=== PATIENT | female | born 1950 | race Caucasian/White ===

== ENCOUNTER 2020-07-16 09:09 | Outpatient (REF) | payer MEDICARE, SELFPAY ==
[2020-07-16 12:24] LABS: Estimated Average Glucose 131 mg/dL; Hemoglobin A1C 152.5171 umol/L; Hemoglobin A1c % 6.2 %
[2020-07-16 12:26] LABS: Alanine Aminotransferase 10 U/L (0-31); Albumin Level 3.9 g/dL (3.5-5.0); Alkaline Phosphatase 77 U/L (39-117); Anion Gap 13 (12-20); Aspartate Amino Transferase 14 U/L (5-31); Bilirubin Total 0.6 mg/dL (0.0-1.0); Blood Urea Nitrogen 22 mg/dL (9-16); Calcium 8.8 mg/dL (8.4-10.2); Carbon Dioxide 32 mmol/L (22-29); Chloride 100 mmol/L (96-108); Cholesterol 169 mg/dL; Estimated Glomerular Filt Rate > 60; Glucose Fasting 115 mg/dL (60-99); HDL Cholesterol 45 mg/dL; LDL Cholesterol Calculated 104 mg/dl; Potassium 4.9 mmol/l (3.3-5.1); Sodium 140 mmol/L (135-145); Total Protein 6.6 g/dL (6.5-8.0); Triglycerides 103 mg/dL
[2020-07-16 13:34] LABS: Microalbumin Urine < 5.0 mg/L
== END 2020-07-16 09:10 | disposition home or self-care (01) ==
LOC: HO.HMGCLDS 09:09
PROVIDERS: PCP Internal Medicine; Visit Provider Internal Medicine
DX: E11.9 Type 2 diabetes mellitus without complications (principal); I25.10 Atherosclerotic heart disease of native coronary artery without angina pectoris; E55.9 Vitamin D deficiency, unspecified; I10 Essential (primary) hypertension; E78.5 Hyperlipidemia, unspecified; Z78.0 Asymptomatic menopausal state
CPT/HCPCS: 36415; 80053; 80061; 82043; 82306; 83036

== ENCOUNTER 2020-12-24 08:28 | Outpatient (REF) | payer MEDICARE, SELFPAY ==
[2020-12-24 11:31] LABS: Estimated Average Glucose 140 mg/dL; Hemoglobin A1c % 6.5 %
[2020-12-24 11:44] LABS: Alanine Aminotransferase 8 U/L (0-31); Albumin Level 3.9 g/dL (3.5-5.0); Alkaline Phosphatase 78 U/L (39-117); Anion Gap 13 (12-20); Aspartate Amino Transferase 15 U/L (5-31); Bilirubin Total 0.6 mg/dL (0.0-1.0); Blood Urea Nitrogen 23 mg/dL (9-16); Calcium 9.3 mg/dL (8.4-10.2); Carbon Dioxide 30 mmol/L (22-29); Chloride 102 mmol/L (96-108); Cholesterol 156 mg/dL; Estimated Glomerular Filt Rate > 60; Glucose Fasting 124 mg/dL (60-99); HDL Cholesterol 51 mg/dL; LDL Cholesterol Calculated 87 mg/dl; Potassium 4.8 mmol/L (3.3-5.1); Sodium 140 mmol/L (135-145); Total Protein 6.4 g/dL (6.5-8.0); Triglycerides 90 mg/dL
[2020-12-24 11:56] LABS: Vitamin D 25-OH Total 48.4 ng/mL (>30)
== END 2020-12-24 08:29 | disposition home or self-care (01) ==
LOC: HO.HMGCLDS 08:28
PROVIDERS: PCP Internal Medicine; Visit Provider Internal Medicine
DX: E11.9 Type 2 diabetes mellitus without complications (principal); I25.10 Atherosclerotic heart disease of native coronary artery without angina pectoris; E55.9 Vitamin D deficiency, unspecified; I10 Essential (primary) hypertension; E78.5 Hyperlipidemia, unspecified; Z78.0 Asymptomatic menopausal state
CPT/HCPCS: 36415; 80053; 80061; 82306; 83036

== ENCOUNTER 2022-05-25 03:32 | Inpatient (IN) | payer MEDICARE, SELFPAY ==
[2022-05-25] VITALS (7 sets, daily range): BP systolic 135–165; BP diastolic 42–78; PULSE 71–88; RESP 16–20; TEMP 36.4–36.8; O2SAT 92–98; BMI 48.8
--- NOTE | ~2022-05-25 | CT_ITS ---
EXAMINATION: CT ABDOMEN AND PELVIS WITH CONTRAST CLINICAL INFORMATION: Upper abdominal pain. COMPARISON: None TECHNIQUE: Multidetector volumetric images were obtained from the superior aspect of the liver through the pubic symphysis following administration 85 mL of Omnipaque 350 intravenous contrast. Sagittal and coronal reformatted images were obtained on the technologist's workstation. Oral contrast: No This CT examination was performed using dose optimization techniques as appropriate, variously including the following: *Automated exposure control *Adjustment of mA and/or kV according to patient size (this includes techniques or standardized protocols for targeted exams where dose is matched to indication/reason for exam; i.e. extremities or head) *Use of iterative reconstruction technique DLP: 1103 mGy-cm FINDINGS: LUNG BASES: The visualized lung bases are clear. Coronary artery calcifications noted. LIVER, GALLBLADDER, AND BILIARY TREE: The liver is normal in size, shape, and attenuation. No focal hepatic lesion or biliary ductal dilatation is present. Stones noted in the gallbladder lumen. No wall thickening or adjacent inflammation. PANCREAS: The pancreatic parenchyma is homogenous. Faint inflammatory stranding noted surrounding the pancreatic head. SPLEEN: Unremarkable. ADRENAL GLANDS: Unremarkable. KIDNEYS AND URETERS: The kidneys are normal in size, shape, and attenuation. No hydronephrosis, hydroureter, or calculi seen. No perinephric stranding. BLADDER: Unremarkable. GASTROINTESTINAL TRACT: The small and large bowel are unremarkable. The appendix is unremarkable. ABDOMINAL WALL: No significant hernia is appreciated. LYMPH NODES: Normal. VASCULAR: Unremarkable. PELVIC VISCERA: Uterus not seen. No adnexal mass. Unremarkable. OSSEOUS STRUCTURES: No acute or suspicious osseous abnormality. Mild degenerative ch 1. Faint inflammatory stranding noted surrounding the pancreatic head. Correlate for pancreatitis. 2. Cholelithiasis. N: No significant abnormality. Fleischner guidelines were followed.
--- NOTE | ~2022-05-25 | US_ITS ---
EXAMINATION: US ABDOMEN COMPLETE CLINICAL INFORMATION: Gallstone pancreatitis. COMPARISON: CT abdomen and pelvis 05/25/2022. X-ray KUB 06/28/2014. X-ray abdomen 06/23/2014. Ultrasound abdomen complete 06/05/2013. TECHNIQUE: Real-time imaging of the abdominal viscera. FINDINGS: PANCREAS: Normal. ABDOMINAL AORTA: Not well visualized due to bowel gas INFERIOR VENA CAVA: Normal LIVER: The liver is normal in size. The liver contour is normal. Liver echotexture is slightly increased. No focal hepatic lesion. There is no intrahepatic biliary duct dilatation seen. GALLBLADDER: The gallbladder is abnormal appearing. Gallbladder is normal in size. There are gallstones. There is a heterogeneous partially calcified 2.3 x 3.5 cm mass in the gallbladder with some vascularity. The gallbladder wall is thickened measuring 0.7 cm. This is a new finding from previous exam. COMMON BILE DUCT: The distal common bile duct is not well visualized. The proximal duct is normal in caliber measuring 0.4 cm in diameter. RIGHT KIDNEY: Normal. No hydronephrosis. No renal calculi or focal parenchymal lesions. The kidney measures 11.2 cm in maximum dimension. LEFT KIDNEY: 1.4 x 1 x 1.1 cm cyst in the lateral midpole. No hydronephrosis or renal calculi. The kidney measures 10.2 cm in maximum dimension. SPLEEN: Not well visualized. FREE FLUID: None. US/US abdomen complete IMPRESSION: Abnormal appearing gallbladder. Gallstones. 2.3 x 3.5 cm heterogeneous partially calcified gallbladder mass and thickened gallbladder wall. Differential would include stones and sludge ball versus neoplasm. Normal caliber intrahepatic bile ducts and proximal common bile duct. The distal common bile duct is not well visualized.
--- NOTE | 2022-05-25 03:35 | ED.ABDPAIN ---
HPI - Abdominal Pain General Chief Complaint: Abdominal Pain Stated Complaint: abdominal pain Time Seen by Provider: 05/25/22 03:35 Source: patient Mode of arrival: EMS Limitations: no limitations History of Present Illness HPI narrative: Patient with perforated diverticulitis in the past complaining of upper abdomen right upper quadrant pain for last 2 days as with nausea and bloating is unable to eat much because of pain. No fever no chills no diarrhea pain radiates to the back. No chest pain no shortness of breath patient does complain of bloating nose and upper abdominal pain off and on for last 2- 3 years was told by PCP that she has a hiatal hernia Related Data Home Medications Medication Instructions Recorded Confirmed acetaminophen 500 mg tablet 500 mg PO Q6H PRN 03/28/21 05/09/22 (Tylenol Extra Strength) Previous Rx's Medication Instructions Recorded tizanidine 2 mg tablet 2 mg PO .QD PRN muscle spasticity 03/28/21 #30 tabs rosuvastatin 5 mg tablet 5 mg PO . 4 times a week 90 days 08/18/21 #48 tabs ezetimibe 10 mg tablet 10 mg PO DAILY #90 tabs 09/09/21 metoprolol succinate 100 mg 100 mg PO BEDTIME #90 tabs 10/05/21 tablet,extended release 24 hr citalopram 20 mg tablet 20 mg PO DAILY #90 caps 01/05/22 lisinopril 10 mg tablet 10 mg PO QAM #90 caps 01/05/22 Allergies Allergy/AdvReac Type Severity Reaction Status Date / Time adhesive tape Allergy Intermediate BLISTERS/LOCALIZED Verified 05/09/22 09:26 ITCHING codeine [CODEINE] Allergy Intermediate RASH, Verified 05/09/22 09:26 stomach upset atorvastatin [From Lipitor] Allergy Unknown leg cramps Verified 05/09/22 09:26 pravastatin Allergy Unknown leg cramps Verified 05/09/22 09:26 simvastatin Allergy Unknown leg cramps Verified 05/09/22 09:26 Ztjrwfn-[id number]-ZwF Reductase AdvReac Intermediate MYALGIAS Verified 05/09/22 09:26 Inhibitor [[id number] REDUCTASE INHIBITOR] Review of Systems Review of Systems Yes all other systems are reviewed and are negative PMFSH Past Medical History Medical History Abdominal gas pain Anxiety disorder CAD (coronary artery disease) Degenerative joint disease of knee, left Dyslipidemia Endometrial carcinoma Essential hypertension Macular degeneration Menopause Non-ST elevation myocardial infarction (NSTEMI) Ocular herpes simplex Type 2 diabetes mellitus without complication, without long-term current use of insulin Vitamin D deficiency Surgical History H/O heart artery stent History of 2 sections History of hysterectomy History of tonsillectomy History of total right knee replacement Family History Family History Father CVD (cardiovascular disease) Mother Hyperlipemia Manic depression Mental illness in member of household Mental health disorder Sister Stroke Manic depression History of mental problems Son Drug addiction Substance use disorder Daughter No problems noted. Social History Social History Alcohol intake: never Patient Tobacco Use Status: Never used Tobacco Smoked in Last 30 Days: No e-Cigarette/Vaping Use: Never Used Use of substances other than those prescribed or required for medical reasons: No Advance Directives: Yes Advance Directives on File: Yes Advance Directives Date on File: 05/09/22 Physical Exam ED Vital Signs: Vital Signs - 24 hr 05/25/22 03:39 05/25/22 04:49 05/25/22 06:17 Temperature 97.9 F 98.0 F 98.1 F Pulse Rate 84 83 80 Respiratory Rate 18 16 17 Blood Pressure 165/55 H 142/42 H 159/60 H Pulse Oximetry 96 95 94 Oxygen Delivery Method Room Air Room Air Room Air BMI result Body Mass Index 48.8 Appearance: Alert. Oriented X3. No acute distress. Eyes: PERRLA, No Nystagmus ENT: Pharynx normal. Oral Mucosa moist Neck: Normal inspection. Neck supple. CVS: Normal heart rate and rhythm. Pulses normal. Respiratory: No respiratory distress. Equal air entry bilateral, no wheezing/rales/rhonchi Abdomen: Soft , tenderness right upper quadrant, and epigastric area. Bowel sounds are present, no mass palpable, no CVA tenderness Skin: Skin warm and dry. Normal skin color. Normal skin turgor. Extremities: No lower extremity edema. No calf tenderness Neuro: Oriented X 3. No motor deficit. Medications Administered Discontinued Medications Generic Name Dose Route Start Last Admin Trade Name Subhash PRN Reason Stop Dose Admin Famotidine 20 mg 05/25/22 03:46 05/25/22 04:05 Famotidine/Pf 20 Mg/2 Ml Vial IVPUSH 05/25/22 03:47 20 mg ONCE ONE Administration Sodium Chloride 1,000 mls @ 999 mls/hr 05/25/22 03:45 05/25/22 04:05 Ns IV 05/25/22 04:45 999 mls/hr .Q1H1M ONE Administration Piperacillin Sod/Tazobactam 50 mls @ 100 mls/hr 05/25/22 05:49 05/25/22 06:09 Sod 3.375 gm/ Sodium Chloride IV 05/25/22 06:18 100 mls/hr ONCE ONE Administration Iohexol 85 ml 05/25/22 04:35 05/25/22 04:35 Iohexol 350 Mg/Ml 100 Ml Infus..Btl IV 05/25/22 04:36 85 ml ONCE ONE Administration Morphine Sulfate 4 mg 05/25/22 03:46 05/25/22 04:05 Morphine Sulfate 4 Mg/Ml Cartridge IVPUSH 05/25/22 03:47 4 mg ONCE ONE Administration Protocol Morphine Sulfate 4 mg 05/25/22 06:24 05/25/22 06:28 Morphine Sulfate 4 Mg/Ml Cartridge IVPUSH 05/25/22 06:25 4 mg ONCE ONE Administration Protocol Ondansetron HCl 4 mg 05/25/22 03:46 05/25/22 04:05 Ondansetron Hcl 4 Mg/2 Ml Vial IVPUSH 05/25/22 03:47 4 mg ONCE ONE Administration MDM - Abdominal Pain MDM Narrative Medical decision making narrative: Patient pain in right upper quadrant epigastric area with elevated LFTs workup showed gallstones with pancreatitis will admit patient for MRCP and evaluation Differential Diagnosis Differential diagnosis: Likely abdominal pain, pancreatitis and peptic ulcer disease Lab Data Attestation: I reviewed the patient's lab results. Result diagrams: 05/25/22 03:53 05/25/22 03:53 Labs: Lab Results 05/25/22 05/25/22 05/25/22 Range/Units 03:52 03:52 03:53 WBC 15.9 H (4.8-10.8) X10*3/uL RBC 4.44 (4.20-5.50) X10*6/uL Hgb 13.2 (12.0-16.0) g/dl Hct 40.5 (37.0-47.0) % MCV 91.2 (80.0-98.0) fL MCH 29.7 (27.0-33.0) pg MCHC 32.6 (31.0-35.0) g/dl RDW 12.7 (11.0-16.0) % Plt Count 271 (160-400) X10*3/uL MPV 9.3 L (9.4-12.3) fL Immature Gran % (Auto) 0.4 (0.0-0.4) % Neut % (Auto) 86.6 H (45-73) % Lymph % (Auto) 6.5 L (20-40) % [place] % (Auto) 6.1 (2-11) % Eos % (Auto) 0.1 (0-4) % Baso % (Auto) 0.3 (0-2) % Lymph # (Auto) 1.0 L (1.2-4.9) X10*3/uL [place] # (Auto) 1.0 (0.1-1.2) X10*3/uL Eos # (Auto) 0.0 (0.0-0.4) X10*3/uL Baso # (Auto) 0.0 (0.0-0.2) X10*3/uL Abs Immat Gran (auto) 0.07 H (0.00-0.03) X10*3/uL Absolute Neuts (auto) 13.8 H (2.0-8.3) x10*3/uL Absolute Nucleated RBC 0.000 (0.0-0.012) X10*3/uL Nucleated RBC % (auto) 0.0 (0.0-0.2) /100WBC PT (10.0-13.1) SEC INR (0.9-1.1) Sodium (135-145) mmol/L Potassium (3.3-5.1) mmol/L Chloride (96-108) mmol/L Carbon Dioxide (22-29) mmol/L Anion Gap (12-20) BUN (9-16) mg/dL Creatinine (0.5-1.4) mg/dL Estim Creat Clear Calc Estimated GFR Random Glucose (60-115) mg/dL Lactic Acid 1.4 (0.5-2.0) mmol/L Calcium (8.4-10.2) mg/dL Total Bilirubin (0.0-1.0) mg/dL AST (5-31) U/L ALT (0-31) U/L Alkaline Phosphatase (39-117) U/L Troponin I High Sens (<3.5-17.0) ng/L Total Protein (6.5-8.0) g/dL Albumin (3.5-5.0) g/dL Lipase (8-78) U/L COVID-19 ([facility]) Negative (Negative) COVID-19 Clin Com See Note 05/25/22 05/25/22 05/25/22 Range/Units 03:53 04:21 04:21 WBC (4.8-10.8) X10*3/uL RBC (4.20-5.50) X10*6/uL Hgb (12.0-16.0) g/dl Hct (37.0-47.0) % MCV (80.0-98.0) fL MCH (27.0-33.0) pg MCHC (31.0-35.0) g/dl RDW (11.0-16.0) % Plt Count (160-400) X10*3/uL MPV (9.4-12.3) fL Immature Gran % (Auto) (0.0-0.4) % Neut % (Auto) (45-73) % Lymph % (Auto) (20-40) % [place] % (Auto) (2-11) % Eos % (Auto) (0-4) % Baso % (Auto) (0-2) % Lymph # (Auto) (1.2-4.9) X10*3/uL [place] # (Auto) (0.1-1.2) X10*3/uL Eos # (Auto) (0.0-0.4) X10*3/uL Baso # (Auto) (0.0-0.2) X10*3/uL Abs Immat Gran (auto) (0.00-0.03) X10*3/uL Absolute Neuts (auto) (2.0-8.3) x10*3/uL Absolute Nucleated RBC (0.0-0.012) X10*3/uL Nucleated RBC % (auto) (0.0-0.2) /100WBC PT 12.2 (10.0-13.1) SEC INR 1.1 (0.9-1.1) Sodium 137 (135-145) mmol/L Potassium 4.4 (3.3-5.1) mmol/L Chloride 100 (96-108) mmol/L Carbon Dioxide 26 (22-29) mmol/L Anion Gap 15 (12-20) BUN 21 H (9-16) mg/dL Creatinine 0.84 (0.5-1.4) mg/dL Estim Creat Clear Calc 69.4 Estimated GFR > 60 Random Glucose 193 H (60-115) mg/dL Lactic Acid (0.5-2.0) mmol/L Calcium 9.2 (8.4-10.2) mg/dL Total Bilirubin 3.5 H (0.0-1.0) mg/dL AST 255 H (5-31) U/L ALT 354 H (0-31) U/L Alkaline Phosphatase 146 H (39-117) U/L Troponin I High Sens < 3.5 (<3.5-17.0) ng/L Total Protein 6.7 (6.5-8.0) g/dL Albumin 3.8 (3.5-5.0) g/dL Lipase 2497 H (8-78) U/L COVID-19 ([facility]) (Negative) COVID-19 Clin Com Discharge Plan Discharge Clinical Impression: Gallstone pancreatitis Patient Disposition: Admitted As Inpatient
--- NOTE | 2022-05-25 03:48 | ECG_ITS ---
Test Reason : ABD PAIN Blood Pressure : / mmHG Vent. Rate : 083 BPM Atrial Rate : 083 BPM P-R Int : 160 ms QRS Dur : 080 ms QT Int : 376 ms P-R-T Axes : 058 020 026 degrees QTc Int : 441 ms Normal sinus rhythm Nonspecific ST and T wave abnormality Abnormal ECG When compared with ECG of 20-JUN-2014 08:34, No significant change was found Referred By: Viet Garcia Electronically Signed By:DENISA LUA MD
[2022-05-25 03:58] LABS: MANUAL DIFF FLAG NO
[2022-05-25 04:00] LABS: Basophils Percent Auto 0.3 % (0-2); Eosinophils Percent Auto 0.1 % (0-4); Hematocrit 40.5 % (37.0-47.0); Hemoglobin 13.2 g/dl (12.0-16.0); Imm Gran Abs Auto 0.07 X10*3/uL (0.00-0.03); Imm Gran Pct Auto 0.4 % (0.0-0.4); Lymphocytes Percent Auto 6.5 % (20-40); Mean Corpuscular HGB Conc 32.6 g/dl (31.0-35.0); Mean Corpuscular Hemoglobin 29.7 pg (27.0-33.0); Mean Corpuscular Volume 91.2 fL (80.0-98.0); Mean Platelet Volume 9.3 fL (9.4-12.3); Monocytes Percent Auto 6.1 % (2-11); Neutrophils Absolute Auto 13.8 x10*3/uL (2.0-8.3); Neutrophils Percent Auto 86.6 % (45-73); Platelet Count 271 X10*3/uL (160-400); Red Blood Count 4.44 X10*6/uL (4.20-5.50); Red Cell Distribution Width 12.7 % (11.0-16.0); White Blood Count 15.9 X10*3/uL (4.8-10.8)
[2022-05-25] MEDS: Morphine Sulfate 4 MG/ML CARTRIDGE IVPUSH ×2 (04:05→06:28)
[2022-05-25] MEDS: 0.9 % Sodium Chloride 1,000 ML 999 ML IV (04:05)
[2022-05-25] MEDS: Famotidine/PF 20 MG/2 ML VIAL IVPUSH (04:05)
[2022-05-25] MEDS: ondansetron HCL 4 MG/2 ML VIAL IVPUSH (04:05)
[2022-05-25 04:11] LABS: Lactic Acid 1.4 mmol/L (0.5-2.0)
[2022-05-25 04:15] LABS: COVID-19 Test Negative (Negative)
[2022-05-25 04:17] LABS: Alanine Aminotransferase 354 U/L (0-31); Albumin Level 3.8 g/dL (3.5-5.0); Alkaline Phosphatase 146 U/L (39-117); Anion Gap 15 (12-20); Aspartate Amino Transferase 255 U/L (5-31); Bilirubin Total 3.5 mg/dL (0.0-1.0); Blood Urea Nitrogen 21 mg/dL (9-16); Calcium 9.2 mg/dL (8.4-10.2); Carbon Dioxide 26 mmol/L (22-29); Chloride 100 mmol/L (96-108); Creatinine Clr Calc Pharmacy 69.4; Estimated Glomerular Filt Rate > 60; Glucose Random 193 mg/dL (60-115); Potassium 4.4 mmol/L (3.3-5.1); Sodium 137 mmol/L (135-145); Total Protein 6.7 g/dL (6.5-8.0)
[2022-05-25 04:26] LABS: Lipase 2497 U/L (8-78)
--- NOTE | 2022-05-25 04:26 | PC.NURSE ---
iv placed in L AC (20G). pt medicated according to MAR. pt reported 8/10 pain in R upper abdomen radiating in between shoulder blades. IV dressing replaced due to positioning
[2022-05-25 04:34] LABS: INTERNATIONAL NORM RATIO 1.1 (0.9-1.1); Prothrombin Time 12.2 SEC (10.0-13.1)
[2022-05-25] MEDS: iohexoL 350 MG/ML 100 ML INFUS..BTL 85 ML IV (04:35)
[2022-05-25 04:50] LABS: Troponin-I High Sensitivity < 3.5 ng/L (<3.5-17.0)
--- OUTSIDE RECORDS SUMMARY | 2022-05-25 04:53 | XMS_ITS | Continuity of Care Document ---
:1950 Author Organization [facility] [place] [address], [address] [place] [address]- Care Team Providers Name Role Phone Sheldon WASHINGTON, Faustina Townsend Primary Care Physician Encounter 05/09/21 - 05/16/21 [facility] [address], [address] [place], [place] [address] Attending Physician: Faustina Chung MD Admitting Physician: Faustina Chung MD Referring Physician: Sheldon WASHINGTON , Faustina Townsend Allergies, Adverse Reactions, Alerts Substance Reaction Severity Status codeine fACIALL RASH Active statins SEVERE MUSCLE CRAMPING Active Adhesive Bandage RASH AT SITE Active Latex Active Immunizations Not Given Vaccine Date Status Refusal Reason pneumococcal 23-valent vaccine1 04/09/15 Not Given Patient Refuses 1Result Note: I believe I received it 2 years ago . Medications acetaminophen 325 mg oral tablet 650 mg, By Mouth, Every 6 hours, Refills 0, Maintenance, 11/10/16 9:22:13 Start Date: 11/10/16 Status: OrderedAspir 81 = 81 mg, By Mouth, Daily, 0 Refills, Maintenance Start Date: 09/24/12 Status: Orderedcitalopram 20 mg oral tablet = 20 mg, By Mouth, Daily, # 30 tablet, 1 Refills, Maintenance, 04/09/15 9:20:34, Tablet, 20 mg By Mouth Daily Start Date: 04/09/15 Status: Ordereddocusate sodium 100 mg oral capsule 1 capsule = 100 mg, By Mouth, 2 times a day, PRN for constipation, # 20 capsule, 0 Refills, Maintenance, 11/02/14 16:41:54, Capsule Start Date: 11/02/14 Status: Orderedgabapentin 100 mg oral capsule 100 mg, By Mouth, 3 times a day, # 90 capsule, Refills 0, Tot. Refills 0, Maintenance, 11/10/16 9:22:21, Print Requisition Start Date: 11/10/16 Stop Date: 12/10/16 Status: OrderedHYDROmorphone 2 mg oral tablet = 2 mg, By Mouth, Every 4 hours, PRN Pain , Mild, 0 Refills, Maintenance, 11/10/16 9:22:23, Tablet Start Date: 11/10/16 Status: OrderedHYDROmorphone 4 mg oral tablet = 4 mg, By Mouth, Every 4 hours, PRN Pain , Moderate, 0 Refills, Maintenance, 11/10/16 9:22:30, Tablet Start Date: 11/10/16 Status: Orderedlisinopril 10 mg oral tablet 1 tablet = 10 mg, By Mouth, Daily, # 30 tablet, 1 Refills, Maintenance, 04/09/15 9:23:49, Tablet, 1 tablet By Mouth Daily Start Date: 04/09/15 Status: OrderedMaalox Plus Liquid 30 mL, By Mouth, Every 4 hours, PRN Nausea & Vomiting, 0 Refills, Maintenance, 11/10/16 9:22:14,Suspension Start Date: 11/10/16 Status: Orderedmetoprolol 100 mg oral tablet 100 mg, By Mouth, Daily in AM, Refills 0, Maintenance, 11/12/16 9:36:17 Start Date: 11/12/16 Status: OrderedMilk of Magnesia Liquid 30 mL, By Mouth, Daily, PRN Constipation, 0 Refills, Maintenance, 11/10/16 9:22:38, Suspension Start Date: 11/10/16 Status: OrderedMiraLax Powder 1 pack/packet = 17 Gm, By Mouth, Daily, 0 Refills, Maintenance, 11/10/16 9:22:41, Powder Start Date: 11/10/16 Status: Orderedsenna 187 mg oral tablet 1 tablet = 8.6 mg, By Mouth, Daily at bedtime, 0 Refills, Maintenance, 11/10/16 9:22:46, Tablet Start Date: 11/10/16 Status: Orderedwarfarin 1 mg oral tablet See Instructions, 1 to 10 tabs as directed by doctor Mirza for 4 weeks post op, # 150 tablet, 0 Refills, Maintenance, 11/10/16 9:36:21 Start Date: 11/10/16 Status: Orderedwarfarin 4 mg oral tablet = 4 mg, By Mouth, Once, 0 Refills, Maintenance, 11/10/16 9:22:52, Tablet Start Date: 11/10/16 Status: OrderedZetia 10 mg oral tablet 1 tablet = 10 mg, By Mouth, Daily, # 90 tablet, 3 Refills, Maintenance, 10/23/14 10:04:26, 1 tablet By Mouth Daily,x90 days Start Date: 10/23/14 Stop Date: 10/18/15 Status: Ordered Problem List Condition Effective Dates Status Health Status Informant CAD (coronary artery Active disease)(Confirmed) Bilateral knee pain(Confirmed) Active Social History Social History Type Response Smoking Status Never smoker; Tobacco user i n household: No entered on: 06/09/14 Sex
--- NOTE | 2022-05-25 05:35 | PC.NURSE ---
this rn entered pt room to asses pt current pain level. pt reported 5/10 pain. pt ambulated to bathroom. pt connected back to IV fluids, tele, and bp cuff. call tomlin provided to pt at this time. pt A&O x3
--- NOTE | 2022-05-25 06:03 | PC.NURSE ---
per Dr. Sprague no blood cultures needed prior to administration of IV antibiotics
[2022-05-25] MEDS: Piperacillin Sodium/Tazobactam 3.375 GM in 0.9 % Sodium Chloride 50 ML IV (06:09)
[2022-05-25 07:16] LABS: Glucose, Whole Blood 137 mg/dL (60-115)
--- NOTE | 2022-05-25 07:46 | PHA.MEDREC ---
Pharmacy Consult ? Medication Reconciliation Pharmacy has completed the medication reconciliation.
--- NOTE | 2022-05-25 07:55 | P.HPHOSP_ITS ---
History of Present Illness Date of Service: 05/25/22 Chief Complaint: abd pain 72F PMH CAD s/p 3 stents, DM2-diet controlled, HTN, HLD, morbid obesity, presented with abdominal pain. Patient states that her pain started 2 days prior to presentation. Was epigastric radiating to right upper quadrant and right flank. Ten out 10, constant, worse with eating, relieved by bowel rest and opiates. Associated with nausea vomiting inability to tolerate p.o.. Patient has had right upper quadrant abdominal pain worsened by fatty meals on and off in the past, however, has never been this bad. Denies chest pain, sandy rtness of breath, fever, chills. In ED CT abdomen showed acute pancreatitis and cholelithiasis. Lab significant for total bilirubin of 3.5, ALT 354 with AST 255. Lipase 2497. Review of Systems Review of Systems: Constitutional: Denies fever, denies Chills Eyes: denies blurry vision ENT: denies sore throat CVS: denies chest pain Respiratory: Denies dyspnea GI: abdominal pain : denies dysuria MSK: denies neck pain Skin: denies rash Neuro: denies specific motor weakness Psych: denies suicidal ideation Endocrine: denies heat/cold intolerance Hematologic: denies easy bleeding Allergy: denies hives [facility] Medical History Abdominal gas pain Anxiety disorder CAD (coronary artery disease) Degenerative joint disease of knee, left Dyslipidemia Endometrial carcinoma Essential hypertension Macular degeneration Menopause Non-ST elevation myocardial infarction (NSTEMI) Ocular herpes simplex Type 2 diabetes mellitus without complication, without long-term current use of insulin Vitamin D deficiency Family History Father CVD (cardiovascular disease) Mother Hyperlipemia Manic depression Mental illness in member of household Mental health disorder Sister Stroke Manic depression History of mental problems Son Drug addiction Substance use disorder Daughter No problems noted. Surgical History H/O heart artery stent History of 2 sections History of hysterectomy History of tonsillectomy History of total right knee replacement Social History Alcohol intake: never Patient Tobacco Use Status: Never used Tobacco Smoked in Last 30 Days: No e-Cigarette/Vaping Use: Never Used Use of substances other than those prescribed or required for medical reasons: No Advance Directives: Yes Advance Directives on File: Yes Advance Directives Date on File: 05/09/22 Meds Allergies Allergy/AdvReac Type Severity Reaction Status Date / Time adhesive tape Allergy Intermediate BLISTERS/LOCALIZED Verified 05/09/22 09:26 ITCHING codeine [CODEINE] Allergy Intermediate RASH, Verified 05/09/22 09:26 stomach upset Wxoyorb-EWM-RvS Reductase AdvReac Intermediate MYALGIAS Verified 05/09/22 09:26 Inhibitor [[id number] REDUCTASE INHIBITOR] Active Medications: Current Medications Aspirin (Aspirin Enteric Coated 81 Mg Tablet.Dr) 81 mg PO DAILY [facility] Lactated Ringer's (Lr) 1,000 mls @ 150 mls/hr IVCONT .Q6H40M [facility] Metoprolol Succinate (Metoprolol Succinate Er 100 Mg Tab.Er.24h) 100 mg PO DAILY [facility]; Protocol Non-Formulary Medication (Citalopram) 20 mg PO DAILY [facility] Pharmacy Consult (Consult Rx Perform Med Rec) 1 each MISCELLANE ONCE PRN PRN Reason: Consult order Home Medications Medication Instructions Recorded Confirmed Last Taken Type aspirin 81 mg tablet,delayed 81 mg PO DAILY 05/25/22 05/25/22 05/24/22 History release docusate sodium 100 mg tablet 100 mg PO DAILY 05/25/22 05/25/22 05/24/22 History lisinopril 10 mg tablet 10 mg PO DAILY 05/25/22 05/25/22 05/24/22 History lorazepam 0.5 mg tablet 0.5 - 1 mg PO DAILY PRN Anxiety 05/25/22 05/25/22 Unknown History magnesium oxide 400 mg (241.3 mg 400 mg PO DAILY 05/25/22 05/25/22 05/24/22 History magnesium) tablet metoprolol succinate 100 mg 100 mg PO DAILY 05/25/22 05/25/22 05/24/22 History tablet,extended release 24 hr rosuvastatin 5 mg tablet 5 mg PO Q2D 05/25/22 05/25/22 05/23/22 History Physical Exam Vital Signs and Narrative: Vital Signs: Last Vital Signs Temp 97.9 F 05/25/22 07:09 Pulse 82 05/25/22 07:09 Resp 16 05/25/22 07:09 BP 135/53 L 05/25/22 07:09 Pulse Ox 92 05/25/22 07:09 O2 Del Method 05/25/22 07:09 BMI result Body Mass Index 48.8 General: AO X 3, no acute distress Resp: CTA bilateral, no accessory muscles used CVS: S1,S2,RRR GI: soft, tender, non distended Neuro: motor grossly intact, alert Psych: appropriate affect, appropriate insight Results Labs CBC and Chem 7: 05/25/22 03:53 05/25/22 03:53 Labs: Laboratory Results - last 24 hr 05/25/22 05/25/22 05/25/22 03:52 03:52 03:53 MCV 91.2 MCH 29.7 MCHC 32.6 RDW 12.7 Plt Count 271 MPV 9.3 L Immature Gran % (Auto) 0.4 Neut % (Auto) 86.6 H Lymph % (Auto) 6.5 L [place] % (Auto) 6.1 Eos % (Auto) 0.1 Baso % (Auto) 0.3 Lymph # (Auto) 1.0 L [place] # (Auto) 1.0 Eos # (Auto) 0.0 Baso # (Auto) 0.0 Abs Immat Gran (auto) 0.07 H Absolute Neuts (auto) 13.8 H Absolute Nucleated RBC 0.000 Nucleated RBC % (auto) 0.0 PT INR Anion Gap Estim Creat Clear Calc Estimated GFR POC Glucose Random Glucose Lactic Acid 1.4 Calcium Total Bilirubin AST ALT Alkaline Phosphatase Troponin I High Sens Total Protein Albumin Lipase COVID-19 ([facility]) Negative COVID-19 Clin Com See Note 05/25/22 05/25/22 05/25/22 03:53 04:21 04:21 MCV MCH MCHC RDW Plt Count MPV Immature Gran % (Auto) Neut % (Auto) Lymph % (Auto) [place] % (Auto) Eos % (Auto) Baso % (Auto) Lymph # (Auto) [place] # (Auto) Eos # (Auto) Baso # (Auto) Abs Immat Gran (auto) Absolute Neuts (auto) Absolute Nucleated RBC Nucleated RBC % (auto) PT 12.2 INR 1.1 Anion Gap 15 Estim Creat Clear Calc 69.4 Estimated GFR > 60 POC Glucose Random Glucose 193 H Lactic Acid Calcium 9.2 Total Bilirubin 3.5 H AST 255 H ALT 354 H Alkaline Phosphatase 146 H Troponin I High Sens < 3.5 Total Protein 6.7 Albumin 3.8 Lipase 2497 H COVID-19 ([facility]) COVID-19 Clin Com 05/25/22 07:07 MCV MCH MCHC RDW Plt Count MPV Immature Gran % (Auto) Neut % (Auto) Lymph % (Auto) [place] % (Auto) Eos % (Auto) Baso % (Auto) Lymph # (Auto) [place] # (Auto) Eos # (Auto) Baso # (Auto) Abs Immat Gran (auto) Absolute Neuts (auto) Absolute Nucleated RBC Nucleated RBC % (auto) PT INR Anion Gap Estim Creat Clear Calc Estimated GFR POC Glucose 137 H Random Glucose Lactic Acid Calcium Total Bilirubin AST ALT Alkaline Phosphatase Troponin I High Sens Total Protein Albumin Lipase COVID-19 (TANA) COVID-19 Clin Com Assessment and Plan (1) Gallstone pancreatitis: Status: Acute Plan 72F PMH CAD s/p 3 stents, DM2-diet controlled, HTN, HLD, morbid obesity, presented with abdominal pain acute pancreatitis, likely gallstone iv hydration, iv dilaudid, clear liquids, check MRCP GI and surgery eval monitor LFTs CAD asa hold statin HTN toprol DM 2 diet controlled morbid obesity weight loss recommended full code dvt prophylaxis - lovenox Patient with gallstone pancreatitis requiring aggressive IV hydration and IV pain medication. Likely to need cholecystectomy prior to discharge, therefore, expected require at least 2 midnights inpatient Quality Stroke Does the patient have a stroke diagnosis?: No VTE Prior VTE?: No VTE Risk Level:: Medical - moderate - high VTE Device Contraindication: Treatment Not Indicated VTE Drug Contraindication: N/A - Med Ordered
[2022-05-25] MEDS: Enoxaparin Sodium 40 MG/0.4 ML SYRINGE SUBCUT (08:35)
[2022-05-25] MEDS: Lactated Ringers 1,000 ML 150 ML IVCONT ×3 (08:35→21:23)
[2022-05-25] MEDS: Escitalopram Oxalate 10 MG TABLET PO (08:36)
[2022-05-25] MEDS: Metoprolol Succinate ER 100 MG TAB.ER.24H PO (08:36)
[2022-05-25] MEDS: Aspirin Enteric Coated 81 MG TABLET.DR PO (08:36)
--- NOTE | 2022-05-25 08:59 | P.CONGS_ITS ---
History of Present Illness Consult details Consult date: 05/25/22 Reason for consult: abdominal pain Narrative: 72-year-old female patient presenting with a 2 day history of abdominal pain in the epigastrium with radiation into the midback. She reports a prior history of similar pain in the upper abdomen approximately 6 months ago which resolved after 24 hours. The current episode continue to increase in severity and was associated with shortness of breath. She reports a prior history of diverticulitis and initially thought this was the diverticulitis. She reports a previous history of a colo vesical fistula, which was repaired by Dr. Medrano. She reports anorexia and nausea, pain 10/10 on initial presentation. She also reports diarrhea for the past 2 days. The pain started after eating a chicken sandwich with mayonnaise. Workup in the emergency department included a WBC of 15 K, CT abdomen and pelvis revealing gallstones within the gallbladder and thickening of the pancreatic head. Lipase was also noted to be elevated at 2497. Review of Systems Review of Systems: Yes all other systems are reviewed and are negative Constitutional: Constitutional: Denies chills, Denies fever(s), Denies headache(s), Reports poor appetite and Denies weakness ENT: Denies headache(s) Cardiovascular: Cardiovascular: Denies chest pain, Denies irregular heart rhythm, Denies palpitations and Denies dyspnea Respiratory: Respiratory: Denies cough, Denies excessive phlegm production and Denies dyspnea Gastrointestinal: Gastrointestinal: Reports abdominal pain, Reports bloating, Reports change in bowel habits, Denies constipation, Denies heartburn, Reports diarrhea, Reports nausea and Denies vomiting Genitourinary: Genitourinary: Denies urinary frequency Musculoskeletal: Musculoskeletal: Denies back pain, Denies muscle weakness and Denies numbness Integumentary/Breasts: Skin/Breast: Denies changing lesions and Denies unusual bruising Neurologic: Denies headache(s), Denies numbness, Denies paresthesias and Denies weakness Psychiatric: Psychiatric: Denies anxiety and Denies depression Endocrine: Endocrine: Denies palpitations Hematologic/Lymphatic: Hematologic/Lymphatic: Denies lymphadenopathy [facility] Past Medical History Medical History Abdominal gas pain Anxiety disorder CAD (coronary artery disease) Degenerative joint disease of knee, left Dyslipidemia Endometrial carcinoma Essential hypertension Macular degeneration Menopause Non-ST elevation myocardial infarction (NSTEMI) Ocular herpes simplex Type 2 diabetes mellitus without complication, without long-term current use of insulin Vitamin D deficiency Family History Family History Father CVD (cardiovascular disease) Mother Hyperlipemia Manic depression Mental illness in member of household Mental health disorder Sister Stroke Manic depression History of mental problems Son Drug addiction Substance use disorder Daughter No problems noted. Surgical History Surgical History H/O heart artery stent History of 2 sections History of hysterectomy History of tonsillectomy History of total right knee replacement Social History Social History Alcohol intake: never Patient Tobacco Use Status: Never used Tobacco Smoked in Last 30 Days: No e-Cigarette/Vaping Use: Never Used Use of substances other than those prescribed or required for medical reasons: No Advance Directives: Yes Advance Directives on File: Yes Advance Directives Date on File: 05/09/22 Meds Allergies Allergy/AdvReac Type Severity Reaction Status Date / Time adhesive tape Allergy Intermediate BLISTERS/LOCALIZED Verified 05/09/22 09:26 ITCHING codeine [CODEINE] Allergy Intermediate RASH, Verified 05/09/22 09:26 stomach upset Odzhsht-XHA-TdR Reductase AdvReac Intermediate MYALGIAS Verified 05/09/22 09:26 Inhibitor [[id number] REDUCTASE INHIBITOR] Active Medications: Current Medications Aspirin (Aspirin Enteric Coated 81 Mg Tablet.) 81 mg PO DAILY [facility] Last Admin: 05/25/22 08:36 Dose: 81 mg Enoxaparin Sodium (Enoxaparin Sodium 40 Mg/0.4 Ml Syringe) 40 mg SUBCUT Q24H [facility] Last Admin: 05/25/22 08:35 Dose: 40 mg Escitalopram Oxalate (Escitalopram Oxalate 10 Mg Tablet) 10 mg PO DAILY [facility] Last Admin: 05/25/22 08:36 Dose: 10 mg Hydromorphone HCl (Hydromorphone Hcl 1 Mg/Ml Syringe) 0.5 mg IVPUSH Q4H PRN; Protocol PRN Reason: Pain, Severe (Pain Scale 7-10) Lactated Ringer's (Lr) 1,000 mls @ 150 mls/hr IVCONT .Q6H40M [facility] Last Admin: 05/25/22 08:35 Dose: 150 mls/hr Metoprolol Succinate (Metoprolol Succinate Er 100 Mg Tab.Er.24h) 100 mg PO TEREZA ADAMS [facility]; Protocol Last Admin: 05/25/22 08:36 Dose: 100 mg Pharmacy Consult (Consult Rx Perform Med Rec) 1 each MISCELLANE ONCE PRN PRN Reason: Consult order Home Medications Medication Instructions Recorded Confirmed Last Taken Type aspirin 81 mg tablet,delayed 81 mg PO DAILY 05/25/22 05/25/22 05/24/22 History release docusate sodium 100 mg tablet 100 mg PO DAILY 05/25/22 05/25/22 05/24/22 History lisinopril 10 mg tablet 10 mg PO DAILY 05/25/22 05/25/22 05/24/22 History lorazepam 0.5 mg tablet 0.5 - 1 mg PO DAILY PRN Anxiety 05/25/22 05/25/22 Unknown History magnesium oxide 400 mg (241.3 mg 400 mg PO DAILY 05/25/22 05/25/22 05/24/22 History magnesium) tablet metoprolol succinate 100 mg 100 mg PO DAILY 05/25/22 05/25/22 05/24/22 History tablet,extended release 24 hr rosuvastatin 5 mg tablet 5 mg PO Q2D 05/25/22 05/25/22 05/23/22 History Physical Exam Vital Signs: Vital Signs: Last Vital Signs Temp 97.9 F 05/25/22 07:09 Pulse 87 05/25/22 08:32 Resp 20 05/25/22 08:32 BP 162/58 H 05/25/22 08:32 Pulse Ox 96 05/25/22 08:32 O2 Del Method 05/25/22 08:32 BMI result Body Mass Index 48.8 Const: General: cooperative and no acute distress Nutritional Appearance: well nourished Orientation/consciousness: patient oriented x3 Limitations: no limitations HEENT: Head: Yes normocephalic and Yes atraumatic Ears: hearing grossly normal bilaterally Resp: Effort & Inspection: normal respiratory effort, no audible wheezes, no cough and no respiratory distress Cardio: Jugular venous distension: no JVD GI: Other: Soft, tender in the epigastrium and right upper quadrant, no rebound or guarding. No mass appreciated. Bowel sounds normoactive Inspection: Yes normal to inspection Skin: Other: Warm, dry, no rash, normal color Neuro: General: patient oriented x3 Extrem: General: Yes no clubbing, cyanosis or edema Results Labs Result diagrams: 05/25/22 03:53 05/25/22 03:53 Labs: Abnormal lab results 05/25/22 05/25/22 05/25/22 Range/Units 03:53 03:53 07:07 WBC 15.9 H (4.8-10.8) X10*3/uL MPV 9.3 L (9.4-12.3) fL Neut % (Auto) 86.6 H (45-73) % Lymph % (Auto) 6.5 L (20-40) % Lymph # (Auto) 1.0 L (1.2-4.9) X10*3/uL Abs Immat Gran (auto) 0.07 H (0.00-0.03) X10*3/uL Absolute Neuts (auto) 13.8 H (2.0-8.3) x10*3/uL BUN 21 H (9-16) mg/dL POC Glucose 137 H (60-115) mg/dL Random Glucose 193 H (60-115) mg/dL Total Bilirubin 3.5 H (0.0-1.0) mg/dL AST 255 H (5-31) U/L ALT 354 H (0-31) U/L Alkaline Phosphatase 146 H (39-117) U/L Lipase 2497 H (8-78) U/L Short CBC 05/25/22 Range/Units 03:53 WBC 15.9 H (4.8-10.8) X10*3/uL Hgb 13.2 (12.0-16.0) g/dl Hct 40.5 (37.0-47.0) % Plt Count 271 (160-400) X10*3/uL BMP 05/25/22 03:53 Sodium 137 Potassium 4.4 Chloride 100 Carbon Dioxide 26 BUN 21 H Creatinine 0.84 Calcium 9.2 Liver Function 05/25/22 Range/Units 03:53 Total Bilirubin 3.5 H (0.0-1.0) mg/dL AST 255 H (5-31) U/L ALT 354 H (0-31) U/L Alkaline Phosphatase 146 H (39-117) U/L Albumin 3.8 (3.5-5.0) g/dL All other labs normal. Imaging Abdomen CT scan report/results: report reviewed and image reviewed CT scan - pelvis: report reviewed and image reviewed Assessment and Plan (1) Gallstone pancreatitis: Status: Acute Plan 72-year-old female patient presenting with a 2 day history of abdominal pain in the epigastrium radiating to the back. This is a recurrent episode of similar symptoms, most recently experienced 6 months ago. Workup revealed evidence of cholelithiasis and pancreatitis. MRCP has been requested to evaluate for common duct stones. Ideally patient will undergo cholecystectomy during this admission once the common bile duct has been determined to be clear and the pancreatitis has improved. The patient expressed understanding and agrees with the plan. Procedures Date of Service Date of Service: 05/25/22
--- NOTE | 2022-05-25 11:06 | PM.EVENT ---
Event Note Date of Service: 05/25/22 Event Note: GI consult dictated She was unable to tolerate mri ultrasound ordered follow lfts
--- NOTE | 2022-05-25 11:45 | CONS_ITS ---
DATE OF SERVICE: 05/25/2022 REFERRING PHYSICIAN: Javier Britt MD REASON FOR CONSULTATION: Gallstone pancreatitis. HISTORY OF PRESENT ILLNESS: The patient is a pleasant 72-year-old woman who was admitted to the hospital after presenting to the emergency room with 2 days of epigastric pain radiating into the back. There were no associated fevers or chills. She denies any nausea or vomiting. She was evaluated in the emergency department with laboratory studies showing elevation of her liver function tests and lipase consistent with pancreatitis. CT scanning was obtained, which is reviewed. This is interpreted as showing gallstones with no signs of cholecystitis. Her bile duct was normal. There was some inflammatory stranding around the pancreatic head. The patient denies any prior history of gallbladder disease. She has had diverticulitis in the past and was concerned that possible symptoms she has had in the past might have been related to diverticulitis or pancreatitis. PAST MEDICAL HISTORY: 1. Diverticular disease. 2. Gallstone pancreatitis as above. 3. Coronary artery disease with history of HI and stent placement. 4. HSV infection. 5. Hypertension. 6. Macular degeneration. 7. Endometrial carcinoma. 8. Hyperlipidemia. 9. Degenerative joint disease. 10. Diabetes mellitus. 11. Vitamin D deficiency. CURRENT MEDICATIONS: Her current medication list is reviewed in the chart. ALLERGIES: MULTIPLE MEDICATION ALLERGIES ARE REVIEWED. FAMILY HISTORY: This is reviewed with the patient and is noncontributory. SOCIAL HISTORY: There is no current tobacco, alcohol, or substance abuse. REVIEW OF SYSTEMS: SKIN: No pruritus. HEENT: Negative. CARDIOPULMONARY: No shortness of breath or chest pain. GASTROINTESTINAL: As above. GENITOURINARY: Negative. NEUROPSYCHIATRIC: Negative. PHYSICAL EXAMINATION: GENERAL: Shows a pleasant female, lying comfortably in bed. VITAL SIGNS: Reviewed in electronic medical record and are stable. SKIN: Anicteric. HEENT: Shows no scleral icterus. NECK: Without lymphadenopathy or thyromegaly. LUNGS: Clear. HEART: Shows regular rate and rhythm. S1, S2. No murmur. ABDOMEN: Soft without focal masses. There is tenderness in the epigastrium to palpation. Bowel sounds are present. No organomegaly is noted. EXTREMITIES: Without edema. LABORATORY DATA: Remarkable for elevation of liver function tests and lipase. CT scanning is reviewed. The patient was scheduled for MRI to further evaluate her bile duct, but was unable to tolerate this due to a panic attack. IMPRESSION: Gallstone pancreatitis. I discussed with the patient that ERCP may be necessary if there is evidence of common duct stones. Her CAT scan does not show this. I would obtain an ultrasound for further evaluation as or MRCP could not be completed. I would recommend monitoring her LFTs. Aspirin has been discontinued in case she needs an ERCP. Thanks for asking me to see her. I will follow her in the hospital with you. MD ARIEL Foley/DOUGLAS / [phone]
--- NOTE | 2022-05-25 13:07 | PC.NURSE ---
report given to med/surgical garment assembler
--- NOTE | 2022-05-25 17:13 | PC.NURSE ---
report received from morning RN, pt A+O, no c/o pain, assistant media buyer per AUG. Call tomlin within reach, safety precautions taken, encouraged to call for help.
[2022-05-25] MEDS: HYDROmorphone HCl 1 MG/ML SYRINGE 0.5 MG IVPUSH (21:17)
[2022-05-26] VITALS: BP 131/58; PULSE 83; RESP 18; TEMP 36.6; O2SAT 96
[2022-05-26 04:00] VITALS: BP 120/62; PULSE 80; RESP 17; TEMP 36.5; O2SAT 96
[2022-05-26] MEDS: Lactated Ringers 1,000 ML 150 ML IVCONT ×3 (04:28→20:34)
[2022-05-26 06:42] LABS: Hematocrit 33.9 % (37.0-47.0); Hemoglobin 10.7 g/dl (12.0-16.0); Mean Corpuscular HGB Conc 31.6 g/dl (31.0-35.0); Mean Corpuscular Hemoglobin 29.9 pg (27.0-33.0); Mean Corpuscular Volume 94.7 fL (80.0-98.0); Mean Platelet Volume 10.3 fL (9.4-12.3); Platelet Count 228 X10*3/uL (160-400); Red Blood Count 3.58 X10*6/uL (4.20-5.50); Red Cell Distribution Width 13.2 % (11.0-16.0); White Blood Count 13.2 X10*3/uL (4.8-10.8)
[2022-05-26] MEDS: Enoxaparin Sodium 40 MG/0.4 ML SYRINGE SUBCUT (07:50)
[2022-05-26] MEDS: Metoprolol Succinate ER 100 MG TAB.ER.24H PO (07:50)
[2022-05-26] MEDS: Escitalopram Oxalate 10 MG TABLET PO (07:50)
[2022-05-26 07:55] LABS: Alanine Aminotransferase 210 U/L (0-31); Albumin Level 3.2 g/dL (3.5-5.0); Anion Gap 13 (12-20); Aspartate Amino Transferase 97 U/L (5-31); Bilirubin Direct 0.7 mg/dL (0.0-0.5); Bilirubin Total 1.2 mg/dL (0.0-1.0); Blood Urea Nitrogen 17 mg/dL (9-16); Carbon Dioxide 28 mmol/L (22-29); Chloride 101 mmol/L (96-108); Creatinine Clr Calc Pharmacy 89.7; Estimated Glomerular Filt Rate > 60; Glucose Fasting 93 mg/dL (60-99); Magnesium 1.9 mg/dL (1.6-2.6); Potassium 3.7 mmol/L (3.3-5.1); Sodium 138 mmol/L (135-145)
[2022-05-26 08:00] VITALS: BP 134/61; PULSE 85; RESP 16; TEMP 37; O2SAT 93
[2022-05-26 08:06] LABS: Alkaline Phosphatase 116 U/L (39-117); Calcium 8.5 mg/dL (8.4-10.2); Total Protein 5.3 g/dL (6.5-8.0)
--- NOTE | 2022-05-26 08:51 | PM.PNGS ---
Subjective Subjective Date of Service: 05/26/22 Interval history: feels better some nausea, minimal abdl pain Physical Exam Vital Signs: Vital Signs: Last Vital Signs Temp 98.6 F 05/26/22 08:00 Pulse 85 05/26/22 08:00 Resp 16 05/26/22 08:00 BP 134/61 05/26/22 08:00 Pulse Ox 93 05/26/22 08:00 O2 Del Method 05/26/22 08:00 BMI result Body Mass Index 48.8 Const: General: comfortable and no acute distress Cardio: Rate: regular rate GI: Palpation (GI): Soft to palpation, not firm, Tenderness to palpation present (GI) (mild, epigastric area) and no guarding Objective Data Active Medications Enoxaparin Sodium (Enoxaparin Sodium 40 Mg/0.4 Ml Syringe) 40 mg SUBCUT Q24H [facility] Last Admin: 05/26/22 07:50 Dose: 40 mg Documented By: CALEB Escitalopram Oxalate (Escitalopram Oxalate 10 Mg Tablet) 10 mg PO DAILY [facility] Last Admin: 05/26/22 07:50 Dose: 10 mg Documented By: CALEB Hydromorphone HCl (Hydromorphone Hcl 1 Mg/Ml Syringe) 0.5 mg IVPUSH Q4H PRN; Protocol PRN Reason: Pain, Severe (Pain Scale 7-10) Last Admin: 05/25/22 21:17 Dose: 0.5 mg Documented By: CURTIS Lactated Ringer's (Lr) 1,000 mls @ 150 mls/hr IVCONT .Q6H40M [facility] Last Admin: 05/26/22 04:28 Dose: 150 mls/hr Documented By: CURTIS Metoprolol Succinate (Metoprolol Succinate Er 100 Mg Tab.Er.24h) 100 mg PO DAILY [facility]; Protocol Last Admin: 05/26/22 07:50 Dose: 100 mg Documented By: CALEB Pharmacy Consult (Consult Rx Perform Med Rec) 1 each MISCELLANE ONCE PRN PRN Reason: Consult order Labs CBC & Chem 7: 05/26/22 05:04 05/26/22 05:04 Labs: Laboratory Results - last 24 hr 05/26/22 05/26/22 05:04 05:04 MCV 94.7 MCH 29.9 MCHC 31.6 RDW 13.2 Plt Count 228 MPV 10.3 Absolute Nucleated RBC 0.000 Nucleated RBC % (auto) 0.0 Anion Gap 13 Estim Creat Clear Calc 89.7 Estimated GFR > 60 Fasting Glucose 93 Calcium 8.5 D Magnesium 1.9 Total Bilirubin 1.2 H Direct Bilirubin 0.7 H AST 97 H ALT 210 H Alkaline Phosphatase 116 D Total Protein 5.3 L Albumin 3.2 L Procedures Date of Service Date of Service: 05/26/22 Progress Note: A&P Assessment and plan (1) Gallstone pancreatitis: Status: Acute Assessment and Plan: bilirubin down likely to have passed stone through CBD she was unable to tolerated MRI WBC better trend LFTs she wants to proceed with cholecystectomy she has previous laparotomy for colovesical fistula - anticipate a lot of adhesions Time Spent With Patient Time: Total time spent is greater than 50% in coordination of care (as documented) at patient's floor/unit and/or counseling patient: Quality Stroke Does the patient have a stroke diagnosis?: No VTE Prior VTE?: No VTE Risk Level:: Medical - moderate - high VTE Device Contraindication: Treatment Not Indicated VTE Drug Contraindication: N/A - Med Ordered
[2022-05-26 09:34] LABS: Lipase 197 U/L (8-78)
--- NOTE | 2022-05-26 09:54 | HO.PM.IMPN ---
Subjective Subjective Date of Service: 05/26/22 Interval History: cc: abd pain interval history:overall improved, not intersted in more than clears Cardiovascular Cardiovascular: Reports no additional cardiovascular complaints Respiratory Respiratory: Reports no additional respiratory complaints Physical Exam Vital Signs: Vital Signs: Last Vital Signs Temp 98.6 F 05/26/22 08:00 Pulse 85 05/26/22 08:00 Resp 16 05/26/22 08:00 BP 134/61 05/26/22 08:00 Pulse Ox 93 05/26/22 08:00 O2 Del Method 05/26/22 08:00 BMI result Body Mass Index 48.8 General: AO X 3, no acute distress Resp: CTA bilateral, no accessory muscles used CVS: S1,S2,RRR GI: soft, midlly tender, non distended Neuro: motor grossly intact, alert Psych: appropriate affect, appropriate insight Objective Data Active Medications Enoxaparin Sodium (Enoxaparin Sodium 40 Mg/0.4 Ml Syringe) 40 mg SUBCUT Q24H [facility] Last Admin: 05/26/22 07:50 Dose: 40 mg Documented By: CALEB Escitalopram Oxalate (Escitalopram Oxalate 10 Mg Tablet) 10 mg PO DAILY [facility] Last Admin: 05/26/22 07:50 Dose: 10 mg Documented By: CALEB Hydromorphone HCl (Hydromorphone Hcl 1 Mg/Ml Syringe) 0.5 mg IVPUSH Q4H PRN; Protocol PRN Reason: Pain, Severe (Pain Scale 7-10) Last Admin: 05/25/22 21:17 Dose: 0.5 mg Documented By: CURTIS Lactated Ringer's (Lr) 1,000 mls @ 150 mls/hr IVCONT .Q6H40M [facility] Last Admin: 05/26/22 04:28 Dose: 150 mls/hr Documented By: CURTIS Metoprolol Succinate (Metoprolol Succinate Er 100 Mg Tab.Er.24h) 100 mg PO DAILY [facility]; Protocol Last Admin: 05/26/22 07:50 Dose: 100 mg Documented By: CALEB Pharmacy Consult (Consult Rx Perform Med Rec) 1 each MISCELLANE ONCE PRN PRN Reason: Consult order Labs CBC & Chem 7: 05/26/22 05:04 05/26/22 05:04 Labs: Laboratory Results - last 24 hr 05/26/22 05/26/22 05:04 05:04 MCV 94.7 MCH 29.9 MCHC 31.6 RDW 13.2 Plt Count 228 MPV 10.3 Absolute Nucleated RBC 0.000 Nucleated RBC % (auto) 0.0 Anion Gap 13 Estim Creat Clear Calc 89.7 Estimated GFR > 60 Fasting Glucose 93 Calcium 8.5 D Magnesium 1.9 Total Bilirubin 1.2 H Direct Bilirubin 0.7 H AST 97 H ALT 210 H Alkaline Phosphatase 116 D Total Protein 5.3 L Albumin 3.2 L Lipase 197 H Assessment and Plan (1) Gallstone pancreatitis: Status: Acute Plan 72F PMH CAD s/p 3 stents, DM2-diet controlled, HTN, HLD, morbid obesity, presented with abdominal pain acute pancreatitis, likely gallstone symptoms improved, lfts improved, likely passed stone unable to tolerate mri, follow up US abd continue iv hydration, iv dilaudid, clear liquids (advance as tolerated, currently wants to stay on clears) GI and surgery following monitor LFTs CAD asa hold statin HTN toprol DM 2 diet controlled morbid obesity weight loss recommended full code dvt prophylaxis - lovenox reason for continued hospitalization:plan for cholecystectomy prior to discharge Quality Stroke Does the patient have a stroke diagnosis?: No VTE Prior VTE?: No VTE Risk Level:: Medical - moderate - high VTE Device Contraindication: Treatment Not Indicated VTE Drug Contraindication: N/A - Med Ordered
--- NOTE | 2022-05-26 10:26 | PM.GIPN ---
Subjective Subjective Date of Service: 05/26/22 Interval History: feels better today c/o some reflux Critical Care Time (minutes): 0 Physical Exam Vital Signs: Vital Signs: Last Vital Signs Temp 98.6 F 05/26/22 08:00 Pulse 85 05/26/22 08:00 Resp 16 05/26/22 08:00 BP 134/61 05/26/22 08:00 Pulse Ox 93 05/26/22 08:00 O2 Del Method 05/26/22 08:00 BMI result Body Mass Index 48.8 GI: Other: abdomen is soft and nontender Objective Data Labs CBC & Chem 7: 05/26/22 05:04 05/26/22 05:04 Labs: Laboratory Results - last 24 hr 05/26/22 05/26/22 05:04 05:04 WBC 13.2 H RBC 3.58 L Hgb 10.7 L Hct 33.9 L MCV 94.7 MCH 29.9 MCHC 31.6 RDW 13.2 Plt Count 228 MPV 10.3 Absolute Nucleated RBC 0.000 Nucleated RBC % (auto) 0.0 Sodium 138 Potassium 3.7 Chloride 101 Carbon Dioxide 28 Anion Gap 13 BUN 17 H Creatinine 0.65 Estim Creat Clear Calc 89.7 Estimated GFR > 60 Fasting Glucose 93 Calcium 8.5 D Magnesium 1.9 Total Bilirubin 1.2 H Direct Bilirubin 0.7 H AST 97 H ALT 210 H Alkaline Phosphatase 116 D Total Protein 5.3 L Albumin 3.2 L Lipase 197 H Procedures Date of Service Date of Service: 05/26/22 Progress Note: A&P Assessment and plan (1) Gallstone pancreatitis: Status: Acute Assessment and Plan: lfts, lipase better cbd nl on us advance diet omeprazole for reflux Time Spent With Patient Time: Total time spent is greater than 50% in coordination of care (as documented) at patient's floor/unit and/or counseling patient: Quality Stroke Does the patient have a stroke diagnosis?: No VTE Prior VTE?: No VTE Risk Level:: Medical - moderate - high VTE Device Contraindication: Treatment Not Indicated VTE Drug Contraindication: N/A - Med Ordered
[2022-05-26] MEDS: Omeprazole 20 MG CAPSULE.DR PO (11:15)
[2022-05-26 11:17] VITALS: BP 123/58; PULSE 80; RESP 16; TEMP 36.9; O2SAT 94
--- NOTE | 2022-05-26 13:33 | MHC.CM.PN ---
PATIENT LIVES IN AN APARTMENT ATTACHED TO HER DAUGHTER'S HOME. DAUGHTER IS A HCP (ON FILE AND VERIFIED) SHE WALKS INDEPENDENTLY IS LEGALLY BLIND SO NO LONGER DRIVES. SHE IS COVID VACCINATED PATIENT TELLS T/W THAT DOCTORS ARE GOING TO MONITOR HER LEVELS AND SHE MAY OR MAY NOT GO THE O.R[facility] ON SUNDAY SHE IS HOPING NOT TO HAVE TO AND WANTS TO RETURN HOME NO SERVICES. DAUGHTER WILL TRANSPORT AT THE TIME IMM 05/26 IN CHART
[2022-05-26 16:00] VITALS: BP 149/67; PULSE 84; RESP 16; TEMP 36.3; O2SAT 95
--- NOTE | 2022-05-26 18:36 | PC.NURSE ---
pt is feeling nauseous and bloated to upper abdomen , stated that she feels very full after she had small portion of her dinner.pt encouraged to ambulate to help with the bloating. pt stated that she passed some flatus but still feeling nauseous . message was sent to DR. Shea
[2022-05-26 20:00] VITALS: BP 161/68; PULSE 83; RESP 16; TEMP 36.6; O2SAT 94
[2022-05-26] MEDS: ondansetron HCL 4 MG/2 ML VIAL IVPUSH (20:33)
[2022-05-27] VITALS (7 sets, daily range): BP systolic 143–174; BP diastolic 65–73; PULSE 70–81; RESP 16–18; TEMP 36.1–37.2; O2SAT 92–95
--- NOTE | 2022-05-27 00:34 | PC.NURSE ---
PT BP 161/68, MD Kingsley notified, no new orders
[2022-05-27] MEDS: Lactated Ringers 1,000 ML 150 ML IVCONT ×2 (03:24→08:23)
[2022-05-27] MEDS: Omeprazole 20 MG CAPSULE.DR PO (05:47)
[2022-05-27 06:30] LABS: Hematocrit 32.7 % (37.0-47.0); Hemoglobin 10.5 g/dl (12.0-16.0); Mean Corpuscular HGB Conc 32.1 g/dl (31.0-35.0); Mean Corpuscular Hemoglobin 29.7 pg (27.0-33.0); Mean Corpuscular Volume 92.6 fL (80.0-98.0); Mean Platelet Volume 10.2 fL (9.4-12.3); Platelet Count 221 X10*3/uL (160-400); Red Blood Count 3.53 X10*6/uL (4.20-5.50); White Blood Count 11.6 X10*3/uL (4.8-10.8)
[2022-05-27 06:33] LABS: Alanine Aminotransferase 129 U/L (0-31); Alkaline Phosphatase 92 U/L (39-117); Anion Gap 13 (12-20); Aspartate Amino Transferase 37 U/L (5-31); Bilirubin Direct 0.5 mg/dL (0.0-0.5); Blood Urea Nitrogen 13 mg/dL (9-16); Calcium 8.3 mg/dL (8.4-10.2); Carbon Dioxide 27 mmol/L (22-29); Chloride 102 mmol/L (96-108); Creatinine Clr Calc Pharmacy 97.2; Estimated Glomerular Filt Rate > 60; Glucose Fasting 114 mg/dL (60-99); Potassium 3.8 mmol/L (3.3-5.1); Sodium 138 mmol/L (135-145); Total Protein 5.1 g/dL (6.5-8.0)
[2022-05-27] MEDS: Escitalopram Oxalate 10 MG TABLET PO (08:19)
[2022-05-27] MEDS: Enoxaparin Sodium 40 MG/0.4 ML SYRINGE SUBCUT (08:19)
[2022-05-27] MEDS: Metoprolol Succinate ER 100 MG TAB.ER.24H PO (08:19)
[2022-05-27] MEDS: lisinopriL 10 MG TABLET PO (09:02)
--- NOTE | 2022-05-27 09:41 | PM.PNGS ---
Subjective Subjective Date of Service: 05/27/22 Interval history: says she felt bloated yesterday had some nausea as well better this morning taking some regular diet denies pain Physical Exam Vital Signs: Vital Signs: Last Vital Signs Temp 97.5 F 05/27/22 08:00 Pulse 78 05/27/22 08:00 Resp 17 05/27/22 08:00 BP 143/65 H 05/27/22 08:00 Pulse Ox 95 05/27/22 08:00 O2 Del Method 05/27/22 08:00 FiO2 95 05/27/22 00:00 BMI result Body Mass Index 48.8 Const: General: comfortable and no acute distress Eyes: Sclerae: sclerae normal Resp: Effort & Inspection: normal respiratory effort Cardio: Rate: regular rate GI: Palpation (GI): Soft to palpation, not firm, nontender and no guarding Objective Data Active Medications Enoxaparin Sodium (Enoxaparin Sodium 40 Mg/0.4 Ml Syringe) 40 mg SUBCUT Q24H [facility] Last Admin: 05/27/22 08:19 Dose: 40 mg Documented By: ABDULLAHI Escitalopram Oxalate (Escitalopram Oxalate 10 Mg Tablet) 10 mg PO DAILY [facility] Last Admin: 05/27/22 08:19 Dose: 10 mg Documented By: ABDULLAHI Hydromorphone HCl (Hydromorphone Hcl 1 Mg/Ml Syringe) 0.5 mg IVPUSH Q4H PRN; Protocol PRN Reason: Pain, Severe (Pain Scale 7-10) Last Admin: 05/25/22 21:17 Dose: 0.5 mg Documented By: CURTIS Lisinopril (Lisinopril 10 Mg Tablet) 10 mg PO DAILY [facility]; Protocol Last Admin: 05/27/22 09:02 Dose: 10 mg Documented By: ABDULLAHI Metoprolol Succinate (Metoprolol Succinate Er 100 Mg Tab.Er.24h) 100 mg PO DAILY [facility]; Protocol Last Admin: 05/27/22 08:19 Dose: 100 mg Documented By: ABDULLAHI Omeprazole (Omeprazole 20 Mg Capsule.Dr) 20 mg PO DAILY@0630 [facility] Last Admin: 05/27/22 05:47 Dose: 20 mg Documented By: DAMIAN Ondansetron HCl (Ondansetron Hcl 4 Mg/2 Ml Vial) 4 mg IVPUSH Q8H PRN PRN Reason: Nausea and Vomiting Last Admin: 05/26/22 20:33 Dose: 4 mg Documented By: DAMIAN Pharmacy Consult (Consult Rx Perform Med Rec) 1 each MISCELLANE ONCE PRN PRN Reason: Consult order Labs CBC & Chem 7: 05/27/22 05:11 05/27/22 05:11 Labs: Laboratory Results - last 24 hr 05/27/22 05/27/22 05:11 05:11 MCV 92.6 MCH 29.7 MCHC 32.1 RDW 13.0 Plt Count 221 MPV 10.2 Absolute Nucleated RBC 0.000 Nucleated RBC % (auto) 0.0 Anion Gap 13 Estim Creat Clear Calc 97.2 Estimated GFR > 60 Fasting Glucose 114 H Calcium 8.3 L Total Bilirubin 1.0 Direct Bilirubin 0.5 AST 37 H ALT 129 H Alkaline Phosphatase 92 Total Protein 5.1 L Albumin 3.0 L Procedures Date of Service Date of Service: 05/27/22 Progress Note: A&P Assessment and plan (1) Gallstone pancreatitis: Status: Acute Assessment and Plan: also had elevated bilirubin likely to have passed gallstone LFTs now normal she looks well continue to trend LFTs I have discussed with her doing an MRCP with sedation - she says she is that she does not want to try this because of phobia she wants to have her cholecystectomy done as an inpatient - likely Sunday or Sunday Time Spent With Patient Time: Total time spent is greater than 50% in coordination of care (as documented) at patient's floor/unit and/or counseling patient: Quality Stroke Does the patient have a stroke diagnosis?: No VTE Prior VTE?: No VTE Risk Level:: Medical - moderate - high VTE Device Contraindication: Treatment Not Indicated VTE Drug Contraindication: N/A - Med Ordered
--- NOTE | 2022-05-27 10:54 | HO.PM.IMPN ---
Subjective Subjective Date of Service: 05/27/22 Interval History: cc: abd pain interval history:overall improved, starting solids doing okay Cardiovascular Cardiovascular: Reports no additional cardiovascular complaints Respiratory Respiratory: Reports no additional respiratory complaints Physical Exam Vital Signs: Vital Signs: Last Vital Signs Temp 97.5 F 05/27/22 08:00 Pulse 78 05/27/22 08:00 Resp 17 05/27/22 08:00 BP 143/65 H 05/27/22 08:00 Pulse Ox 95 05/27/22 08:00 O2 Del Method 05/27/22 08:00 FiO2 95 05/27/22 00:00 BMI result Body Mass Index 48.8 Const: General: comfortable and no acute distress Eyes: Sclerae: sclerae normal Resp: Effort & Inspection: normal respiratory effort Cardio: Rate: regular rate GI: Palpation (GI): Soft to palpation, not firm, nontender and no guarding Objective Data Active Medications Enoxaparin Sodium (Enoxaparin Sodium 40 Mg/0.4 Ml Syringe) 40 mg SUBCUT Q24H [facility] Last Admin: 05/27/22 08:19 Dose: 40 mg Documented By: ABDULLAHI Escitalopram Oxalate (Escitalopram Oxalate 10 Mg Tablet) 10 mg PO DAILY [facility] Last Admin: 05/27/22 08:19 Dose: 10 mg Documented By: ABDULLAHI Hydromorphone HCl (Hydromorphone Hcl 1 Mg/Ml Syringe) 0.5 mg IVPUSH Q4H PRN; Protocol PRN Reason: Pain, Severe (Pain Scale 7-10) Last Admin: 05/25/22 21:17 Dose: 0.5 mg Documented By: CURTIS Lisinopril (Lisinopril 10 Mg Tablet) 10 mg PO DAILY [facility]; Protocol Last Admin: 05/27/22 09:02 Dose: 10 mg Documented By: ABDULLAHI Metoprolol Succinate (Metoprolol Succinate Er 100 Mg Tab.Er.24h) 100 mg PO DAILY [facility]; Protocol Last Admin: 05/27/22 08:19 Dose: 100 mg Documented By: ABDULLAHI Omeprazole (Omeprazole 20 Mg Capsule.Dr) 20 mg PO DAILY@0630 [facility] Last Admin: 05/27/22 05:47 Dose: 20 mg Documented By: DAMIAN Ondansetron HCl (Ondansetron Hcl 4 Mg/2 Ml Vial) 4 mg IVPUSH Q8H PRN PRN Reason: Nausea and Vomiting Last Admin: 05/26/22 20:33 Dose: 4 mg Documented By: DAMIAN Pharmacy Consult (Consult Rx Perform Med Rec) 1 each MISCELLANE ONCE PRN PRN Reason: Consult order Labs CBC & Chem 7: 05/27/22 05:11 05/27/22 05:11 Labs: Laboratory Results - last 24 hr 05/27/22 05/27/22 05:11 05:11 MCV 92.6 MCH 29.7 MCHC 32.1 RDW 13.0 Plt Count 221 MPV 10.2 Absolute Nucleated RBC 0.000 Nucleated RBC % (auto) 0.0 Anion Gap 13 Estim Creat Clear Calc 97.2 Estimated GFR > 60 Fasting Glucose 114 H Calcium 8.3 L Total Bilirubin 1.0 Direct Bilirubin 0.5 AST 37 H ALT 129 H Alkaline Phosphatase 92 Total Protein 5.1 L Albumin 3.0 L Assessment and Plan (1) Gallstone pancreatitis: Status: Acute Plan 72F PMH CAD s/p 3 stents, DM2-diet controlled, HTN, HLD, morbid obesity, presented with abdominal pain acute pancreatitis, likely gallstone symptoms improved, lfts improved, likely passed stone advanced to solids GI and surgery following plan for cholecystectomy early next week CAD asa hold statin HTN toprol DM 2 diet controlled morbid obesity weight loss recommended full code dvt prophylaxis - lovenox reason for continued hospitalization:plan for cholecystectomy prior to discharge Quality Stroke Does the patient have a stroke diagnosis?: No VTE Prior VTE?: No VTE Risk Level:: Medical - moderate - high VTE Device Contraindication: Treatment Not Indicated VTE Drug Contraindication: N/A - Med Ordered
[2022-05-27] MEDS: ondansetron HCL 4 MG/2 ML VIAL IVPUSH (20:42)
[2022-05-28 03:34] VITALS: BP 120/58; PULSE 78; RESP 16; TEMP 36.6; O2SAT 94
[2022-05-28] MEDS: Omeprazole 20 MG CAPSULE.DR PO (05:13)
[2022-05-28 07:59] VITALS: BP 139/63; PULSE 77; RESP 17; TEMP 37; O2SAT 95
[2022-05-28] MEDS: lisinopriL 10 MG TABLET PO (08:29)
[2022-05-28] MEDS: Escitalopram Oxalate 10 MG TABLET PO (08:29)
[2022-05-28] MEDS: Metoprolol Succinate ER 100 MG TAB.ER.24H PO (08:29)
[2022-05-28] MEDS: Enoxaparin Sodium 40 MG/0.4 ML SYRINGE SUBCUT (08:30)
--- NOTE | 2022-05-28 10:14 | HO.PM.IMPN ---
Subjective Subjective Date of Service: 05/28/22 Interval History: cc: abd pain interval history:overall improved Cardiovascular Cardiovascular: Reports no additional cardiovascular complaints Respiratory Respiratory: Reports no additional respiratory complaints Physical Exam Vital Signs: Vital Signs: Last Vital Signs Temp 98.6 F 05/28/22 07:59 Pulse 77 05/28/22 07:59 Resp 17 05/28/22 07:59 BP 139/63 05/28/22 07:59 Pulse Ox 95 05/28/22 07:59 O2 Del Method 05/28/22 07:59 FiO2 95 05/27/22 00:00 BMI result Body Mass Index 48.8 Const: General: comfortable and no acute distress Eyes: Sclerae: sclerae normal Resp: Effort & Inspection: normal respiratory effort Cardio: Rate: regular rate GI: Palpation (GI): Soft to palpation, not firm, nontender and no guarding Objective Data Active Medications Enoxaparin Sodium (Enoxaparin Sodium 40 Mg/0.4 Ml Syringe) 40 mg SUBCUT Q24H [facility] Last Admin: 05/28/22 08:30 Dose: 40 mg Documented By: ABDULLAHI Escitalopram Oxalate (Escitalopram Oxalate 10 Mg Tablet) 10 mg PO DAILY [facility] Last Admin: 05/28/22 08:29 Dose: 10 mg Documented By: ABDULLAHI Hydromorphone HCl (Hydromorphone Hcl 1 Mg/Ml Syringe) 0.5 mg IVPUSH Q4H PRN; Protocol PRN Reason: Pain, Severe (Pain Scale 7-10) Last Admin: 05/25/22 21:17 Dose: 0.5 mg Documented By: MITALIORALWilfredo Lisinopril (Lisinopril 10 Mg Tablet) 10 mg PO DAILY [facility]; Protocol Last Admin: 05/28/22 08:29 Dose: 10 mg Documented By: ABDULLAHI Metoprolol Succinate (Metoprolol Succinate Er 100 Mg Tab.Er.24h) 100 mg PO DAILY [facility]; Protocol Last Admin: 05/28/22 08:29 Dose: 100 mg Documented By: ABDULLAHI Omeprazole (Omeprazole 20 Mg Capsule.Dr) 20 mg PO DAILY@0630 [facility] Last Admin: 05/28/22 05:13 Dose: 20 mg Documented By: DAMIAN Ondansetron HCl (Ondansetron Hcl 4 Mg/2 Ml Vial) 4 mg IVPUSH Q8H PRN PRN Reason: Nausea and Vomiting Last Admin: 05/27/22 20:42 Dose: 4 mg Documented By: DAMIAN Pharmacy Consult (Consult Rx Perform Med Rec) 1 each MISCELLANE ONCE PRN PRN Reason: Consult order Labs CBC & Chem 7: 05/27/22 05:11 05/27/22 05:11 Assessment and Plan (1) Gallstone pancreatitis: Status: Acute Plan 72F PMH CAD s/p 3 stents, DM2-diet controlled, HTN, HLD, morbid obesity, presented with abdominal pain acute pancreatitis, likely gallstone symptoms improved, lfts improved, likely passed stone advanced to solids - tolerating GI and surgery following plan for cholecystectomy early thisweek CAD asa hold statin HTN toprol DM 2 diet controlled morbid obesity weight loss recommended full code dvt prophylaxis - lovenox reason for continued hospitalization:plan for cholecystectomy prior to discharge Quality Stroke Does the patient have a stroke diagnosis?: No VTE Prior VTE?: No VTE Risk Level:: Medical - moderate - high VTE Device Contraindication: Treatment Not Indicated VTE Drug Contraindication: N/A - Med Ordered
--- NOTE | 2022-05-28 10:18 | PM.PNGS ---
Subjective Subjective Date of Service: 05/29/22 Interval history: feels well this morning had good PO intake last night denies abdl pain Physical Exam Vital Signs: Vital Signs: Last Vital Signs Temp 98.6 F 05/28/22 07:59 Pulse 77 05/28/22 07:59 Resp 17 05/28/22 07:59 BP 139/63 05/28/22 07:59 Pulse Ox 95 05/28/22 07:59 O2 Del Method 05/28/22 07:59 FiO2 95 05/27/22 00:00 BMI result Body Mass Index 48.8 Const: General: comfortable and no acute distress Resp: Effort & Inspection: normal respiratory effort Cardio: Rate: regular rate GI: Palpation (GI): Soft to palpation, not firm and nontender Objective Data Active Medications Enoxaparin Sodium (Enoxaparin Sodium 40 Mg/0.4 Ml Syringe) 40 mg SUBCUT Q24H [facility] Last Admin: 05/28/22 08:30 Dose: 40 mg Documented By: ABDULLAHI Escitalopram Oxalate (Escitalopram Oxalate 10 Mg Tablet) 10 mg PO DAILY [facility] Last Admin: 05/28/22 08:29 Dose: 10 mg Documented By: ABDULLAHI Hydromorphone HCl (Hydromorphone Hcl 1 Mg/Ml Syringe) 0.5 mg IVPUSH Q4H PRN; Protocol PRN Reason: Pain, Severe (Pain Scale 7-10) Last Admin: 05/25/22 21:17 Dose: 0.5 mg Documented By: MITALIORALWilfredo Lisinopril (Lisinopril 10 Mg Tablet) 10 mg PO DAILY [facility]; Protocol Last Admin: 05/28/22 08:29 Dose: 10 mg Documented By: ABDULLAHI Metoprolol Succinate (Metoprolol Succinate Er 100 Mg Tab.Er.24h) 100 mg PO DAILY [facility]; Protocol Last Admin: 05/28/22 08:29 Dose: 100 mg Documented By: ABDULLAHI Omeprazole (Omeprazole 20 Mg Capsule.Dr) 20 mg PO DAILY@0630 [facility] Last Admin: 05/28/22 05:13 Dose: 20 mg Documented By: DAMIAN Ondansetron HCl (Ondansetron Hcl 4 Mg/2 Ml Vial) 4 mg IVPUSH Q8H PRN PRN Reason: Nausea and Vomiting Last Admin: 05/27/22 20:42 Dose: 4 mg Documented By: DAMIAN Pharmacy Consult (Consult Rx Perform Med Rec) 1 each MISCELLANE ONCE PRN PRN Reason: Consult order Labs CBC & Chem 7: 05/29/22 05:14 05/29/22 05:14 Procedures Date of Service Date of Service: 05/28/22 Progress Note: A&P Assessment and plan (1) Gallstone pancreatitis: Status: Acute Assessment and Plan: symptoms appear resolved likely to have passed gallstone repeat these today if LFTs remain low, plan cholecystectomy likely tomorrow she understands plan well Time Spent With Patient Time: Total time spent is greater than 50% in coordination of care (as documented) at patient's floor/unit and/or counseling patient: Quality Stroke Does the patient have a stroke diagnosis?: No VTE Prior VTE?: No VTE Risk Level:: Medical - moderate - high VTE Device Contraindication: Treatment Not Indicated VTE Drug Contraindication: N/A - Med Ordered
[2022-05-28 11:11] LABS: Alanine Aminotransferase 95 U/L (0-31); Albumin Level 3.6 g/dL (3.5-5.0); Alkaline Phosphatase 102 U/L (39-117); Aspartate Amino Transferase 22 U/L (5-31); Bilirubin Direct 0.5 mg/dL (0.0-0.5); Bilirubin Total 0.9 mg/dL (0.0-1.0)
[2022-05-28 11:17] VITALS: BP 135/60; PULSE 68; RESP 16; TEMP 36.4; O2SAT 94
[2022-05-28] MEDS: ondansetron HCL 4 MG/2 ML VIAL IVPUSH ×2 (13:10→21:10)
[2022-05-28 15:30] VITALS: BP 167/72; PULSE 73; RESP 16; TEMP 36.4; O2SAT 96
[2022-05-28 19:37] VITALS: BP 148/64; PULSE 81; RESP 18; TEMP 37.2; O2SAT 93
[2022-05-28] MEDS: LORazepam 0.5 MG TABLET PO (21:06)
[2022-05-29] VITALS (17 sets, daily range): BP systolic 97–190; BP diastolic 58–93; PULSE 71–82; RESP 16–24; TEMP 36–37; O2SAT 92–100
[2022-05-29 06:22] LABS: Hematocrit 32.8 % (37.0-47.0); Hemoglobin 10.5 g/dl (12.0-16.0); Mean Corpuscular Hemoglobin 29.9 pg (27.0-33.0); Mean Corpuscular Volume 93.4 fL (80.0-98.0); Mean Platelet Volume 10.2 fL (9.4-12.3); Platelet Count 241 X10*3/uL (160-400); Red Blood Count 3.51 X10*6/uL (4.20-5.50); Red Cell Distribution Width 12.9 % (11.0-16.0); White Blood Count 12.1 X10*3/uL (4.8-10.8)
[2022-05-29 06:40] LABS: Anion Gap 12 (12-20); Blood Urea Nitrogen 12 mg/dL (9-16); Calcium 8.4 mg/dL (8.4-10.2); Carbon Dioxide 31 mmol/L (22-29); Chloride 100 mmol/L (96-108); Creatinine Clr Calc Pharmacy 88.3; Estimated Glomerular Filt Rate > 60; Glucose Fasting 124 mg/dL (60-99); Potassium 3.8 mmol/L (3.3-5.1); Sodium 139 mmol/L (135-145)
[2022-05-29 07:59] LABS: Alanine Aminotransferase 61 U/L (0-31); Alkaline Phosphatase 76 U/L (39-117); Aspartate Amino Transferase 15 U/L (5-31); Bilirubin Direct 0.3 mg/dL (0.0-0.5); Bilirubin Total 0.7 mg/dL (0.0-1.0); Total Protein 5.2 g/dL (6.5-8.0)
[2022-05-29] MEDS: lisinopriL 10 MG TABLET PO (08:21)
[2022-05-29] MEDS: Escitalopram Oxalate 10 MG TABLET PO (08:22)
[2022-05-29] MEDS: Metoprolol Succinate ER 100 MG TAB.ER.24H PO (08:22)
--- NOTE | 2022-05-29 09:56 | P.PNIM_ITS ---
Subjective Subjective Date of Service: 05/29/22 Interval History: cc: abd pain interval history:overall improved Cardiovascular Cardiovascular: Reports no additional cardiovascular complaints Respiratory Respiratory: Reports no additional respiratory complaints Physical Exam Vital Signs: Vital Signs: Last Vital Signs Temp 98.2 F 05/29/22 07:17 Pulse 79 05/29/22 07:17 Resp 18 05/29/22 07:17 BP 133/67 05/29/22 07:17 Pulse Ox 95 05/29/22 07:17 O2 Del Method 05/29/22 07:17 FiO2 95 05/27/22 00:00 BMI result Body Mass Index 48.8 Const: General: comfortable and no acute distress Resp: Effort & Inspection: normal respiratory effort Cardio: Rate: regular rate GI: Palpation (GI): Soft to palpation, not firm and nontender Objective Data Active Medications Enoxaparin Sodium (Enoxaparin Sodium 40 Mg/0.4 Ml Syringe) 40 mg SUBCUT Q24H [facility] Last Admin: 05/29/22 08:19 Dose: Not Given Documented By: CALEB Non-Admin Reason: pre op Escitalopram Oxalate (Escitalopram Oxalate 10 Mg Tablet) 10 mg PO DAILY [facility] Last Admin: 05/29/22 08:22 Dose: 10 mg Documented By: CALEB Hydromorphone HCl (Hydromorphone Hcl 1 Mg/Ml Syringe) 0.5 mg IVPUSH Q4H PRN; Protocol PRN Reason: Pain, Severe (Pain Scale 7-10) Last Admin: 05/25/22 21:17 Dose: 0.5 mg Documented By: OZORALWilfredo Lisinopril (Lisinopril 10 Mg Tablet) 10 mg PO DAILY [facility]; Protocol Last Admin: 05/29/22 08:21 Dose: 10 mg Documented By: CALEB Lorazepam (Lorazepam 0.5 Mg Tablet) 0.5 mg PO BEDTIME PRN PRN Reason: Anxiety Last Admin: 05/28/22 21:06 Dose: 0.5 mg Documented By: TEQUILA Metoprolol Succinate (Metoprolol Succinate Er 100 Mg Tab.Er.24h) 100 mg PO DAILY [facility]; Protocol Last Admin: 05/29/22 08:22 Dose: 100 mg Documented By: CALEB Omeprazole (Omeprazole 20 Mg Capsule.) 20 mg PO DAILY@0630 [facility] Last Admin: 05/29/22 05:35 Dose: Not Given Documented By: GREG Non-Admin Reason: NPO Ondansetron HCl (Ondansetron Hcl 4 Mg/2 Ml Vial) 4 mg IVPUSH Q8H PRN PRN Reason: Nausea and Vomiting Last Admin: 05/28/22 21:10 Dose: 4 mg Documented By: TEQUILA Pharmacy Consult (Consult Rx Perform Med Rec) 1 each MISCELLANE ONCE PRN PRN Reason: Consult order Labs CBC & Chem 7: 05/29/22 05:14 05/29/22 05:14 Labs: Laboratory Results - last 24 hr 05/28/22 05/29/22 05/29/22 10:27 05:14 05:14 MCV 93.4 MCH 29.9 MCHC 32.0 RDW 12.9 Plt Count 241 MPV 10.2 Absolute Nucleated RBC 0.000 Nucleated RBC % (auto) 0.0 Anion Gap 12 Estim Creat Clear Calc 88.3 Estimated GFR > 60 Fasting Glucose 124 H Calcium 8.4 Total Bilirubin 0.9 0.7 Direct Bilirubin 0.5 0.3 AST 22 D 15 ALT 95 H 61 H Alkaline Phosphatase 102 76 Total Protein 6.0 L 5.2 L Albumin 3.6 3.0 L Assessment and Plan (1) Gallstone pancreatitis: Status: Acute Plan 72F PMH CAD s/p 3 stents, DM2-diet controlled, HTN, HLD, morbid obesity, presented with abdominal pain acute pancreatitis, likely gallstone symptoms improved, lfts improved, likely passed stone advanced to solids - tolerating GI and surgery following plan for cholecystectomy today 05/29/22 CAD asa hold statin HTN toprol DM 2 diet controlled morbid obesity weight loss recommended full code dvt prophylaxis - lovenox reason for continued hospitalization:plan for cholecystectomy prior to discharge Quality Stroke Does the patient have a stroke diagnosis?: No VTE Prior VTE?: No VTE Risk Level:: Medical - moderate - high VTE Device Contraindication: Treatment Not Indicated VTE Drug Contraindication: N/A - Med Ordered
[2022-05-29 09:59] LABS: Glucose, Whole Blood 123 mg/dL (60-115)
--- NOTE | 2022-05-29 10:34 | PM.EVENT ---
Event Note Date of Service: 05/29/22 Event Note: the patient wants to proceed with laparoscopic cholecystectomy as an inpatient. I explained to her the technique of laparoscopic-been possible open cholecystectomy. Explained the risks including but not limited to bleeding, infections, injury to the bowel, liver, bile duct, bile leak, retained stones, inherent risks of anesthesia, as well as the benefits and alternatives she has had multiple abdominal surgeries in the past so I told her that there was high likelihood of converting to put on open cholecystectomy she understands this and has given consent her LFTs have been normal after admission
--- NOTE | 2022-05-29 10:48 | HO.ANESPROP2 ---
[facility] Active Problems Active Problems: All Active Problems (Updated 05/25/22 @ 05:58 by Viet Garcia MD) Gallstone pancreatitis (Acute) Type 2 diabetes mellitus without complication, without long-term current use of insulin (Acute) Macular degeneration (Acute) Degenerative joint disease of knee, left (Acute) CAD (coronary artery disease) (Acute) Vitamin D deficiency (Acute) Menopause (Acute) Anxiety disorder (Acute) Essential hypertension (Acute) Dyslipidemia (Acute) Past Medical History Medical History Abdominal gas pain Anxiety disorder CAD (coronary artery disease) Degenerative joint disease of knee, left Dyslipidemia Endometrial carcinoma Essential hypertension Macular degeneration Menopause Non-ST elevation myocardial infarction (NSTEMI) Ocular herpes simplex Type 2 diabetes mellitus without complication, without long-term current use of insulin Vitamin D deficiency Family History Family History Father CVD (cardiovascular disease) Mother Hyperlipemia Manic depression Mental illness in member of household Mental health disorder Sister Stroke Manic depression History of mental problems Son Drug addiction Substance use disorder Daughter No problems noted. Family history of problems with anesthesia: No Surgical History Surgical History H/O heart artery stent History of 2 sections History of hysterectomy History of tonsillectomy History of total right knee replacement History of Problems with Anesthesia: No Social History Social History Household Members: Family Housing: Apartment Do you presently have visiting nurse or other home services: No Alcohol intake: never Patient Tobacco Use Status: Never used Tobacco e-Cigarette/Vaping Use: Never Used Advance Directives Date on File: 05/09/22 service: No Current occupational status: retired and disabled Meds Allergies Allergy/AdvReac Type Severity Reaction Status Date / Time adhesive tape Allergy Intermediate BLISTERS/LOCALIZED Verified 05/29/22 09:44 ITCHING codeine [CODEINE] Allergy Intermediate RASH, Verified 05/29/22 09:44 stomach upset [place]-MVT-ObD Reductase AdvReac Intermediate MYALGIAS Verified 05/29/22 09:44 Inhibitor [[id number] REDUCTASE INHIBITOR] Active Medications: Current Medications Enoxaparin Sodium (Enoxaparin Sodium 40 Mg/0.4 Ml Syringe) 40 mg SUBCUT Q24H [facility] Last Admin: 05/29/22 08:19 Dose: Not Given Escitalopram Oxalate (Escitalopram Oxalate 10 Mg Tablet) 10 mg PO DAILY [facility] Last Admin: 05/29/22 08:22 Dose: 10 mg Hydromorphone HCl (Hydromorphone Hcl 1 Mg/Ml Syringe) 0.5 mg IVPUSH Q4H PRN; Protocol PRN Reason: Pain, Severe (Pain Scale 7-10) Last Admin: 05/25/22 21:17 Dose: 0.5 mg Lisinopril (Lisinopril 10 Mg Tablet) 10 mg PO DAILY [facility]; Protocol Last Admin: 05/29/22 08:21 Dose: 10 mg Lorazepam (Lorazepam 0.5 Mg Tablet) 0.5 mg PO BEDTIME PRN PRN Reason: Anxiety Last Admin: 05/28/22 21:06 Dose: 0.5 mg Metoprolol Succinate (Metoprolol Succinate Er 100 Mg Tab.Er.24h) 100 mg PO DAILY [facility]; Protocol Last Admin: 05/29/22 08:22 Dose: 100 mg Omeprazole (Omeprazole 20 Mg Capsule.Dr) 20 mg PO DAILY@0630 [facility] Last Admin: 05/29/22 05:35 Dose: Not Given Ondansetron HCl (Ondansetron Hcl 4 Mg/2 Ml Vial) 4 mg IVPUSH Q8H PRN PRN Reason: Nausea and Vomiting Last Admin: 05/28/22 21:10 Dose: 4 mg Pharmacy Consult (Consult Rx Perform Med Rec) 1 each MISCELLANE ONCE PRN PRN Reason: Consult order Home Medications Medication Instructions Recorded Confirmed Last Taken Type aspirin 81 mg tablet,delayed 81 mg PO DAILY 05/25/22 05/25/22 05/24/22 History release docusate sodium 100 mg tablet 100 mg PO DAILY 05/25/22 05/25/22 05/24/22 History lisinopril 10 mg tablet 10 mg PO DAILY 05/25/22 05/25/22 05/24/22 History lorazepam 0.5 mg tablet 0.5 - 1 mg PO DAILY PRN Anxiety 05/25/22 05/25/22 Unknown History magnesium oxide 400 mg (241.3 mg 400 mg PO DAILY 05/25/22 05/25/22 05/24/22 History magnesium) tablet metoprolol succinate 100 mg 100 mg PO DAILY 05/25/22 05/25/22 05/24/22 History tablet,extended release 24 hr rosuvastatin 5 mg tablet 5 mg PO Q2D 05/25/22 05/25/22 05/23/22 History Exam Exam Date and Time: May 29, 2022 1048 Height,Weight and Vital Signs: Height 5 ft Weight 113.398 kg Last Vital Signs Temp 98.3 F 05/29/22 09:45 Pulse 75 05/29/22 09:45 Resp 16 05/29/22 09:45 BP 161/62 H 05/29/22 09:45 Pulse Ox 95 05/29/22 09:45 O2 Del Method 05/29/22 09:45 FiO2 95 05/27/22 00:00 Pertinent Lab Results Pertinent Lab Results: Laboratory Tests 05/25/22 05/25/22 05/25/22 03:52 03:52 03:53 WBC 15.9 H RBC 4.44 Hgb 13.2 Hct 40.5 MCV 91.2 MCH 29.7 MCHC 32.6 RDW 12.7 Plt Count 271 MPV 9.3 L Immature Gran % (Auto) 0.4 Neut % (Auto) 86.6 H Lymph % (Auto) 6.5 L [place] % (Auto) 6.1 Eos % (Auto) 0.1 Baso % (Auto) 0.3 Lymph # (Auto) 1.0 L [place] # (Auto) 1.0 Eos # (Auto) 0.0 Baso # (Auto) 0.0 Abs Immat Gran (auto) 0.07 H Absolute Neuts (auto) 13.8 H Absolute Nucleated RBC 0.000 Nucleated RBC % (auto) 0.0 PT INR Sodium Potassium Chloride Carbon Dioxide Anion Gap BUN Creatinine Estim Creat Clear Calc Estimated GFR POC Glucose Random Glucose Fasting Glucose Lactic Acid 1.4 Calcium Magnesium Total Bilirubin Direct Bilirubin AST ALT Alkaline Phosphatase Troponin I High Sens Total Protein Albumin Lipase COVID-19 ([facility]) Negative COVID-19 Clin Com See Note 05/25/22 05/25/22 05/25/22 03:53 04:21 04:21 WBC RBC Hgb Hct MCV MCH MCHC RDW Plt Count MPV Immature Gran % (Auto) Neut % (Auto) Lymph % (Auto) [place] % (Auto) Eos % (Auto) Baso % (Auto) Lymph # (Auto) [place] # (Auto) Eos # (Auto) Baso # (Auto) Abs Immat Gran (auto) Absolute Neuts (auto) Absolute Nucleated RBC Nucleated RBC % (auto) PT 12.2 INR 1.1 Sodium 137 Potassium 4.4 Chloride 100 Carbon Dioxide 26 Anion Gap 15 BUN 21 H Creatinine 0.84 Estim Creat Clear Calc 69.4 Estimated GFR > 60 POC Glucose Random Glucose 193 H Fasting Glucose Lactic Acid Calcium 9.2 Magnesium Total Bilirubin 3.5 H Direct Bilirubin AST 255 H ALT 354 H Alkaline Phosphatase 146 H Troponin I High Sens < 3.5 Total Protein 6.7 Albumin 3.8 Lipase 2497 H COVID-19 ([facility]NA) COVID-19 Clin Com 05/25/22 05/26/22 05/26/22 07:07 05:04 05:04 WBC 13.2 H RBC 3.58 L Hgb 10.7 L Hct 33.9 L MCV 94.7 MCH 29.9 MCHC 31.6 RDW 13.2 Plt Count 228 MPV 10.3 Immature Gran % (Auto) Neut % (Auto) Lymph % (Auto) [place] % (Auto) Eos % (Auto) Baso % (Auto) Lymph # (Auto) [place] # (Auto) Eos # (Auto) Baso # (Auto) Abs Immat Gran (auto) Absolute Neuts (auto) Absolute Nucleated RBC 0.000 Nucleated RBC % (auto) 0.0 PT INR Sodium 138 Potassium 3.7 Chloride 101 Carbon Dioxide 28 Anion Gap 13 BUN 17 H Creatinine 0.65 Estim Creat Clear Calc 89.7 Estimated GFR > 60 POC Glucose 137 H Random Glucose Fasting Glucose 93 Lactic Acid Calcium 8.5 D Magnesium 1.9 Total Bilirubin 1.2 H Direct Bilirubin 0.7 H AST 97 H ALT 210 H Alkaline Phosphatase 116 D Troponin I High Sens Total Protein 5.3 L Albumin 3.2 L Lipase 197 H COVID-19 (TANA) COVID-19 Clin Com 05/27/22 05/27/22 05/28/22 05:11 05:11 10:27 WBC 11.6 H RBC 3.53 L Hgb 10.5 L Hct 32.7 L MCV 92.6 MCH 29.7 MCHC 32.1 RDW 13.0 Plt Count 221 MPV 10.2 Immature Gran % (Auto) Neut % (Auto) Lymph % (Auto) [place] % (Auto) Eos % (Auto) Baso % (Auto) Lymph # (Auto) [place] # (Auto) Eos # (Auto) Baso # (Auto) Abs Immat Gran (auto) Absolute Neuts (auto) Absolute Nucleated RBC 0.000 Nucleated RBC % (auto) 0.0 PT INR Sodium 138 Potassium 3.8 Chloride 102 Carbon Dioxide 27 Anion Gap 13 BUN 13 Creatinine 0.60 Estim Creat Clear Calc 97.2 Estimated GFR > 60 POC Glucose Random Glucose Fasting Glucose 114 H Lactic Acid Calcium 8.3 L Magnesium Total Bilirubin 1.0 0.9 Direct Bilirubin 0.5 0.5 AST 37 H 22 D ALT 129 H 95 H Alkaline Phosphatase 92 102 Troponin I High Sens Total Protein 5.1 L 6.0 L Albumin 3.0 L 3.6 Lipase COVID-19 (TANA) COVID-19 [employer] 05/29/22 05/29/22 05/29/22 05:14 05:14 09:55 WBC 12.1 H RBC 3.51 L Hgb 10.5 L Hct 32.8 L MCV 93.4 MCH 29.9 MCHC 32.0 RDW 12.9 Plt Count 241 MPV 10.2 Immature Gran % (Auto) Neut % (Auto) Lymph % (Auto) [place] % (Auto) Eos % (Auto) Baso % (Auto) Lymph # (Auto) [place] # (Auto) Eos # (Auto) Baso # (Auto) Abs Immat Gran (auto) Absolute Neuts (auto) Absolute Nucleated RBC 0.000 Nucleated RBC % (auto) 0.0 PT INR Sodium 139 Potassium 3.8 Chloride 100 Carbon Dioxide 31 H Anion Gap 12 BUN 12 Creatinine 0.66 Estim Creat Clear Calc 88.3 Estimated GFR > 60 POC Glucose 123 H Random Glucose Fasting Glucose 124 H Lactic Acid Calcium 8.4 Magnesium Total Bilirubin 0.7 Direct Bilirubin 0.3 AST 15 ALT 61 H Alkaline Phosphatase 76 Troponin I High Sens Total Protein 5.2 L Albumin 3.0 L Lipase COVID-19 (TANA) COVID-19 Rezee Com Airway Mallampati Class: III TM Dist: >3cm Neck ROM: Full Assessment and Plan Assessment Anesthesia Assessment: Anesthesia Plan Discussed and Chart Reviewed Final Anesthetic Review Family History of Problems with Anesthesia: No History of Problems with Anesthesia: No NPO: Yes ASA Class: III Final Preanesthetic Review: No Changes in Pt Med Stat, Meds/Allgs Chart Reviewed, Consent Obtained/Reviewed and Anes Risks/Benef Reviewed Patient Risk: Intermediate Procedure Risk: Intermediate Anesthetic Plan Anesthetic Plan: GA Disposition: Standard PACU
--- NOTE | 2022-05-29 12:29 | P.OP_ITS ---
Operative Note Operative Note Date of Service: 05/29/22 Narrative: Preop diagnosis: Gallstone pancreatitis Postop diagnosis: 1. Chronic cholecystitis 2. recent gallstone pancreatitis Procedure: Laparoscopic cholecystectomy, lysis of adhesions Surgeon: Juan Medrano MD assistant men's lacrosse coach: BILL Garcia The patient is a 72 year female was admitted because of abdominal pain with elevated lipase, with note of inflammatory changes around the pancreas along with gallstones consistent with gallstone pancreatitis. She had elevated LFTs as well but the bilirubin dropped drastically after her 1st hospital the so it appeared that she had passed a stone. The CT scan did not suggest CBD obstruction. We had set her up for an MRI but she could not tolerate this because of her claustrophobia Since her bilirubin had been normal for the past 3 days, and her lipase had decreased, I explained to her that we can proceed with cholecystectomy. I discussed with the technique of laparoscopic cholecystectomy as well as possible open cholecystectomy to prevent future recurrences. I reviewed with her the risks, benefits, and alternatives. She had given consent. Her daughter Yuliana was involved with the discussion. She was brought to the is operating room and placed supine under general anesthesia via endotracheal tube. The abdomen was prepped and draped in usual sterile fashion. A surgical time-out was done. The patient received Cefotan 2 g IV probably for I made a short supraumbilical incision using blade 15. And this was carried down through the full-thickness of the skin subcutaneous fat down to the fascia. The fascia was incised. The peritoneum was entered and through this incision a Blanca port was introduced. Pneumoperitoneum was introduced to a pressure of 15 minutes hg. From here on the rest of procedure was done under vision with the laparoscoped. Were fortunate that there were no adhesions in the right upper quadrant. Visualization of the abdomen below the on port shows extensive adhesions and he noted that we had to avoid all of these with placement of the other ports. with laparoscopic visualization I inserted a 5/12 mm port in the epigastric area below the subcostal margin through a small stab incision. Two 5 mm ports were introduced through small stab incisions below the subcostal margin along the anterior axilla and the midclavicular line. Graspers were placed through these working ports. The patient was placed in head-up and [id number] position. The gallbladder was seen. This was actually referred with omentum and a lot of fibrous tissue consistent with chronic cholecystitis. I therefore had to use the LigaSure to release this omentum covering this area N2 lyse adherent fibrous tissue as well to expose the fundus. Eventually, we were able to expose the fundus enough to apply the grasper. Was used to retract the gallbladder cephalad. There was note of adhesions anterior wall of the gallbladder which we had to carefully lyse as well with blunt dissection using the [place] dissector. Eventually was able to expose the entire near wall the gallbladder. I could visualize the pouch but there was note of a lot of thick indurated omentum around the neck. I was able to apply grasper on the pouch of the bladder and the gallbladder was retracted in a cephalad and lateral fashion. We to do a lot of careful dissection of thickened and indurated fat surrounding the neck of the gallbladder. We encountered significant oozing because of this indurated fat. this part of the procedure to define the cystic duct took a little longer because of the amount of indurated tissue in this area. Eventually,I was able to visualize what appeared to be the cystic duct along its confluence with the neck of the gallbladder. I was also able to see what appeared to be the cystic artery with a lot of surrounding indurated tissue. This point, I felt that we had achieved a critical view of the hepatocystic triangle. I continued to bluntly dissect the cystic duct as well as the cystic artery with the [place] dissector to expose this and achieve better definition. At 1 point, the cystic artery seemed to have a little tear with note of some bleeding. We therefore had to apply clips on this area which achieved good hemostasis. I reexamined the entire area and appeared that we had a good confirmation of the cystic duct and its confluence with the neck of the gallbladder. I therefore applied clips on the cystic duct with 2 clips being applied distally. The cystic duct was transected between clips with Endo scissors. I did blunt dissection to separate the rest of the gallbladder wall from the liver bed. There was note of significant thickening and induration in this area of the gallbladder wall consistent with chronic cholecystitis so we had to do this slowly. This allowed me to further define the planes of dissection and by doing so I was able to clearly define the rest of the cystic artery as well. I applied clips on the cystic artery and this was divided between clips with Endo scissors as well. I continued to apply traction on this is the gallbladder away from the liver bed. I used the hook electrocautery to gently define a plane of dissection between the gallbladder wall and the liver bed in separate this gallbladder along this plane. We proceeded to do this method of dissection slowly until were able to reach the fundus. The area of dissection examined carefully to make sure that with good him stasis prior to completely the gallbladder. The gallbladder was in completely and was retrieved thro [facility] an endobag through the umbilical incision I reinserted all ports and insufflated. I irrigated as there was some bile from tears in the gallbladder wall due to retraction. I resection other again fluid. I examined the subhepatic space. This appeared to be hemostatic. I applied Surgicel into the area in view of the oozing encountered earlier There was note of significant adhesions just below the umbilicus along with adherent bowel loops but we did not go near this areas There was no evidence of any bowel injury or any bile leak. Once hemostasis was confirmed, I desufflated the port sites. I removed all ports under vision with the laparoscope. The umbilical port was removed last. The fascia of the umbilical incision was closed with [id number] Dexon 0 stitch. Skin closure was achieved on all incisions using Dexon 4-0 subcuticular running sutures. Steri-Strips and dressings were applied. All incisions were infiltrated with Marcaine 0.5% for postop analgesia. The procedure was then completed. The patient tolerated the procedure wellThere were no immediate complications. Initial and final counts of sponges and instruments were correct. Estimated blood loss was about 150 cc. The patient was extubated without difficulty and transferred to the recovery room with stable vital signs.
[2022-05-29] MEDS: ondansetron HCL 4 MG/2 ML VIAL IVPUSH ×2 (12:57→16:48)
[2022-05-29] MEDS: Scopolamine 1.5 MG PATCH.TD.3 EAR-BEHIND (13:07)
--- NOTE | 2022-05-29 16:28 | PM.EVENT ---
Event Note Date of Service: 05/29/22 Event Note: Seen earlier postop She had undergone laparoscopic cholecystectomy today Looks comfortable Seems to have adequate pain control Stable vital signs Abdomen soft Continue pain management Possible DC home tomorrow Daughter Yuliana demetrice
[2022-05-29] MEDS: HYDROmorphone HCl 1 MG/ML SYRINGE 0.5 MG IVPUSH ×2 (16:47→21:25)
--- NOTE | 2022-05-29 18:58 | PC.NURSE ---
Patient refused IV fluids. Dr. Medrano ordered LR for patient but patient refused it stating she is able to drink, reported the refusal to Dr. Medrano and per Dr. Medrano telephone order the order for IV fluids was cancelled.
[2022-05-30] MEDS: ondansetron HCL 4 MG/2 ML VIAL IVPUSH (02:45)
[2022-05-30] MEDS: HYDROmorphone HCl 1 MG/ML SYRINGE 0.5 MG IVPUSH (02:45)
[2022-05-30 02:55] VITALS: BP 133/63; PULSE 75; RESP 16; TEMP 36; O2SAT 94
[2022-05-30] MEDS: Omeprazole 20 MG CAPSULE.DR PO (05:18)
[2022-05-30 06:20] LABS: Hematocrit 34.8 % (37.0-47.0); Hemoglobin 10.9 g/dl (12.0-16.0); Mean Corpuscular HGB Conc 31.3 g/dl (31.0-35.0); Mean Corpuscular Hemoglobin 29.5 pg (27.0-33.0); Mean Corpuscular Volume 94.1 fL (80.0-98.0); Mean Platelet Volume 10.3 fL (9.4-12.3); Platelet Count 284 X10*3/uL (160-400); Red Cell Distribution Width 12.7 % (11.0-16.0); White Blood Count 16.2 X10*3/uL (4.8-10.8)
[2022-05-30 06:43] LABS: Alanine Aminotransferase 73 U/L (0-31); Albumin Level 3.2 g/dL (3.5-5.0); Alkaline Phosphatase 81 U/L (39-117); Anion Gap 12 (12-20); Aspartate Amino Transferase 155 U/L (5-31); Bilirubin Direct 0.4 mg/dL (0.0-0.5); Bilirubin Total 0.7 mg/dL (0.0-1.0); Blood Urea Nitrogen 12 mg/dL (9-16); Calcium 8.5 mg/dL (8.4-10.2); Carbon Dioxide 31 mmol/L (22-29); Chloride 98 mmol/L (96-108); Creatinine Clr Calc Pharmacy 84.5; Estimated Glomerular Filt Rate > 60; Glucose Fasting 127 mg/dL (60-99); Potassium 4.2 mmol/L (3.3-5.1); Sodium 137 mmol/L (135-145); Total Protein 5.6 g/dL (6.5-8.0)
[2022-05-30 07:21] VITALS: BP 135/63; PULSE 75; RESP 17; TEMP 36.6; O2SAT 94
[2022-05-30] MEDS: oxyCODONE HCl Immed Release 5 MG TABLET PO ×2 (07:33→11:23)
[2022-05-30] MEDS: Escitalopram Oxalate 10 MG TABLET PO (07:34)
[2022-05-30] MEDS: Enoxaparin Sodium 40 MG/0.4 ML SYRINGE SUBCUT (07:34)
[2022-05-30] MEDS: lisinopriL 10 MG TABLET PO (07:34)
[2022-05-30] MEDS: Metoprolol Succinate ER 100 MG TAB.ER.24H PO (08:10)
--- NOTE | 2022-05-30 08:25 | P.PNGS_ITS ---
Subjective Subjective Date of Service: 05/30/22 <Roberta Garcia PA-C - Last Filed: 05/30/22 08:31> 05/30/22 <Juan Medrano MD - Last Filed: 05/30/22 11:47> Interval history: Feels great. Has some RUQ pain, especially with deep breaths but comfortable with pain meds. Tolerating solid diet. OOB without difficulty. Wants to go home. <Roberta Garcia PA-C - Last Filed: 05/30/22 08:31> Physical Exam Vital Signs: Vital Signs: Last Vital Signs Temp 97.8 F 05/30/22 07:21 Pulse 75 05/30/22 07:21 Resp 17 05/30/22 07:21 BP 135/63 05/30/22 07:21 Pulse Ox 94 05/30/22 07:21 O2 Del Method 05/30/22 07:21 O2 Flow Rate 2 05/29/22 16:00 FiO2 95 05/27/22 00:00 BMI result Body Mass Index 48.8 <Roberta Garcia PA-C - Last Filed: 05/30/22 08:31> Const: General: comfortable, no acute distress and alert <PETE Mccoy Last Filed: 05/30/22 08:31> Orientation/consciousness: patient oriented x3 <PETE Mccoy Last Filed: 05/30/22 08:31> Resp: Effort & Inspection: normal respiratory effort <Roberta Garcia PA-C - Last Filed: 05/30/22 08:31> GI: Inspection: No distended and Yes incision (dressings c/d/i) <Roberta Garcia PA-C - Last Filed: 05/30/22 08:31> Palpation (GI): Soft to palpation, Tenderness to palpation present (GI) (mild, incisional/RUQ), no guarding, not rigid and No Rebound tenderness present <PETE Mccoy Last Filed: 05/30/22 08:31> Skin: General skin exam: no rashes or lesions noted <PETE Mccoy Last Filed: 05/30/22 08:31> Neuro: General: patient oriented x3 <Roberta Garcia PA-C - Last Filed: 05/30/22 08:31> Objective Data Active Medications Acetaminophen (Acetaminophen 325 Mg Tablet) 650 mg PO Q6H PRN PRN Reason: fever, mild pain Enoxaparin Sodium (Enoxaparin Sodium 40 Mg/0.4 Ml Syringe) 40 mg SUBCUT Q24H [facility] Last Admin: 05/30/22 07:34 Dose: 40 mg Documented By: CALEB Escitalopram Oxalate (Escitalopram Oxalate 10 Mg Tablet) 10 mg PO DAILY [facility] Last Admin: 05/30/22 07:34 Dose: 10 mg Documented By: CALEB Hydromorphone HCl (Hydromorphone Hcl 1 Mg/Ml Syringe) 0.5 mg IVPUSH Q4H PRN; Protocol PRN Reason: Pain, Severe (Pain Scale 7-10) Last Admin: 05/30/22 02:45 Dose: 0.5 mg Documented By: CURTIS Promethazine HCl 12.5 mg/ (Sodium Chloride) 50.5 mls @ 202 mls/hr IV Q6H PRN PRN Reason: nausea/vomiting Lisinopril (Lisinopril 10 Mg Tablet) 10 mg PO DAILY [facility]; Protocol Last Admin: 05/30/22 07:34 Dose: 10 mg Documented By: CALEB Lorazepam (Lorazepam 0.5 Mg Tablet) 0.5 mg PO BEDTIME PRN PRN Reason: Anxiety Last Admin: 05/28/22 21:06 Dose: 0.5 mg Documented By: TEQUILA Metoprolol Succinate (Metoprolol Succinate Er 100 Mg Tab.Er.24h) 100 mg PO DAILY [facility]; Protocol Last Admin: 05/30/22 08:10 Dose: 100 mg Documented By: CALEB Omeprazole (Omeprazole 20 Mg Capsule.Dr) 20 mg PO DAILY@0630 [facility] Last Admin: 05/30/22 05:18 Dose: 20 mg Documented By: CURTIS Ondansetron HCl (Ondansetron Hcl 4 Mg/2 Ml Vial) 4 mg IVPUSH Q8H PRN PRN Reason: Nausea and Vomiting Last Admin: 05/30/22 02:45 Dose: 4 mg Documented By: HO.[email or web address] Oxycodone HCl (Oxycodone Hcl Immed Release 5 Mg Tablet) 5 mg PO Q4H PRN PRN Reason: Pain, Moderate (Pain Scale 4-6 Last Admin: 05/30/22 07:33 Dose: 5 mg Documented By: CALEB Pharmacy Consult (Consult Rx Perform Med Rec) 1 each MISCELLANE ONCE PRN PRN Reason: Consult order <Roberta Garcia PA-C - Last Filed: 05/30/22 08:31> Labs CBC & Chem 7: : 05/30/22 05:17 05/30/22 05:17 <Roberta Garcia PA-C - Last Filed: 05/30/22 08:31> Labs: Laboratory Results - last 24 hr 05/29/22 05/30/22 05/30/22 09:55 05:17 05:17 MCV 94.1 MCH 29.5 MCHC 31.3 RDW 12.7 Plt Count 284 MPV 10.3 Absolute Nucleated RBC 0.000 Nucleated RBC % (auto) 0.0 Anion Gap 12 Estim Creat Clear Calc 84.5 Estimated GFR > 60 POC Glucose 123 H Fasting Glucose 127 H Calcium 8.5 Total Bilirubin 0.7 Direct Bilirubin 0.4 AST 155 H ALT 73 H Alkaline Phosphatase 81 Total Protein 5.6 L Albumin 3.2 L <Roberta Garcia PA-C - Last Filed: 05/30/22 08:31> Procedures Date of Service Date of Service: 05/30/22 <Roberta Garcia PA-C - Last Filed: 05/30/22 08:31> Progress Note: A&P Assessment and plan (1) Gallstone pancreatitis: Status: Acute <Roberta Garcia PA-C - Last Filed: 05/30/22 08:31> (2) S/P laparoscopic cholecystectomy: Status: Acute <Roberta Garcia PA-C - Last Filed: 05/30/22 08:31> Assessment and Plan: says she had a good night tolerating diet pain well controlled looks well, ambulating says she is ready to be discharged abd soft dc instructions explained seen and examined independently <Juan Medrano MD - Last Filed: 05/30/22 11:47> Assessment and Plan: 72 year old female admitted with gallstone pancreatitis now POD #1 s/p lap CCY. She is doing well post op. She is comfortable with analgesics and tolerating a solid diet. VSS. Abd exam is benign with appropriate post op tenderness and dressings c/d/i. She is stable for discharge to home today. F/u in office with Dr Medrano in 2 weeks. Patient comfortable with plan. <Roberta Garcia PA-C - Last Filed: 05/30/22 08:31> Time Spent With Patient Time: Total time spent is greater than 50% in coordination of care (as documented) at patient's floor/unit and/or counseling patient: <Roberta Garcia PA-C - Last Filed: 05/30/22 08:31> Quality Stroke Does the patient have a stroke diagnosis?: No <Roberta Garcia PA-C - Last Filed: 05/30/22 08:31> VTE Prior VTE?: No <Roberta Garcia PA-C - Last Filed: 05/30/22 08:31> VTE Risk Level:: Medical - moderate - high <Roberta Garcia PA-C - Last Filed: 05/30/22 08:31> VTE Device Contraindication: Treatment Not Indicated <Roberta Garcia PA-C - Last Filed: 05/30/22 08:31> VTE Drug Contraindication: N/A - Med Ordered <Roberta Garcia PA-C - Last Filed: 05/30/22 08:31>
--- NOTE | 2022-05-30 10:01 | MHC.CM.PN ---
IMM 05/29 IN CHART HOME TODAY - SELF [employer]TE DAUGHTER TO TRANSPORT
--- NOTE | 2022-05-30 12:22 | HO.POSTANES ---
Post Anesthesia Evaluation Post Anesthesia Evaluation Vital Signs: Vital Signs Temp Pulse Resp BP Pulse Ox O2 Del Method 05/30/22 07:21 97.8 F 75 17 135/63 94 Room Air 05/30/22 02:55 96.8 F 75 16 133/63 94 Room Air Anesthesia: General Endotracheal-GETA Mental Status: Awake Pain Control: Satisfactory Nausea/Vomiting: None Hydration: Adequate Anesthesia-Related Issues: No Anes. Related Issues
--- NOTE | 2022-05-30 12:30 | PM.DS ---
DS: Providers Provider Date of Service: 05/30/22 Date of admission: 05/25/22 07:54 Primary care physician: Faustina Chung MD Consults: 05/25/22 07:50 Consult to Gastroenterology Routine Consulting Provider: Ronnell Pandey Reason for consultation: gallstone pancreatitis Consult to General Surgery Routine Consulting Provider: Naman Cisneros Reason for consultation: gallstone pancreattis DS: Diagnosis Discharge Diagnosis (1) Gallstone pancreatitis: Status: Acute (2) S/P laparoscopic cholecystectomy: Status: Acute DS: Summary Hospital Course Hospital Course: Admission note HPI 72F PMH CAD s/p 3 stents, DM2-diet controlled, HTN, HLD, morbid obesity, presented with abdominal pain.? Patient states that her pain started 2 days prior to presentation.? Was epigastric radiating to right upper quadrant and right flank.? Ten out 10, constant, worse with eating, relieved by bowel rest and opiates.? Associated with nausea vomiting inability to tolerate p.o..? Patient has had right upper quadrant abdominal pain worsened by fatty meals on and off in the past, however, has never been this bad.? Denies chest pain, shortness of breath, fever, chills.? In ED CT abdomen showed acute pancreatitis and cholelithiasis.? Lab significant for total bilirubin of 3.5, ALT 354 with AST 255.? Lipase 2497. Hospital course The patient was admitted to the hospital for evaluation of acute pancreatitis believed to be secondary to gallstone disease. Treated with IV fluid with good response and evaluated by surgical team who did could cystectomy with good response as the patient was able to tolerate diet well with improvement in the liver function. Come back to the hospital for any worsening pain or fever To follow-up with Dr. Dillon in his office in 2 weeks Time Spent with Patient Time attestation: Total time spent providing and/or coordinating discharge services: Discharge coordination time: Greater than 30 minutes Quality: Safe Use of Opioids Does Pt have an Active Cancer Diagnosis on the Problem List?: No Quality: Stroke Does the patient have a stroke diagnosis?: No Physical Exam Vital Signs: Vital Signs: Last Vital Signs Temp 97.8 F 05/30/22 07:21 Pulse 75 05/30/22 07:21 Resp 17 05/30/22 07:21 BP 135/63 05/30/22 07:21 Pulse Ox 94 05/30/22 07:21 O2 Del Method 05/30/22 07:21 O2 Flow Rate 2 05/29/22 16:00 FiO2 95 05/27/22 00:00 BMI result Body Mass Index 48.8 Const: Other: Constitutional : Awake, interactive, not in distress Neck : Normal inspection, Supple Cardiovascular : RRR, no JVP, no lower extremity edema Respiratory : good bilateral air entry, no crackles, wheezes or rhonchi Gastrointestinal: soft, lax, Normal bowel sounds, Non tender Skin : Warm, Dry, surgical wounds clean Neurological : Alert & oriented x3, No focal deficit , CN 2-12 within normal DS: Data Data Completed and Pending Pending studies at discharge: Pending at discharge 05/29/22 12:22 Surgical [PTH] Routine Labs on day of discharge: Laboratory Results - last 24 hr 05/30/22 05/30/22 05:17 05:17 WBC 16.2 H RBC 3.70 L Hgb 10.9 L Hct 34.8 L MCV 94.1 MCH 29.5 MCHC 31.3 RDW 12.7 Plt Count 284 MPV 10.3 Absolute Nucleated RBC 0.000 Nucleated RBC % (auto) 0.0 Sodium 137 Potassium 4.2 Chloride 98 Carbon Dioxide 31 H Anion Gap 12 BUN 12 Creatinine 0.69 Estim Creat Clear Calc 84.5 Estimated GFR > 60 Fasting Glucose 127 H Calcium 8.5 Total Bilirubin 0.7 Direct Bilirubin 0.4 AST 155 H ALT 73 H Alkaline Phosphatase 81 Total Protein 5.6 L Albumin 3.[address] scan - abdomen: Radiologist's impression: ITS Impressions Abdomen Ultrasound 05/26/22 09:17 IMPRESSION: Abnormal appearing gallbladder. Gallstones. 2.3 x 3.5 cm heterogeneous partially calcified gallbladder mass and thickened gallbladder wall. Differential would include stones and sludge ball versus neoplasm. Normal caliber intrahepatic bile ducts and proximal common bile duct. The distal common bile duct is not well visualized. Discharge Plan Discharge Anticipated Discharge Date/Time: 05/30/22 12:28 Patient Disposition: Home, Self-Care Discharge Diagnosis: Pancreatitis 2/2 gall stones Cholecystectomy Referrals: Faustina Chung MD [Primary Care Provider] - 1 Week Juan Medrano MD [Physician] - 2 Weeks Discharge Medications: New oxycodone 5 mg tablet 5 mg PO Q4H PRN (Reason: pain (scale score 7-10)) Qty: 24 0RF Rx Instructions: Partial Fill upon patient request. Take 1-2 tablets every 4 hours as needed for pain. Continued ezetimibe 10 mg tablet 10 mg PO DAILY Qty: 90 3RF citalopram 20 mg tablet 20 mg PO DAILY Qty: 90 1RF aspirin 81 mg Tablet,Delayed Release (Dr/Ec) 81 mg PO DAILY magnesium oxide 400 mg (241.3 mg magnesium) Tablet 400 mg PO DAILY lorazepam 0.5 mg Tablet 0.5 - 1 mg PO DAILY PRN (Reason: Anxiety) docusate sodium 100 mg Tablet 100 mg PO DAILY metoprolol succinate 100 mg tablet extended release 24 hr 100 mg PO DAILY lisinopril 10 mg tablet 10 mg PO DAILY rosuvastatin 5 mg tablet 5 mg PO Q2D Discharge Orders: Discharge Order (Routine); Ordered 05/30/22 Ordered By: Janet Steward Activity on Discharge: No heavy lifting Stand Alone Forms: Patient Portal Discharge page Activity Restrictions/Additional Instructions: If the incision area is tender, you may apply an ice pack for short intervals (No more than 20 minutes on, followed by at least 20 minutes off). Do not apply heat. Do not use creams, lotions, or topical antibiotics unless instructed to do so by your surgeon. These can cause infection or allergic reaction. Ok to shower 24 hours after your surgery. Remove bandaids in 2 days and replace. You have steri strips (small white cloth strips) covering your incision- these will fall off ~1 week. Follow up in office with Dr. Medrano in 2 weeks. ([phone]) No heavy lifting (>10-20lbs) or strenuous activity! Call Your Doctor If: -Your temperature exceeds 101.5? F -You experience excessive pain or swelling -You have an unexpected reaction to medication -You have excessive bleeding -You experience continued vomiting/nausea -Your incision begins to separate -Your incision shows signs of infection such as increased redness, swelling, excessive pain, drainage (light blood or clear fluid is normal) or heat Care Plan Goals: Read below Health Concerns: Read below Plan of Treatment: Read below Assessment: Admitted to the hospital for abdominal pain. Found to have an evidence of pancreas inflammation secondary to gallstones from the gallbladder. Treated with IV fluid and pain management and evaluated by surgical team who removed the gallbladder surgically with good results. You were able to tolerate diet well. Come back to the hospital for any worsening pain or fever To follow-up with Dr. Dillon in his office in 2 weeks
== END 2022-05-30 13:43 | disposition home or self-care (01) | DRG 418 ==
LOC: HO.ED 05:58 → HO.EDOVER 07:59 → HO.S3 12:00
PROVIDERS: Internal Medicine Gastroenterology; Physician Assistant Surgical; Surgery; Admitting Provider Internal Medicine; Emergency Provider Internal Medicine; PCP Internal Medicine; Visit Provider Student in an Organized Health Care Education/Training Program
PROC: 0FT44ZZ Resection of Gallbladder, Percutaneous Endoscopic Approach (ICD-10-PCS; CPT 47562; principal; 2022-05-29 10:30)
DX: K85.10 Biliary acute pancreatitis without necrosis or infection (principal); K80.10 Calculus of gallbladder with chronic cholecystitis without obstruction; Z68.42 Body mass index [BMI] 45.0-49.9, adult; I25.10 Atherosclerotic heart disease of native coronary artery without angina pectoris; F41.9 Anxiety disorder, unspecified; E78.5 Hyperlipidemia, unspecified; E11.9 Type 2 diabetes mellitus without complications; E66.01 Morbid (severe) obesity due to excess calories; I25.2 Old myocardial infarction; K82.8 Other specified diseases of gallbladder; Z20.822 Contact with and (suspected) exposure to COVID-19; Z95.5 Presence of coronary angioplasty implant and graft; Z23 Encounter for immunization; Z71.3 Dietary counseling and surveillance; Z88.5 Allergy status to narcotic agent; Z88.8 Allergy status to other drugs, medicaments and biological substances; Z79.82 Long term (current) use of aspirin; Z79.899 Other long term (current) drug therapy
CPT/HCPCS: 36415; 74177; 76700; 80048; 80053; 80076; 82947; 83605; 83690; 83735; 84484; 85025; 85027; 85610; 87635; 88304; 90686; 93005; 99285; J1100; J1170; J1650; J2250; J2270; J2405; J2543; J2550; J2795; J3010; Q9967

== ENCOUNTER 2023-06-28 08:59 | Outpatient (REF) | payer MEDICARE, SELFPAY ==
[2023-06-28 11:27] LABS: MANUAL DIFF FLAG NO
[2023-06-28 11:32] LABS: Basophils Absolute Auto 0.1 X10*3/uL (0.0-0.2); Basophils Percent Auto 0.4 % (0-2); Eosinophils Absolute Auto 0.1 X10*3/uL (0.0-0.4); Eosinophils Percent Auto 1.1 % (0-4); Hematocrit 42.2 % (37.0-47.0); Hemoglobin 13.5 g/dl (12.0-16.0); Imm Gran Abs Auto 0.06 X10*3/uL (0.00-0.03); Imm Gran Pct Auto 0.5 % (0.0-0.4); Lymphocytes Percent Auto 17.6 % (20-40); Mean Corpuscular Hemoglobin 29.8 pg (27.0-33.0); Mean Corpuscular Volume 93.2 fL (80.0-98.0); Mean Platelet Volume 10.5 fL (9.4-12.3); Monocytes Absolute Auto 0.9 X10*3/uL (0.1-1.2); Monocytes Percent Auto 8.1 % (2-11); Neutrophils Absolute Auto 8.1 x10*3/uL (2.0-8.3); Neutrophils Percent Auto 72.3 % (45-73); Platelet Count 312 X10*3/uL (160-400); Red Blood Count 4.53 X10*6/uL (4.20-5.50); Red Cell Distribution Width 13.2 % (11.0-16.0); White Blood Count 11.1 X10*3/uL (4.8-10.8)
[2023-06-28 12:26] LABS: Alanine Aminotransferase 8 U/L (0-31); Albumin Level 3.7 g/dL (3.5-5.0); Alkaline Phosphatase 72 U/L (39-117); Anion Gap 12 (12-20); Aspartate Amino Transferase 15 U/L (5-31); Bilirubin Total 0.6 mg/dL (0.0-1.0); Blood Urea Nitrogen 20 mg/dL (9-16); Calcium 9.3 mg/dL (8.4-10.2); Carbon Dioxide 29 mmol/L (22-29); Chloride 102 mmol/L (96-108); Cholesterol 171 mg/dL (<200); Estimated Glomerular Filt Rate > 60; Glucose Fasting 143 mg/dL (60-99); HDL Cholesterol 49 mg/dL (>40); Iron 85 mcg/dL (30-160); LDL Cholesterol Calculated 105 mg/dL (<100); Percent Iron Saturation 35 % (15-50); Potassium 4.2 mmol/L (3.3-5.1); Sodium 139 mmol/L (135-145); Total Iron Binding Capacity 241 mcg/dL (228-428); Total Protein 6.9 g/dL (6.5-8.0); Triglycerides 89 mg/dL (<150); Unsaturated Iron Binding 156 ug/dL
[2023-06-28 12:40] LABS: Creatinine Urine 175.04 mg/dL; Estimated Average Glucose 140 mg/dL; Hemoglobin A1c % 6.5 % (<6.0); Microalbum/Creatinine Ratio Ur 3.9 ug/mg cr (<30)
== END 2023-06-28 09:00 | disposition home or self-care (01) ==
LOC: HO.HMGCLDS 08:59
PROVIDERS: PCP Internal Medicine; Visit Provider Internal Medicine
DX: E11.9 Type 2 diabetes mellitus without complications (principal); I25.10 Atherosclerotic heart disease of native coronary artery without angina pectoris; E55.9 Vitamin D deficiency, unspecified; I10 Essential (primary) hypertension; E78.5 Hyperlipidemia, unspecified; R74.8 Abnormal levels of other serum enzymes; Z78.0 Asymptomatic menopausal state
CPT/HCPCS: 36415; 80053; 80061; 82043; 82306; 82570; 83036; 83540; 85025

== ENCOUNTER 2023-06-29 09:25 | Outpatient (AMB) | payer MEDICARE, SELFPAY ==
--- NOTE | 2023-06-29 09:38 | AM.OFFVISMDC ---
Intake Vital Signs 06/29/23 10:23 Height 5 ft Weight 256 lb BMI 50.0 BP 136/80 Blood Pressure Location Rt brachial Position Sitting Pulse 72 Pulse Source Pulse Oximeter Pulse Oximetry (%) 96 Oxygen Delivery Method Room Air Intake Visit Reasons: SHANIQUA [id number] Intake Note: Pt is here today for her SWV Allergies adhesive tape Allergy (Intermediate, Verified 06/29/23 10:55) BLISTERS/LOCALIZED ITCHING codeine [CODEINE] Allergy (Intermediate, Verified 06/29/23 10:55) RASH, stomach upset Ykpurvt-AXT-AaD Reductase Inhibitor [RYFHLQS-YUT-RGG REDUCTASE INHIBITOR] Adverse Reaction (Intermediate, Verified 06/29/23 10:55) MYALGIAS Medication List - Last Reconciled 06/29/23 by Faustina Chung MD aspirin 81 mg PO DAILY citalopram 20 mg PO DAILY ezetimibe 10 mg PO DAILY lisinopril 10 mg PO DAILY lorazepam 0.5 - 1 mg PO DAILY PRN magnesium oxide 400 mg PO DAILY metoprolol succinate ER 100 mg PO DAILY rosuvastatin 5 mg PO Q2D Do you need a note to return to daycare/school/sports/work: No HPI SHANIQUA G0439 HPI Details AWV ? 73-year-old lady with macular degeneration, legally blind, no longer followed by Ophthalmology, has type 2 diabetes mellitus without complication on or long-term insulin use, has coronary artery disease, essential hypertension, dyslipidemia, presents for her ? Annual Wellness Visit, subsequent visit. She is up-to-date with her screening mammogram done on 02/19/2023 with normal findings, refused getting bone density scan screening. No longer gets Pap smears, last colonoscopy was done 03/30/2020, due again in 2024 due to history of adenomatous polyps in the past. Had a lipid screening done and diabetes mellitus follow-up 06/20/2023 both of which came back within normal limits, with a hemoglobin A1c at 6.5%. She is due for her flu shot, COVID booster, shingles, RSV, and flu shot vaccine, up-to-date with her pneumonia vaccination PE .? Medical / Social History Reviewed? Past Medical History ?Yes . ? [place] of Care / Care Team list updated ?Yes . ? Surgical/Hospitalization History ?Yes . ? Current Medications (including OTC and supplements) ?Yes . ? Family History ?Yes . ? Tobacco Control form ?Yes . ? AUDIT-C (Alcohol use) form ?Yes . ? Illicit drug use in Social History ?Yes . ? Current diagnosis of depression? ?No ? Appropriate PHQ2/PHQ9 completed ?Yes . ? Data entered by ?Account Management Specialist and reviewed by provider ? Fall Risk ? Fall History? Have you had any falls with injury in the past year? ?Tripped on a dog toy on the floor a week ago, no injury ? Have you had two or more falls in the past year? ?No . ? Fall Risk Assessment: 1. ? HRA filled out by the patient, reviewed by Provider and scanned. ? AWV ? Balance? [place] ?Yes . ? Tandem walk ?unable ? Walk and Turn ?Yes . ? Rise from sit to stand ?Yes . ?Vision? Corrective lens ?no, declared legally blind by Dr. Garcia due to macular degeneration ?Hearing? Whisper test ?pass . ?Written Plan?Completed. See Patient Documents.? [facility] Medical History Abdominal gas pain Type 2 diabetes mellitus without complication, without long-term current use of insulin Ocular herpes simplex Macular degeneration Degenerative joint disease of knee, left CAD (coronary artery disease) Vitamin D deficiency Menopause Anxiety disorder Non-ST elevation myocardial infarction (NSTEMI) Essential hypertension Dyslipidemia Endometrial carcinoma Surgical History H/O heart artery stent History of total right knee replacement History of tonsillectomy History of hysterectomy History of 2 sections Family History Father CVD (cardiovascular disease) Mother Hyperlipemia Manic depression Mental illness in member of household Mental health disorder Sister Stroke Manic depression History of mental problems Son Drug addiction Substance use disorder Daughter No problems noted. Social History Household Members: Family Housing: Apartment Do you presently have visiting nurse or other home services: No Alcohol intake: never Patient Tobacco Use Status: Never used Tobacco e-Cigarette/Vaping Use: Never Used Advance Directives Date on File: 05/09/22 service: No Current occupational status: retired and disabled Questionnaire Medicare Wellness Checkup [age] What gender do you identify with?: female During the past 4 weeks, how much have you been bothered by emotional problems such as feeling anxious, depressed, irritable, sad or downhearted, and blue?: not at all During the past 4 weeks, has your physical & emotional health limited your social activities with family, friends, neighbors, or groups?: not at all During the past 4 weeks, how much bodily pain have you generally had?: no pain During the past 4 weeks, was someone available to help you if you needed & wanted help?: yes, as much as I wanted During the past 4 weeks, what was the hardest physical activity you could do for at least 2 minutes?: heavy Can you get to places out of walking distance without help? (For eg., can you travel alone on buses, taxis or drive your car?): Yes Can you go shopping for groceries or clothes without someone's help?: No Can you prepare your own meals?: Yes Can you do your housework without help?: Yes Because of any health problems, do you need the help of another person with your personal care needs such as eating, bathing, dressing or getting around the house?: No Can you handle your own money without help?: Yes During the past 4 weeks, how would you rate your health in general?: very good During the past 4 weeks how have things been going for you?: very well; could hardly better Are you having difficulties driving your car?: not applicable, I don't use a car Do you always fasten your seat belt when you are in a car?: yes, usually During past 4 weeks, have you been bothered by the following: never: Falling or dizzy when standing up, Sexual problems?, Trouble eating well?, Teeth or denture problems?, Problems using the telephone? and Tiredness or fatigue? Have you fallen 2 or more times in the past year?: Yes Are you afraid of falling?: No Are you a smoker?: no During the past 4 weeks, how many drinks of wine, beer, or other alcoholic beverages did you have?: no alcohol at all Do you exercise for about 20 minutes 3 or more times a week?: no, I usually do not exercise this much Have you been given information to help with the following?: no: Hazards in your house that might hurt you? and no: Keeping track of your medications? How often do you have trouble taking medicines the way you have been told to take them?: I always take medicine as prescribed How confident are you that you can control & manage most of your health problems?: very confident What is your race?: White Mini Mental State Exam (MMSE) Orientation What is the (year) (season) (date) (day) (month)?: year (2022), season (winter), date (06/29/23), day (sunday) and month (jun) Where are we (state) (county) (town or city) (hospital) (floor)?: state ([place]), county ([place]), town or city ([place]) and hospital/clinic ([facility] [place]) Score Score: 9 Activity of Daily Living Bathing - sponge bath, tub bath or shower: receives no assistance (gets in/out by self, if usual bathing means Dressing - getting clothes from closets & drawers, including inner/outer garments & fasteners.: gets clothes & gets completely dressed without help Toileting - going to the 'toilet room' for urine/bowel elimination & cleaning self/arranging clothes: goes to toilet room, cleans self, arranges clothes without help Transfer: moves in & out of bed and chair without help (may use support object) Continence: controls urination/bowel movements completely by self Feeding: feeds self without help Total Score: 0 Information obtained from: patient Using telephone: independent Traveling: dependent Shopping: needs assistance Preparing meals: independent Housework: independent Taking medicine: independent Managing money: dependent PHQ-9 Over the last 2 weeks, how often have you been bothered by any of the following problems? 1. Little interest or pleasure in doing things: not at all 2. Feeling down, depressed, or hopeless: not at all 3. Trouble falling or staying asleep, or sleeping too much: not at all 4. Feeling tired or having little energy: not at all 5. Poor appetite or overeating: not at all 6. Feeling bad about yourself - or that you are a failure or have let yourself or your family down: not at all 7. Trouble concentrating on things, such as reading the newspaper or watching television: not at all 8. Moving or speaking so slowly that other people could have noticed. Or the opposite - being so fidgety or restless that you have been moving around a lot more than usual: not at all 9. Thoughts that you would be better off or of hurting yourself in some way: not at all Total score: 0 Depression Screening Interpretation: Negative Depression Screening Done: Yes 24197 - PHQ-9 Billing: Yes Source: Developed by Drs. Emery Smith, Jaquelin Bernard, Harry Gaviria and colleagues, with an educational riaz from [employer] Physical Exam Vital Signs: Last Vital Signs Pulse 72 06/29/23 10:23 BP 136/80 06/29/23 10:23 Pulse Ox 96 06/29/23 10:23 Oxygen Delivery Method Room Air 06/29/23 10:23 BMI result Body Mass Index 50.0 Assessment & Plan Assessment & Plan (1) Encounter for subsequent annual wellness visit (AWV) in Medicare patient: Code(s): Z00.00 - Encounter for general adult medical examination without abnormal findings Plan: Medical wellness checklist reviewed, discussed with patient and updated. Copy given (2) Type 2 diabetes mellitus without complication, without long-term current use of insulin: Code(s): E11.9 - Type 2 diabetes mellitus without complications Plan: Stable controlled, current hemoglobin A1c is 6.5% (3) Essential hypertension: Code(s): I10 - Essential (primary) hypertension Plan: Blood pressure at goal of less than 130/80. Continue with current medication. Reinforced importance of following a low sodium diet, getting regular exercise, and lowering stress levels. (4) Dyslipidemia: Code(s): E78.5 - Hyperlipidemia, unspecified Plan: Continue with ezetimibe and rosuvastatin taken 5 mg 1 tablet every other day (5) Macular degeneration: Comment: Followed by Dr. Garcia Code(s): H35.30 - Unspecified macular degeneration Qualifiers: Macular degeneration type: unspecified type Eye laterality: bilateral Qualified Code(s): H35.30 - Unspecified macular degeneration Plan: The clear legally blind by her kicking machine operator, no longer gets follow-up appointments. (6) Anxiety disorder: Code(s): F41.9 - Anxiety disorder, unspecified Qualifiers: Anxiety disorder type: generalized anxiety disorder Qualified Code(s): F41.1 - Generalized anxiety disorder Plan: Continue on citalopram and lorazepam which has been controlling her anxiety attacks Orders: Orders Hemoglobin A1c 10/01/23 E11.9 - Type 2 diabetes mellitus without complications, E55.9 - Vitamin D deficiency, unspecified, E78.5 - Hyperlipidemia, unspecified, I10 - Essential (primary) hypertension, I25.10 - Atherosclerotic heart disease of [place] coronary artery without angina pectoris, Z78.0 - Asymptomatic menopausal state Lipid Panel 10/01/23 E11.9 - Type 2 diabetes mellitus without complications, E55.9 - Vitamin D deficiency, unspecified, E78.5 - Hyperlipidemia, unspecified, I10 - Essential (primary) hypertension, I25.10 - Atherosclerotic heart disease of [place] coronary artery without angina pectoris, Z78.0 - Asymptomatic menopausal state Aspartate Amino Transferase 10/01/23 E11.9 - Type 2 diabetes mellitus without complications, E55.9 - Vitamin D deficiency, unspecified, E78.5 - Hyperlipidemia, unspecified, I10 - Essential (primary) hypertension, I25.10 - Atherosclerotic heart disease of [place] coronary artery without angina pectoris, Z78.0 - Asymptomatic menopausal state Basic Metabolic Panel Fasting 10/01/23 E11.9 - Type 2 diabetes mellitus without complications, E55.9 - Vitamin D deficiency, unspecified, E78.5 - Hyperlipidemia, unspecified, I10 - Essential (primary) hypertension, I25.10 - Atherosclerotic heart disease of [place] coronary artery without angina pectoris, Z78.0 - Asymptomatic menopausal state Alanine Aminotransferase 10/01/23 E11.9 - Type 2 diabetes mellitus without complications, E55.9 - Vitamin D deficiency, unspecified, E78.5 - Hyperlipidemia, unspecified, I10 - Essential (primary) hypertension, I25.10 - Atherosclerotic heart disease of [place] coronary artery without angina pectoris, Z78.0 - Asymptomatic menopausal state Medications: Refilled tizanidine 2 mg PO .QD PRN 30 tabs 0RF muscle spasticity M62.838 - Other muscle spasm Quality Reporting (2019) Depression/Bipolar (159/160/161/177) PHQ-9: Total score: 0 Coding Level of Care Code Medicare Subsequent (G0439) Diagnoses Encounter for subsequent annual wellness visit (AWV) in Medicare patient Z00.00 Type 2 diabetes mellitus without complication, without long-term current use of insulin E11.9 Essential hypertension I10 Dyslipidemia E78.5 Macular degeneration of both eyes, unspecified type H35.30 Macular degeneration type: unspecified type Eye laterality: bilateral Generalized anxiety disorder F41.1 Anxiety disorder type: generalized anxiety disorder CPT Codes Advance Care Planning - Time spent: 16-45 minutes ([id number]) Advance Care Planning Advance Care Planning discussion: Completed/Scanned Date of discussion: 06/29/23 Who was present: Patient Forms completed: MOLST Time spent: 16-45 minutes Actual minutes spent: 16
[2023-06-29 10:23] VITALS: BP 136/80; PULSE 72; O2SAT 96; BMI 50.0
== END 2023-06-29 12:00 | disposition home or self-care (01) ==
PROVIDERS: PCP Internal Medicine; Visit Provider Internal Medicine
DX: Z00.00 Encounter for general adult medical examination without abnormal findings (principal); E11.9 Type 2 diabetes mellitus without complications; I10 Essential (primary) hypertension; E78.5 Hyperlipidemia, unspecified; H35.30 Unspecified macular degeneration; F41.1 Generalized anxiety disorder
CPT/HCPCS: 99497; G0439

== ENCOUNTER 2023-10-18 09:00 | Outpatient (REF) | payer MEDICARE, SELFPAY ==
[2023-10-18 10:41] LABS: Alanine Aminotransferase 9 U/L (0-31); Anion Gap 10 (12-20); Aspartate Amino Transferase 14 U/L (5-31); Blood Urea Nitrogen 17 mg/dL (9-16); Calcium 9.3 mg/dL (8.4-10.2); Carbon Dioxide 30 mmol/L (22-29); Chloride 105 mmol/L (96-108); Cholesterol 157 mg/dL (<200); Estimated Glomerular Filt Rate > 60; Glucose Fasting 117 mg/dL (60-99); HDL Cholesterol 38 mg/dL (>40); LDL Cholesterol Calculated 100 mg/dL (<100); Potassium 4.4 mmol/L (3.3-5.1); Sodium 141 mmol/L (135-145); Triglycerides 98 mg/dL (<150)
[2023-10-18 10:54] LABS: Estimated Average Glucose 131 mg/dL; Hemoglobin A1c % 6.2 % (<6.0)
== END 2023-10-18 09:01 | disposition home or self-care (01) ==
LOC: HO.HMGCLDS 09:00
PROVIDERS: PCP Internal Medicine; Visit Provider Internal Medicine
DX: E11.9 Type 2 diabetes mellitus without complications (principal); I25.10 Atherosclerotic heart disease of native coronary artery without angina pectoris; E55.9 Vitamin D deficiency, unspecified; I10 Essential (primary) hypertension; E78.5 Hyperlipidemia, unspecified; Z78.0 Asymptomatic menopausal state
CPT/HCPCS: 36415; 80048; 80061; 83036; 84450; 84460

== ENCOUNTER 2023-10-25 09:02 | Outpatient (AMB) | payer MEDICARE, SELFPAY ==
--- NOTE | 2023-10-25 09:19 | MHC.PC.OV ---
Vital Signs 10/25/23 09:20 Height 5 ft Weight 237 lb BMI 46.3 BP 100/68 Blood Pressure Location Lt brachial Position Sitting Pulse 66 Pulse Source Pulse Oximeter Pulse Oximetry (%) 95 Oxygen Delivery Method Room Air Intake Visit Reasons: follow up Intake Note: Pt is here today for her lab results f/u Allergies adhesive tape Allergy (Intermediate, Verified 10/25/23 09:53) BLISTERS/LOCALIZED ITCHING codeine [CODEINE] Allergy (Intermediate, Verified 10/25/23 09:53) RASH, stomach upset Rugxbms-CVI-KuA Reductase Inhibitor [QHGUKSQ-WDJ-OIJ REDUCTASE INHIBITOR] Adverse Reaction (Intermediate, Verified 10/25/23 09:53) MYALGIAS Medication List - Last Reconciled 10/25/23 by Faustina Chung MD aspirin 81 mg PO DAILY citalopram 20 mg PO DAILY ezetimibe 10 mg PO DAILY lisinopril 10 mg PO DAILY lorazepam 0.5 - 1 mg PO DAILY PRN magnesium oxide 400 mg PO DAILY metoprolol succinate ER 100 mg PO DAILY rosuvastatin 5 mg PO Q2D tirzepatide (Mounjaro) 5 mg subcut QWEEK Tobacco use date assessed: 10/25/23 Fall risk assessment: No Falls in past year Last assessed Fall Risk: 10/25/23 Dental Screening Did you have a dental visit in the last 12 months?: Yes Did you have a dental problem in the last 6 months where you did not have access to dental care?: No Was dental information given to patient?: Patient has dentist HPI follow up HPI Details 73-year-old lady with history type 2 diabetes mellitus, has macular degeneration, coronary artery disease with history of NSTEMI, , hypertension, dyslipidemia and anxiety disorder, presents today for her follow-up. She has been compliant with taking her medications, and states that she is currently taking Mounjaro 5 mg subcutaneously weekly. She states that her daughter was able to get it for her, and she has been taking it now for the last 6 weeks. She has lost approximately 19 lb in the last 4 months. Tolerating Mounjaro well , had initial nausea with the 1st dose which has resolved spontaneously. [facility], LAT[facility] Medical History (Updated 10/26/23 @ 00:42 by Faustina Chung MD) Type 2 diabetes mellitus without complication, without long-term current use of insulin Ocular herpes simplex Macular degeneration Degenerative joint disease of knee, left CAD (coronary artery disease) Vitamin D deficiency Menopause Anxiety disorder Non-ST elevation myocardial infarction (NSTEMI) Essential hypertension Dyslipidemia Endometrial carcinoma Surgical History H/O heart artery stent History of total right knee replacement History of tonsillectomy History of hysterectomy History of 2 sections Family History Father CVD (cardiovascular disease) Mother Hyperlipemia Manic depression Mental illness in member of household Mental health disorder Sister Stroke Manic depression History of mental problems Son Drug addiction Substance use disorder Daughter No problems noted. Social History Household Members: Family Housing: Apartment Do you presently have visiting nurse or other home services: No Alcohol intake: never Patient Tobacco Use Status: Never used Tobacco e-Cigarette/Vaping Use: Never Used Advance Directives Date on File: 05/09/22 service: No Current occupational status: retired and disabled Cognitive needs: No Hearing needs: Yes Vision needs: Yes Questionnaire PHQ-9 Over the last 2 weeks, how often have you been bothered by any of the following problems? 1. Little interest or pleasure in doing things: not at all 2. Feeling down, depressed, or hopeless: not at all 3. Trouble falling or staying asleep, or sleeping too much: not at all 4. Feeling tired or having little energy: not at all 5. Poor appetite or overeating: not at all 6. Feeling bad about yourself - or that you are a failure or have let yourself or your family down: not at all 7. Trouble concentrating on things, such as reading the newspaper or watching television: not at all 8. Moving or speaking so slowly that other people could have noticed. Or the opposite - being so fidgety or restless that you have been moving around a lot more than usual: several days 9. Thoughts that you would be better off or of hurting yourself in some way: not at all Total score: 1 Depression Screening Interpretation: Negative Depression Screening Done: Yes 05891 - PHQ-9 Billing: Yes Source: Developed by Drs. Emery Smith, Jaquelin Bernard, Harry Gaviria and colleagues, with an educational riaz from [employer]. Thrive Questionnaire Date Thrive assessed: 10/25/23 I am a: Patient What is your living situation today?: I have a steady place to live Within the past 12 months, did the food you bought not last and you didn't have the money to get more?: Never true Within the past 12 months, did you worry whether your food would run out before you got money to buy more?: Never true Do you have trouble paying for medicines?: No Do you have trouble getting transportation to medical appointments?: No Do you have trouble paying your heating and electricity bill?: No Do you have trouble taking care of your child, family member or friend?: No Do you have trouble with day-to-day activities such as bathing, preparing meals, shopping, managing finances, etc.?: No Are you currently unemployed and looking for a job?: No Are you interested in more education?: No THRIVE Score: 0 AUDIT C Alcohol Use Questionnaire (AUDIT-C) 1. How often do you have a drink containing alcohol?: Never Total Score: 0 KECIA-7 AMB Questionnaire KECIA-7 Date KECIA - 7 assessed: 10/25/23 Feeling nervous, anxious, or on edge: 0 = Not at all Not being able to stop or control worryin = Not at all Worrying too much about different things: 0 = Not at all Trouble relaxin = Not at all Being so restless that it is hard to sit still: 0 = Not at all Becoming easily annoyed or irritable: 0 = Not at all Feeling afraid as if something awful might happen: 0 = Not at all Total KECIA-7 score (0-4 normal; 5-9 mild; 10-14 moderate; 15-21 severe): 0 Source: Developed by Drs. Emery Smith, Jaquelin Bernard, Harry Gaviria and colleagues, with an educational riaz from [employer]. KECIA-7 Assessment Billing KECIA-7 Assessment Tool: KECIA-7 Assessment 81761 Review of Systems Const Denies body aches, Denies fatigue, Denies fever(s), Denies headache(s) and Denies weakness Eyes Denies change in vision ENT Denies dizziness, Denies headache(s), Denies nasal congestion, Denies nasal discharge and Denies sore throat Card Denies chest pain, Denies lightheadedness, Denies palpitations and Denies dyspnea Resp Denies chest congestion, Denies cough, Denies dyspnea and Denies wheezing GI Denies abdominal pain, Denies change in bowel habits and Denies heartburn Denies urinary frequency, Denies dysuria and Denies urinary urgency Musc Denies myalgias, Denies arthralgias, Denies joint swelling and Denies muscle weakness Skin/Breast Denies lesions and Denies rash Neuro Denies dizziness, Denies headache(s) and Denies weakness Psych Reports no additional complaints Endo Denies fatigue, Denies polydipsia, Denies polyuria and Denies palpitations Mayito/Lymph Denies easy bruising Aller/Immun Denies seasonal rhinorrhea and Denies wheezing Physical exam (Primary Care) Vital Signs: Last Vital Signs Pulse 66 10/25/23 09:20 BP 100/68 10/25/23 09:20 Pulse Ox 95 10/25/23 09:20 Oxygen Delivery Method Room Air 10/25/23 09:20 BMI result Body Mass Index 46.3 BMI Assessment/Plan discussion: High BMI High, discussed plan: lifestyle, weight reduction, dietary and physical activity Tobacco/Smoking Status: Tobacco use Status Tobacco use date assessed 10/25/23 10/25/23 09:30 Patient Tobacco Use Status Never used Tobacco 10/25/23 09:20 e-Cigarette/Vaping Use Never Used 10/25/23 09:20 PHQ-9: PHQ-9 Score PHQ-9: Total score 1 10/25/23 10:16 Depression Screening Interpretation: Negative Thrive Assessment: Date of Thrive Assessment Date Thrive assessed 10/25/23 10/25/23 09:31 Const General: cooperative, comfortable and no acute distress Nutritional Appearance: obese Orientation/consciousness: patient oriented x3 HENMT Mouth: Normal oral and palatal mucosa present and moist mucous membranes Eyes General: appearance normal, both eyes and all related structures Neck Neck: Yes full ROM, Yes no lymphadenopathy, Yes no meningeal signs and Yes supple Thyroid: Thyroid normal (Nonpalpable) Resp Effort & Inspection: normal respiratory effort and able to speak in complete sentences Auscultation: clear to auscultation bilaterally Cardio Rate: regular rate Rhythm: regular rhythm Heart sounds: S1 normal heart sound present and S2 normal heart sound present GI Inspection: Yes obesity Palpation (GI): Soft to palpation, nontender and no guarding Auscultation: normal bowel sounds General: Yes no CVA tenderness Back/Spine/Pelvis Back: no CVA tenderness Skin Lesions: no lesions Rashes: no rashes Neuro General: patient oriented x3, gait normal, moves all extremities, no meningeal signs, no focal motor deficits and normal sensation to monofilament Cranial nerves: Yes CN's II-XII intact bilaterally Extrem General: Yes full ROM, Yes no joint enlargement, Yes no pedal edema, Yes no calf tenderness and Yes normal gait Psych Appearance: grossly normal and well kempt Mental Status: mental status grossly normal Speech and movement: Normal speech and movement present Affect: normal affect Results Reviewed Results Reviewed: Name: Elsy Avalos Age/Sex: 73/F : 1950 Unit#: [id number] Attend Dr: Faustina Chung MD Re10/18/23 Status: DEP [facility] Dis[facility]: SPEC : [id number] JOSE ANGEL: 10/18/23 STATUS: COMP REQ : [id number] RECD: 10/18/23-[address]: Faustina Chung MD COMP: 10/18/23 ENTERED: 10/18/[address]: ORDERED: Met Prof Fast, AST, ALT, Lipid Panel Test Result Flag Reference Sodium 141 135-145 mmol/L Potassium 4.4 3.3-5.1 mmol/L CL 105 96-108 mmol/L CO2 30 H 22-29 mmol/L Gap 10 L 12-20 BUN 17 H 9-16 mg/dL Creat 0.79 0.5-1.4 mg/dL EGFR > 60 NOTE: For -[place] Citizen individuals, multiply the result by 1.210. Chronic Kidney Disease: Estimated GFR < 60 mL/min/1.73m2 Severe Kidney Disease: Estimated GFR < 15 mL/min/1.73m2 FBS 117 H 60-99 mg/dL A fasting glucose from 100-125 mg/dl is considered impaired (pre-diabetes). CA 9.3 8.4-10.2 mg/dL AST (GOT) 14 5-31 U/L ALT (GPT) 9 0-31 U/L Triglyceride 98 <150 mg/dL Desirable Triglyceride: less than 150 mg/dL Borderline High Triglyceride 150-199 mg/dL High Triglyceride: 200-499 mg/dL Very High Triglyceride: greater than or equal to 5OO mg/dL Cholesterol 157 <200 mg/dL Desirable Cholesterol: less than 200 mg/dL Borderline High Cholesterol: 200-239 mg/dL High Cholesterol: greater than 239 mg/dL LDL Calculated 100 H <100 mg/dL Desirable LDL: less than 100 mg/dL Near Optimal/Above Optimal LDL: 110-129 mg/dL Borderline High LDL: 130-159 mg/dL High LDL: 160-189 mg/dL Very High LDL: greater than or equal to 190 mg/dL HDL 38 L >40 mg/dL Desirable HDL: greater than 40 mg/dL Laboratory Tests 10/18/23 09:03 Estimat Average Glucose 131 Hemoglobin A1c % 6.2 H Assessment and Plan Assessment & Plan (1) Dyslipidemia: Code(s): E78.5 - Hyperlipidemia, unspecified Plan: Latest fasting lipids are within normal limits, continued on rosuvastatin 5 mg taken 1 every other day in addition to ezetimibe 10 mg once daily. Reinforced importance of following a low-cholesterol diet and staying active get at least 30 minutes of exercise daily and increase as tolerated. (2) Essential hypertension: Code(s): I10 - Essential (primary) hypertension Plan: Blood pressure at goal of less than 130/80. Continue with current medication. Reinforced importance of following a low sodium diet, getting regular exercise, and lowering stress levels. (3) Anxiety disorder: Code(s): F41.9 - Anxiety disorder, unspecified Qualifiers: Anxiety disorder type: generalized anxiety disorder Qualified Code(s): F41.1 - Generalized anxiety disorder Plan: Continue citalopram 20 mg daily and takes an occasional lorazepam as needed for acute anxiety attacks (4) Vitamin D deficiency: Code(s): E55.9 - Vitamin D deficiency, unspecified Plan: Ordered the vitamin-D level check (5) CAD (coronary artery disease): Comment: No longer being seen by Cardiology, patient refuses further follow-ups Code(s): I25.10 - Atherosclerotic heart disease of [place] coronary artery without angina pectoris Plan: Continue with aspirin 81 mg daily, (6) Type 2 diabetes mellitus without complication, without long-term current use of insulin: Code(s): E11.9 - Type 2 diabetes mellitus without complications Plan: Recent lab results reviewed with patient, with sugar and hemoglobin A1c level improving, but still not at goal of less than 6 0.5%. She is currently taking Mounjaro0.5 mg weekly,. Tolerating medication very well. Reinforced diabetic diet and regular exercise with patient. Counseled regarding importance of yearly diabetes retinopathy screening. Patient advised to inspect feet daily, for any signs of injury, callus or infection. Compliance with diet and regular exercise again stressed. Blood pressure goal is less than 130/80, goal LDL is less than 100 and goal hemoglobin A1c is less than 7% follow-up appointment made in-6--months, after fasting labs done. Orders: Orders Hemoglobin A1c 03/03/24 E11.9 - Type 2 diabetes mellitus without complications, E55.9 - Vitamin D deficiency, unspecified, E78.5 - Hyperlipidemia, unspecified, F41.1 - Generalized anxiety disorder, I10 - Essential (primary) hypertension, I25.10 - Atherosclerotic heart disease of [place] coronary artery without angina pectoris, Z78.0 - Asymptomatic menopausal state Magnesium 03/03/24 E11.9 - Type 2 diabetes mellitus without complications, E55.9 - Vitamin D deficiency, unspecified, E78.5 - Hyperlipidemia, unspecified, F41.1 - Generalized anxiety disorder, I10 - Essential (primary) hypertension, I25.10 - Atherosclerotic heart disease of [place] coronary artery without angina pectoris, Z78.0 - Asymptomatic menopausal state Lipid Panel 03/03/24 E11.9 - Type 2 diabetes mellitus without complications, E55.9 - Vitamin D deficiency, unspecified, E78.5 - Hyperlipidemia, unspecified, F41.1 - Generalized anxiety disorder, I10 - Essential (primary) hypertension, I25.10 - Atherosclerotic heart disease of [place] coronary artery without angina pectoris, Z78.0 - Asymptomatic menopausal state Alanine Aminotransferase 03/03/24 E11.9 - Type 2 diabetes mellitus without complications, E55.9 - Vitamin D deficiency, unspecified, E78.5 - Hyperlipidemia, unspecified, F41.1 - Generalized anxiety disorder, I10 - Essential (primary) hypertension, I25.10 - Atherosclerotic heart disease of [place] coronary artery without angina pectoris, Z78.0 - Asymptomatic menopausal state Aspartate Amino Transferase 03/03/24 E11.9 - Type 2 diabetes mellitus without complications, E55.9 - Vitamin D deficiency, unspecified, E78.5 - Hyperlipidemia, unspecified, F41.1 - Generalized anxiety disorder, I10 - Essential (primary) hypertension, I25.10 - Atherosclerotic heart disease of [place] coronary artery without angina pectoris, Z78.0 - Asymptomatic menopausal state Basic Metabolic Panel Fasting 03/03/24 E11.9 - Type 2 diabetes mellitus without complications, E55.9 - Vitamin D deficiency, unspecified, E78.5 - Hyperlipidemia, unspecified, F41.1 - Generalized anxiety disorder, I10 - Essential (primary) hypertension, I25.10 - Atherosclerotic heart disease of [place] coronary artery without angina pectoris, Z78.0 - Asymptomatic menopausal state Microalbumin, Random (w Creat) 03/03/24 E11.9 - Type 2 diabetes mellitus without complications, E55.9 - Vitamin D deficiency, unspecified, E78.5 - Hyperlipidemia, unspecified, F41.1 - Generalized anxiety disorder, I10 - Essential (primary) hypertension, I25.10 - Atherosclerotic heart disease of [place] coronary artery without angina pectoris, Z78.0 - Asymptomatic menopausal state Vitamin D 25-OH Total 03/03/24 E11.9 - Type 2 diabetes mellitus without complications, E55.9 - Vitamin D deficiency, unspecified, E78.5 - Hyperlipidemia, unspecified, F41.1 - Generalized anxiety disorder, I10 - Essential (primary) hypertension, I25.10 - Atherosclerotic heart disease of [place] coronary artery without angina pectoris, Z78.0 - Asymptomatic menopausal state Coding Level of Care Code Est Pt Level 4 (77484) Diagnoses Dyslipidemia E78.5 Essential hypertension I10 Generalized anxiety disorder F41.1 Anxiety disorder type: generalized anxiety disorder Vitamin D deficiency E55.9 CAD (coronary artery disease) I25.10 Type 2 diabetes mellitus without complication, without long-term current use of insulin E11.9 Additional Codes KECIA-7 Assessment Billing - KECIA-7 Assessment Tool: KECIA-7 Assessment 48318 ([id number])
[2023-10-25 09:20] VITALS: BP 100/68; PULSE 66; O2SAT 95; BMI 46.3
== END 2023-10-25 10:16 | disposition home or self-care (01) ==
PROVIDERS: PCP Internal Medicine; Visit Provider Internal Medicine
DX: E11.69 Type 2 diabetes mellitus with other specified complication (principal); E78.5 Hyperlipidemia, unspecified; I10 Essential (primary) hypertension; F41.1 Generalized anxiety disorder; E55.9 Vitamin D deficiency, unspecified; I25.10 Atherosclerotic heart disease of native coronary artery without angina pectoris
CPT/HCPCS: 99214

== ENCOUNTER 2024-02-22 08:10 | Outpatient (REF) | payer MEDICARE, SELFPAY ==
[2024-02-22 10:31] LABS: Estimated Average Glucose 114 mg/dL; Hemoglobin A1c % 5.6 % (<6.0)
[2024-02-22 10:57] LABS: Alanine Aminotransferase 9 U/L (0-31); Anion Gap 9 (12-20); Aspartate Amino Transferase 16 U/L (5-31); Blood Urea Nitrogen 14 mg/dL (9-16); Calcium 9.5 mg/dL (8.4-10.2); Carbon Dioxide 31 mmol/L (22-29); Chloride 104 mmol/L (96-108); Cholesterol 145 mg/dL (<200); Estimated Glomerular Filt Rate > 60; Glucose Fasting 122 mg/dL (60-99); HDL Cholesterol 41 mg/dL (>40); LDL Cholesterol Calculated 87 mg/dL (<100); Magnesium 2.3 mg/dL (1.6-2.6); Potassium 4.4 mmol/L (3.3-5.1); Sodium 140 mmol/L (135-145); Triglycerides 89 mg/dL (<150)
[2024-02-22 10:59] LABS: Vitamin D 25-OH Total 31.2 ng/mL (>30)
[2024-02-22 11:03] LABS: Microalbum/Creatinine Ratio Ur 6.4 ug/mg cr (<30)
== END 2024-02-22 08:11 | disposition home or self-care (01) ==
LOC: HO.HMGCLDS 08:10
PROVIDERS: PCP Internal Medicine; Visit Provider Internal Medicine
DX: E11.9 Type 2 diabetes mellitus without complications (principal); I25.10 Atherosclerotic heart disease of native coronary artery without angina pectoris; E55.9 Vitamin D deficiency, unspecified; F41.1 Generalized anxiety disorder; I10 Essential (primary) hypertension; E78.5 Hyperlipidemia, unspecified; Z78.0 Asymptomatic menopausal state
CPT/HCPCS: 36415; 80048; 80061; 82043; 82306; 82570; 83036; 83735; 84450; 84460

== ENCOUNTER 2024-03-17 09:06 | Outpatient (AMB) | payer MEDICARE, SELFPAY ==
[2024-03-17 09:50] VITALS: BP 100/64; PULSE 71; O2SAT 96; BMI 42.4
--- NOTE | 2024-03-17 09:50 | MHC.PC.OV ---
Vital Signs 03/17/24 09:50 Height 5 ft Weight 217 lb BMI 42.4 BP 100/64 Blood Pressure Location Rt brachial Position Sitting Pulse 71 Pulse Source Pulse Oximeter Pulse Oximetry (%) 96 Oxygen Delivery Method Room Air Intake Visit Reasons: f/u lipids weight HTN and glucose Intake Note: Pt is here today for her f/u lipids, weight, HTN and glucose Allergies adhesive tape Allergy (Intermediate, Verified 03/20/24 01:04) BLISTERS/LOCALIZED ITCHING codeine [CODEINE] Allergy (Intermediate, Verified 03/20/24 01:04) RASH, stomach upset Rdxzgio-YWQ-YyT Reductase Inhibitor [SUYJGOL-OBE-LLG REDUCTASE INHIBITOR] Adverse Reaction (Intermediate, Verified 03/20/24 01:04) MYALGIAS Medication List - Last Reconciled 03/20/24 by Faustina Chung MD aspirin 81 mg PO DAILY citalopram 20 mg PO DAILY ezetimibe 10 mg PO DAILY lisinopril 10 mg PO DAILY lorazepam 0.5 - 1 mg PO DAILY PRN magnesium oxide 400 mg PO DAILY metoprolol succinate ER 100 mg PO DAILY rosuvastatin 5 mg PO Q2D tirzepatide (Mounjaro) 5 mg subcut QWEEK Tobacco use date assessed: 03/17/24 Fall risk assessment: No Falls in past year Last assessed Fall Risk: 03/17/24 Dental Screening Did you have a dental visit in the last 12 months?: Yes Did you have a dental problem in the last 6 months where you did not have access to dental care?: No Was dental information given to patient?: Patient has dentist HPI f/u lipids weight HTN and glucose HPI Details 73-year-old lady here for follow-up on her 2 diabetes mellitus, hypertension, dyslipidemia and anxiety disorder, presents today for her follow-up. Latest fasting labs showed hemoglobin A1 at 6.2% with fasting lipids within normal limits. She has been feeling well no complaints at present time. [facility] Medical History Type 2 diabetes mellitus without complication, without long-term current use of insulin Ocular herpes simplex Macular degeneration Degenerative joint disease of knee, left CAD (coronary artery disease) Vitamin D deficiency Menopause Anxiety disorder Non-ST elevation myocardial infarction (NSTEMI) Essential hypertension Dyslipidemia Endometrial carcinoma Surgical History H/O heart artery stent History of total right knee replacement History of tonsillectomy History of hysterectomy History of 2 sections Family History Father CVD (cardiovascular disease) Mother Hyperlipemia Manic depression Mental illness in member of household Mental health disorder Sister Stroke Manic depression History of mental problems Son Drug addiction Substance use disorder Daughter No problems noted. Social History Household Members: Family Housing: Apartment Do you presently have visiting nurse or other home services: No Alcohol intake: never Patient Tobacco Use Status: Never used Tobacco e-Cigarette/Vaping Use: Never Used Advance Directives Date on File: 05/09/22 service: No Current occupational status: retired and disabled Cognitive needs: No Hearing needs: Yes Vision needs: Yes Questionnaire PHQ-9 Over the last 2 weeks, how often have you been bothered by any of the following problems? 1. Little interest or pleasure in doing things: not at all 2. Feeling down, depressed, or hopeless: not at all 3. Trouble falling or staying asleep, or sleeping too much: not at all 4. Feeling tired or having little energy: not at all 5. Poor appetite or overeating: not at all 6. Feeling bad about yourself - or that you are a failure or have let yourself or your family down: not at all 7. Trouble concentrating on things, such as reading the newspaper or watching television: not at all 8. Moving or speaking so slowly that other people could have noticed. Or the opposite - being so fidgety or restless that you have been moving around a lot more than usual: not at all 9. Thoughts that you would be better off or of hurting yourself in some way: not at all Total score: 0 Depression Screening Interpretation: Negative Depression Screening Done: Yes 34461 - PHQ-9 Billing: Yes Source: Developed by Drs. Emery Smith, Jaquelin Bernard, Harry Gaviria and colleagues, with an educational riaz from [employer]. Thrive Questionnaire Date Thrive assessed: 03/17/24 I am a: Patient What is your living situation today?: I have a steady place to live Within the past 12 months, did the food you bought not last and you didn't have the money to get more?: Never true Within the past 12 months, did you worry whether your food would run out before you got money to buy more?: Never true Do you have trouble paying for medicines?: No Do you have trouble getting transportation to medical appointments?: No Do you have trouble paying your heating and electricity bill?: No Do you have trouble taking care of your child, family member or friend?: No Do you have trouble with day-to-day activities such as bathing, preparing meals, shopping, managing finances, etc.?: No Are you interested in more education?: No Please select the resources that you would like help with: None Currently or been in a relationship where the following occur: No concerns reported THRIVE Score: 0 AUDIT C Alcohol Use Questionnaire (AUDIT-C) 1. How often do you have a drink containing alcohol?: Never Total Score: 0 KECIA-7 AMB Questionnaire KECIA-7 Date KECIA - 7 assessed: 03/17/24 Feeling nervous, anxious, or on edge: 0 = Not at all Not being able to stop or control worryin = Not at all Worrying too much about different things: 0 = Not at all Trouble relaxin = Not at all Being so restless that it is hard to sit still: 0 = Not at all Becoming easily annoyed or irritable: 0 = Not at all Feeling afraid as if something awful might happen: 0 = Not at all Total KECIA-7 score (0-4 normal; 5-9 mild; 10-14 moderate; 15-21 severe): 0 Source: Developed by Drs. Emery Smith, Jaquelin Bernard, Harry Gaviria and colleagues, with an educational riaz from [employer]. KECIA-7 Assessment Billing KECIA-7 Assessment Tool: KECIA-7 Assessment 23952 Review of Systems Const Denies body aches, Denies fatigue, Denies fever(s), Denies headache(s) and Denies weakness Eyes Denies change in vision ENT Denies dizziness, Denies headache(s), Denies nasal congestion, Denies nasal discharge and Denies sore throat Card Denies chest pain, Denies lightheadedness, Denies palpitations and Denies dyspnea Resp Denies chest congestion, Denies cough, Denies dyspnea and Denies wheezing GI Denies abdominal pain, Denies change in bowel habits and Denies heartburn Denies urinary frequency, Denies dysuria and Denies urinary urgency Musc Denies myalgias, Denies arthralgias, Denies joint swelling and Denies muscle weakness Skin/Breast Denies lesions and Denies rash Neuro Denies dizziness, Denies headache(s) and Denies weakness Psych Reports no additional complaints Endo Denies fatigue, Denies polydipsia, Denies polyuria and Denies palpitations Mayito/Lymph Denies easy bruising Aller/Immun Denies seasonal rhinorrhea and Denies wheezing Physical exam (Primary Care) Vital Signs: Last Vital Signs Pulse 71 03/17/24 09:50 BP 100/64 03/17/24 09:50 Pulse Ox 96 03/17/24 09:50 Oxygen Delivery Method Room Air 03/17/24 09:50 BMI result Body Mass Index 42.4 BMI Assessment/Plan discussion: High BMI High, discussed plan: lifestyle, weight reduction, dietary and physical activity Tobacco/Smoking Status: Tobacco use Status Tobacco use date assessed 03/17/24 03/17/24 09:55 Patient Tobacco Use Status Never used Tobacco 03/17/24 09:51 e-Cigarette/Vaping Use Never Used 03/17/24 09:51 PHQ-9: PHQ-9 Score PHQ-9: Total score 0 03/17/24 10:18 Depression Screening Interpretation: Negative Thrive Assessment: Date of Thrive Assessment Date Thrive assessed 03/17/24 03/17/24 09:55 Currently or been in a relationship where the following occur: No concerns reported Const General: cooperative, comfortable and no acute distress Nutritional Appearance: obese Orientation/consciousness: patient oriented x3 HENMT Mouth: Normal oral and palatal mucosa present and moist mucous membranes Eyes General: appearance normal, both eyes and all related structures Neck Neck: Yes full ROM, Yes no lymphadenopathy, Yes no meningeal signs and Yes supple Thyroid: Thyroid normal (Nonpalpable) Resp Effort & Inspection: normal respiratory effort and able to speak in complete sentences Auscultation: clear to auscultation bilaterally Cardio Rate: regular rate Rhythm: regular rhythm Heart sounds: S1 normal heart sound present and S2 normal heart sound present GI Inspection: Yes obesity Palpation (GI): Soft to palpation, nontender and no guarding Auscultation: normal bowel sounds General: Yes no CVA tenderness Back/Spine/Pelvis Back: no CVA tenderness Skin Lesions: no lesions Rashes: no rashes Neuro General: patient oriented x3, gait normal, moves all extremities, no meningeal signs, no focal motor deficits and normal sensation to monofilament Cranial nerves: Yes CN's II-XII intact bilaterally Extrem General: Yes full ROM, Yes no joint enlargement, Yes no pedal edema, Yes no calf tenderness and Yes normal gait Psych Appearance: grossly normal and well kempt Mental Status: mental status grossly normal Speech and movement: Normal speech and movement present Affect: normal affect Results Reviewed Results Reviewed: Laboratory Tests 02/22/24 02/22/24 08:20 08:25 Estimat Average Glucose 114 Hemoglobin A1c % 5.6 Urine Creatinine 339.96 Urine Microalbumin 22.0 Microalb/Creat Ratio 6.4 Name: Elsy Avalos Age/Sex: 73/F : 1950 Unit#: [id number] Attend Dr: Faustina Chung MD Re02/22/24 Status: DEP REF Location: [facility] Disch: SPEC : [id number] JOSE ANGEL: 02/22/24 STATUS: COMP REQ : [id number] RECD: 02/22/[address]: Faustina Chung MD COMP: 02/22/24 ENTERED: 02/22/[address]: ORDERED: Met Prof Fast, MG, AST, ALT, Lipid Panel, Vitamin D 25-OH Test Result Flag Reference Sodium 140 135-145 mmol/L Potassium 4.4 3.3-5.1 mmol/L CL 104 96-108 mmol/L CO2 31 H 22-29 mmol/L Gap 9 L 12-20 BUN 14 9-16 mg/dL Creat 0.80 0.5-1.4 mg/dL EGFR > 60 NOTE: For -[place] individuals, multiply the result by 1.210. Chronic Kidney Disease: Estimated GFR < 60 mL/min/1.73m2 Severe Kidney Disease: Estimated GFR < 15 mL/min/1.73m2 FBS 122 H 60-99 mg/dL A fasting glucose from 100-125 mg/dl is considered impaired (pre-diabetes). CA 9.5 8.4-10.2 mg/dL Magnesium 2.3 1.6-2.6 mg/dL AST (GOT) 16 5-31 U/L ALT (GPT) 9 0-31 U/L Triglyceride 89 <150 mg/dL Desirable Triglyceride: less than 150 mg/dL Borderline High Triglyceride 150-199 mg/dL High Triglyceride: 200-499 mg/dL Very High Triglyceride: greater than or equal to 5OO mg/dL Cholesterol 145 <200 mg/dL Desirable Cholesterol: less than 200 mg/dL Borderline High Cholesterol: 200-239 mg/dL High Cholesterol: greater than 239 mg/dL LDL Calculated 87 <100 mg/dL Desirable LDL: less than 100 mg/dL Near Optimal/Above Optimal LDL: 110-129 mg/dL Borderline High LDL: 130-159 mg/dL High LDL: 160-189 mg/dL Very High LDL: greater than or equal to 190 mg/dL HDL 41 >40 mg/dL Desirable HDL: greater than 40 mg/dL Note: This HDL assay may give artificially low results in patients with liver disease. Vit D 25-OH Tot 31.2 >30 ng/mL Health Based Reference Values* < 20 ng/mL Deficient 20-30 ng/mL Insufficient > 30 ng/mL Sufficient Assessment and Plan Assessment & Plan (1) Dyslipidemia: Code(s): E78.5 - Hyperlipidemia, unspecified Plan: Reviewed recent fasting lipid profile with patient with levels within normal limits . Continue rosuvastatin 5 mg 1 tablet every 2 days , in addition to adherence to low-cholesterol diet and regular exercise, at least 30 minutes 3 to 4 times a week. Advised patient to make healthy food choices, eat more fruits, vegetables, whole grains, wild caught fish and low-fat dairy. Limit amount of meat and fried or fatty food products, as well as processed foods and fast foods. Follow-up scheduled with repeat fasting lipid panel in 4 months. (2) Essential hypertension: Code(s): I10 - Essential (primary) hypertension Plan: Blood pressure well controlled on present treatment, will continue (3) Type 2 diabetes mellitus without complication, without long-term current use of insulin: Code(s): E11.9 - Type 2 diabetes mellitus without complications Plan: Recent lab results reviewed with patient, with sugar and hemoglobin A1c stable and at goal continue to check fasting blood sugar at home, maintain log and bring to next appointment for review. Reinforced diabetic diet and regular exercise with patient. Counseled regarding importance of yearly diabetes retinopathy screening. Patient advised to inspect feet daily, for any signs of injury, callus or infection. Compliance with diet and regular exercise again stressed. Blood pressure goal is less than 130/80, goal LDL is less than 100 and goal hemoglobin A1c is less than 7% follow-up appointment made in-4--months, after fasting labs done. Orders: Orders Hemoglobin A1c 07/02/24 E11.9 - Type 2 diabetes mellitus without complications, E55.9 - Vitamin D deficiency, unspecified, E78.5 - Hyperlipidemia, unspecified, I10 - Essential (primary) hypertension, I25.10 - Atherosclerotic heart disease of [place] coronary artery without angina pectoris, Z78.0 - Asymptomatic menopausal state Alanine Aminotransferase 07/02/24 E11.9 - Type 2 diabetes mellitus without complications, E55.9 - Vitamin D deficiency, unspecified, E78.5 - Hyperlipidemia, unspecified, I10 - Essential (primary) hypertension, I25.10 - Atherosclerotic heart disease of [place] coronary artery without angina pectoris, Z78.0 - Asymptomatic menopausal state Lipid Panel 07/02/24 E11.9 - Type 2 diabetes mellitus without complications, E55.9 - Vitamin D deficiency, unspecified, E78.5 - Hyperlipidemia, unspecified, I10 - Essential (primary) hypertension, I25.10 - Atherosclerotic heart disease of [place] coronary artery without angina pectoris, Z78.0 - Asymptomatic menopausal state Basic Metabolic Panel Fasting 07/02/24 E11.9 - Type 2 diabetes mellitus without complications, E55.9 - Vitamin D deficiency, unspecified, E78.5 - Hyperlipidemia, unspecified, I10 - Essential (primary) hypertension, I25.10 - Atherosclerotic heart disease of [place] coronary artery without angina pectoris, Z78.0 - Asymptomatic menopausal state Aspartate Amino Transferase 07/02/24 E11.9 - Type 2 diabetes mellitus without complications, E55.9 - Vitamin D deficiency, unspecified, E78.5 - Hyperlipidemia, unspecified, I10 - Essential (primary) hypertension, I25.10 - Atherosclerotic heart disease of [place] coronary artery without angina pectoris, Z78.0 - Asymptomatic menopausal state Coding Level of Care Code Est Pt Level 4 (58707) Complex EM visit Add On G2211 Diagnoses Dyslipidemia E78.5 Essential hypertension I10 Type 2 diabetes mellitus without complication, without long-term current use of insulin E11.9 Additional Codes KECIA-7 Assessment Billing - KECIA-7 Assessment Tool: KECIA-7 Assessment 93097 ([id number])
== END 2024-03-17 11:21 | disposition home or self-care (01) ==
PROVIDERS: PCP Internal Medicine; Visit Provider Internal Medicine
DX: E78.5 Hyperlipidemia, unspecified (principal); I10 Essential (primary) hypertension; E11.9 Type 2 diabetes mellitus without complications

== ENCOUNTER → 2024-03-17 09:06 | Outpatient (BNVA) | payer MEDICARE, SELFPAY | PROVIDERS: PCP Internal Medicine; Visit Provider Internal Medicine | DX: E78.5 Hyperlipidemia, unspecified (principal); I10 Essential (primary) hypertension; E11.9 Type 2 diabetes mellitus without complications | CPT/HCPCS: 96127; 99212 ==

== ENCOUNTER 2024-07-23 08:32 | Outpatient (REF) | payer MEDICARE, SELFPAY ==
[2024-07-23 10:58] LABS: Estimated Average Glucose 117 mg/dL; Hemoglobin A1C 134.1022 umol/L; Hemoglobin A1c % 5.7 % (<6.0); Total Hemoglobin (HGBA1C) 3458.7501 umol/L
[2024-07-23 11:02] LABS: Alanine Aminotransferase 7 U/L (0-31); Anion Gap 6 (12-20); Aspartate Amino Transferase 21 U/L (5-31); Blood Urea Nitrogen 24 mg/dL (9-16); Calcium 9.3 mg/dL (8.4-10.2); Carbon Dioxide 32 mmol/L (22-29); Chloride 106 mmol/L (96-108); Cholesterol 152 mg/dL (<200); Estimated Glomerular Filt Rate > 60; Glucose Fasting 102 mg/dL (60-99); HDL Cholesterol 45 mg/dL (>40); LDL Cholesterol Calculated 93 mg/dL (<100); Potassium 4.6 mmol/L (3.3-5.1); Sodium 139 mmol/L (135-145); Triglycerides 74 mg/dL (<150)
== END 2024-07-23 08:33 | disposition home or self-care (01) ==
LOC: HO.HMGCLDS 08:32
PROVIDERS: PCP Internal Medicine; Visit Provider Internal Medicine
DX: I25.10 Atherosclerotic heart disease of native coronary artery without angina pectoris (principal); E11.9 Type 2 diabetes mellitus without complications; E55.9 Vitamin D deficiency, unspecified; I10 Essential (primary) hypertension; E78.5 Hyperlipidemia, unspecified; Z78.0 Asymptomatic menopausal state
CPT/HCPCS: 36415; 80048; 80061; 83036; 84450; 84460

== ENCOUNTER 2024-07-24 10:41 | Outpatient (AMB) | payer MEDICARE, SELFPAY ==
[2024-07-24 10:43] VITALS: BP 120/62; PULSE 68; RESP 16; TEMP 36.7; O2SAT 96; BMI 43.0
--- NOTE | 2024-07-24 10:43 | A.OFFVIS_ITS ---
Intake Vital Signs 07/24/24 10:43 Height 5 ft Weight 220 lb BMI 43.0 BP 120/62 Blood Pressure Location Lt brachial Position Sitting Respiration 16 Pulse 68 Pulse Source Pulse Oximeter Temp 98.0 F Temp Source Oral Pulse Oximetry (%) 96 Oxygen Delivery Method Room Air Intake Visit Reasons: Annual wellness visit Intake Note: Pt is here today for her AWV Allergies adhesive tape Allergy (Intermediate, Verified 07/24/24 10:58) BLISTERS/LOCALIZED ITCHING codeine [CODEINE] Allergy (Intermediate, Verified 07/24/24 10:58) RASH, stomach upset Zzijiza-REG-XyR Reductase Inhibitor [SUKGCNV-FIT-YUB REDUCTASE INHIBITOR] Adverse Reaction (Intermediate, Verified 07/24/24 10:58) MYALGIAS Medication List - Last Reconciled 07/24/24 by Faustina Chung MD aspirin 81 mg PO DAILY citalopram 20 mg PO DAILY ezetimibe 10 mg PO DAILY lisinopril 10 mg PO DAILY lorazepam 0.5 - 1 mg PO DAILY PRN magnesium oxide 400 mg PO DAILY metoprolol succinate ER 100 mg PO DAILY rosuvastatin 5 mg PO Q2D tirzepatide (Mounjaro) 5 mg subcut QWEEK HPI Annual wellness visit HPI Details SWV ? 74 year-old lady with past medical history significant for macular degeneration, legally blind, no longer followed by Ophthalmology, has type 2 diabetes mellitus without complication on or long-term insulin use, has coronary artery disease, essential hypertension, dyslipidemia, presents for her ? Annual Wellness Visit, subsequent visit. She is up-to-date with her screening mammogram done on 02/19/2023 with normal findings, refused getting bone density scan screening. Patient states that she will call and schedule an appointment with [facility] for her screening mammogram which she missed last year No longer gets Pap smears, last colonoscopy was done 03/30/2020, due again in 2024 due to history of adenomatous polyps in the past. Had a lipid screening done and diabetes mellitus done 07/23/2024 both of which showed normal results ,with a hemoglobin A1c at 5.7%. She has had COVID vaccines in the past does not want to get the booster, does not want to get further flu vaccine, shingles vaccine tetanus booster or RSV vaccination, is up-to-date with her pneumococcal vaccines .? Medical / Social History Rev iewed? Past Medical History ?Yes . ? [place] of Care / Care Team list updated ?Yes . ? Surgical/Hospitalization History ?Yes . ? Current Medications (including OTC and supplements) ?Yes . ? Family History ?Yes . ? Tobacco Control form ?Yes . ? AUDIT-C (Alcohol use) form ?Yes . ? Illicit drug use in Social History ?Yes . ? Current diagnosis of depression? ?No ? Appropriate PHQ2/PHQ9 completed ?Yes . ? Data entered by ?Loan Officer and reviewed by provider ? Fall Risk ? Fall History? Have you had any falls with injury in the past year? ?Tripped on a dog toy on the floor a week ago, no injury ? Have you had two or more falls in the past year? ?No . ? Fall Risk Assessment: 1. ? HRA filled out by the patient, reviewed by Provider and scanned. ? AWV ? Balance? Romberg ?negative ? Tandem walk ?able to do ? Walk and Turn ?Yes . ? Rise from sit to stand ?Yes . ?Vision? Corrective lens ?no, declared legally blind by Dr. Garcia due to macular degeneration ?Hearing? Whisper test ?pass . ?Written Plan?Completed. See Patient Documents.? [facility] Medical History History of adenomatous and serrated colon polyps Type 2 diabetes mellitus without complication, without long-term current use of insulin Ocular herpes simplex Macular degeneration Degenerative joint disease of knee, left CAD (coronary artery disease) Vitamin D deficiency Menopause Anxiety disorder Non-ST elevation myocardial infarction (NSTEMI) Essential hypertension Dyslipidemia Endometrial carcinoma Surgical History H/O heart artery stent History of total right knee replacement History of tonsillectomy History of hysterectomy History of 2 sections Family History Father CVD (cardiovascular disease) Mother Hyperlipemia Manic depression Mental illness in member of household Mental health disorder Sister Stroke Manic depression History of mental problems Son Drug addiction Substance use disorder Daughter No problems noted. Social History Household Members: Family Housing: Apartment Do you presently have visiting nurse or other home services: No Alcohol intake: never Patient Tobacco Use Status: Never used Tobacco e-Cigarette/Vaping Use: Never Used Advance Directives Date on File: 05/09/22 service: No Current occupational status: retired and disabled Cognitive needs: No Hearing needs: Yes Vision needs: Yes Questionnaire Medicare Wellness Checkup What [age] What gender do you identify with?: female During the past 4 weeks, how much have you been bothered by emotional problems such as feeling anxious, depressed, irritable, sad or downhearted, and blue?: not at all During the past 4 weeks, has your physical & emotional health limited your social activities with family, friends, neighbors, or groups?: not at all During the past 4 weeks, how much bodily pain have you generally had?: no pain During the past 4 weeks, was someone available to help you if you needed & wanted help?: yes, as much as I wanted During the past 4 weeks, what was the hardest physical activity you could do for at least 2 minutes?: moderate Can you get to places out of walking distance without help? (For eg., can you travel alone on buses, taxis or drive your car?): Yes Can you go shopping for groceries or clothes without someone's help?: Yes Can you prepare your own meals?: Yes Can you do your housework without help?: Yes Because of any health problems, do you need the help of another person with your personal care needs such as eating, bathing, dressing or getting around the house?: No Can you handle your own money without help?: Yes During the past 4 weeks, how would you rate your health in general?: good During the past 4 weeks how have things been going for you?: very well; could hardly better Are you having difficulties driving your car?: not applicable, I don't use a car Do you always fasten your seat belt when you are in a car?: yes, usually During past 4 weeks, have you been bothered by the following: never: Sexual problems?, Trouble eating well?, Teeth or denture problems?, Problems using the telephone? and Tiredness or fatigue? and sometimes: Falling or dizzy when standing up Have you fallen 2 or more times in the past year?: No Are you afraid of falling?: No Are you a smoker?: no During the past 4 weeks, how many drinks of wine, beer, or other alcoholic beverages did you have?: no alcohol at all Do you exercise for about 20 minutes 3 or more times a week?: no, I usually do not exercise this much Have you been given information to help with the following?: no: Hazards in your house that might hurt you? and no: Keeping track of your medications? How often do you have trouble taking medicines the way you have been told to take them?: I always take medicine as prescribed How confident are you that you can control & manage most of your health problems?: very confident What is your race?: White Mini Mental State Exam (MMSE) Orientation What is the (year) (season) (date) (day) (month)?: year (2024), season (winter), date (07/24/2024), day () and month (July) Where are we (state) (county) (town or city) (hospital) (floor)?: state ([place]), county ([place]), town or city ([place]) and hospital/clinic ([facility]) Score Score: 9 Activity of Daily Living Bathing - sponge bath, tub bath or shower: receives no assistance (gets in/out by self, if usual bathing means Dressing - getting clothes from closets & drawers, including inner/outer garments & fasteners.: gets clothes & gets completely dressed without help Toileting - going to the 'toilet room' for urine/bowel elimination & cleaning self/arranging clothes: goes to toilet room, cleans self, arranges clothes without help Transfer: moves in & out of bed and chair without help (may use support object) Continence: controls urination/bowel movements completely by self Feeding: feeds self without help Total Score: 0 Information obtained from: patient Using telephone: independent Traveling: dependent Shopping: needs assistance Preparing meals: independent Housework: independent Taking medicine: independent Managing money: dependent PHQ-9 Over the last 2 weeks, how often have you been bothered by any of the following problems? 1. Little interest or pleasure in doing things: not at all 2. Feeling down, depressed, or hopeless: not at all 3. Trouble falling or staying asleep, or sleeping too much: not at all 4. Feeling tired or having little energy: not at all 5. Poor appetite or overeating: not at all 6. Feeling bad about yourself - or that you are a failure or have let yourself or your family down: not at all 7. Trouble concentrating on things, such as reading the newspaper or watching television: not at all 8. Moving or speaking so slowly that other people could have noticed. Or the opposite - being so fidgety or restless that you have been moving around a lot more than usual: not at all 9. Thoughts that you would be better off or of hurting yourself in some way: not at all Total score: 0 Depression Screening Interpretation: Negative Depression Screening Done: Yes 74415 - PHQ-9 Billing: Yes Source: Developed by Drs. Emery Smith, Jaquelin Bernard, Harry Gaviria and colleagues, with an educational riaz from [employer]. Physical Exam Vital Signs: Last Vital Signs Temp 98.0 F 07/24/24 10:43 Pulse 68 07/24/24 10:43 Resp 16 07/24/24 10:43 BP 120/62 07/24/24 10:43 Pulse Ox 96 07/24/24 10:43 Oxygen Delivery Method Room Air 07/24/24 10:43 BMI result Body Mass Index 43.0 Results Reviewed Results Reviewed: Laboratory Tests 02/22/24 07/23/24 08: 08:35 Estimat Average Glucose 117 Hemoglobin A1c % 5.7 Microalb/Creat Ratio 6.4 Name: Elsy Avalos Age/Sex: 74/F : 1950 Unit#: [id number] Attend Dr: Faustina Chung MD Re07/23/24 Status: DEP [facility]: SPEC : [id number] JOSE ANGEL: 07/23/24 STATUS: COMP REQ : [id number] RECD: 07/23/24-[address]: Faustina Chung MD COMP: 07/23/242 ENTERED: 07/23/24-[address] [facility] [address]: ORDERED: Met Prof Fast, AST, ALT, Lipid Panel Test Result Flag Reference Sodium 139 135-145 mmol/L Potassium 4.6 3.3-5.1 mmol/L CL 106 96-108 mmol/L CO2 32 H 22-29 mmol/L Gap 6 L 12-20 BUN 24 H 9-16 mg/dL Creat 0.79 0.5-1.4 mg/dL eGFR > 60 Chronic Kidney Disease: Estimated GFR < 60 mL/min/1.73m2 Severe Kidney Disease: Estimated GFR < 15 mL/min/1.73m2 FBS 102 H 60-99 mg/dL A fasting glucose from 100-125 mg/dl is considered impaired (pre-diabetes). CA 9.3 8.4-10.2 mg/dL AST (GOT) 21 5-31 U/L ALT (GPT) 7 0-31 U/L Triglyceride 74 <150 mg/dL Desirable Triglyceride: less than 150 mg/dL Borderline High Triglyceride 150-199 mg/dL High Triglyceride: 200-499 mg/dL Very High Triglyceride: greater than or equal to 5OO mg/dL Cholesterol 152 <200 mg/dL Desirable Cholesterol: less than 200 mg/dL Borderline High Cholesterol: 200-239 mg/dL High Cholesterol: greater than 239 mg/dL LDL Calculated 93 <100 mg/dL Desirable LDL: less than 100 mg/dL Near Optimal/Above Optimal LDL: 110-129 mg/dL Borderline High LDL: 130-159 mg/dL High LDL: 160-189 mg/dL Very High LDL: greater than or equal to 190 mg/dL HDL 45 >40 mg/dL Desirable HDL: greater than 40 mg/dL Note: This HDL assay may give artificially low results in patients with liver disease. Assessment & Plan Assessment & Plan (1) Encounter for subsequent annual wellness visit (AWV) in Medicare patient: Code(s): Z00.00 - Encounter for general adult medical examination without abnormal findings Plan: Medical wellne checklist reviewed, discussed with patient updated. Patient states she will schedule own screening mammogram at [facility], d oes not want to get further bone density scans. Referred to [facility] for her repeat colonoscopy screening. Patient refuses to get any further vaccines. (2) History of adenomatous and serrated colon polyps: Code(s): Z86.0101 - Personal history of adenomatous and serrated colon polyps Plan: Referred back to [facility] for her repeat colonoscopy (3) Type 2 diabetes mellitus without complication, without long-term current use of insulin: Code(s): E11.9 - Type 2 diabetes mellitus without complications Plan: Latest hemoglobin A1c 5.7%, continued on Mounjaro 5 mg once a week (4) Macular degeneration: Comment: Followed by Dr. Garcia Code(s): H35.30 - Unspecified macular degeneration Qualifiers: Macular degeneration type: unspecified type Eye laterality: bilateral Qualified Code(s): H35.30 - Unspecified macular degeneration Plan: No longer sees Ophthalmology (5) Degenerative joint disease of knee, left: Comment: followed by Dr. ruggiero Code(s): M17.12 - Unilateral primary osteoarthritis, left knee Plan: Followed by Dr. Ruggiero (6) CAD (coronary artery disease): Comment: No longer being seen by Cardiology, patient refuses further follow-ups Code(s): I25.10 - Atherosclerotic heart disease of [place] coronary artery without angina pectoris Plan: Continue aspirin and metoprolol (7) Anxiety disorder: Code(s): F41.9 - Anxiety disorder, unspecified Qualifiers: Anxiety disorder type: generalized anxiety disorder Qualified Code(s): F41.1 - Generalized anxiety disorder Plan: Stable and controlled on citalopram, continue 20 mg daily, takes lorazepam as needed for acute anxiety attacks (8) Essential hypertension: Code(s): I10 - Essential (primary) hypertension Plan: Hypertension stable controlled on metoprolol succinate ER 100 mg daily and lisinopril 10 mg daily (9) Dyslipidemia: Code(s): E78.5 - Hyperlipidemia, unspecified Plan: Fasting lipids are within normal limits, continue with ezetimibe 10 mg daily and rosuvastatin 5 mg taken 1 tablet every other day Orders: Referrals Gastroenterology Referral Z86.0101 - Personal history of adenomatous and serrated colon polyps Quality Reporting (2020) Depression/Bipolar (159/160/161/177) PHQ-9: Total score: 0 Coding Level of Care Code Medicare Subsequent (G0439) Diagnoses Encounter for subsequent annual wellness visit (AWV) in Medicare patient Z00.00 History of adenomatous and serrated colon polyps Z86.0101 Type 2 diabetes mellitus without complication, without long-term current use of insulin E11.9 Macular degeneration of both eyes, unspecified type H35.30 Macular degeneration type: unspecified type Eye laterality: bilateral Degenerative joint disease of knee, left M17.12 CAD (coronary artery disease) I25.10 Generalized anxiety disorder F41.1 Anxiety disorder type: generalized anxiety disorder Essential hypertension I10 Dyslipidemia E78.5 CPT Codes Advance Care Planning - Advance Care Planning discussion: On file, no changes ([id number]) Advance Care Planning - Time spent: 1-15 minutes, on File ([id number]) Additional Codes PHQ-9 - 65291 - PHQ-9 Billing: Yes ([id number]) Advance Care Planning Advance Care Planning discussion: On file, no changes Date of discussion: 07/24/24 Who was present: Patient Forms completed: Health Care Proxy and MOLST Time spent: 1-15 minutes, on File Actual minutes spent: 1
== END 2024-07-24 11:30 | disposition home or self-care (01) ==
PROVIDERS: PCP Internal Medicine; Visit Provider Internal Medicine
DX: Z00.00 Encounter for general adult medical examination without abnormal findings (principal); Z86.0101 Personal history of adenomatous and serrated colon polyps; E11.69 Type 2 diabetes mellitus with other specified complication; H35.30 Unspecified macular degeneration; M17.12 Unilateral primary osteoarthritis, left knee; I25.10 Atherosclerotic heart disease of native coronary artery without angina pectoris; F41.1 Generalized anxiety disorder; I10 Essential (primary) hypertension; E78.5 Hyperlipidemia, unspecified

== ENCOUNTER → 2024-07-24 10:41 | Outpatient (BNVA) | payer MEDICARE, SELFPAY | PROVIDERS: PCP Internal Medicine; Visit Provider Internal Medicine | DX: Z00.00 Encounter for general adult medical examination without abnormal findings (principal); E11.9 Type 2 diabetes mellitus without complications; H35.30 Unspecified macular degeneration; M17.12 Unilateral primary osteoarthritis, left knee; I25.10 Atherosclerotic heart disease of native coronary artery without angina pectoris; I10 Essential (primary) hypertension; F41.1 Generalized anxiety disorder; E78.5 Hyperlipidemia, unspecified; Z86.0101 Personal history of adenomatous and serrated colon polyps | CPT/HCPCS: 96127 ==

== ENCOUNTER 2025-06-30 08:58 | Outpatient (REF) | payer MEDICARE, SELFPAY ==
--- OUTSIDE RECORDS SUMMARY | 2024-02-05 03:00 | XMS_ITS ---
Author Organization [facility] Address [address] [place] [id number] Care Team Providers Care Shift Coordinator Name Role Phone Sheldon [place], Faustina Corrigan Primary Care Provider Un available Yung Selam Unavailable [phone] REASON FOR VISIT per dr gongora Encounters Encounter Location Date Provider Diagnosis [address] [address] 02/05/2024 Selam Gongora Plan Of Treatment Next Appt Details Provider Name:Selam Gongora , 07/08/2025 08:15:00 AM, [address] [place] [address], [id number], Provider Name:Selam Gongora , 09/09/2025 08:00:00 AM, [address] [place] [address], [id number], Progress Notes * Elsy ADAMSON LDOB: [birth year] (75 yo F)Acc No.[id number]:02/05/2024 Progress Notes Patient: Elsy HARDY Provider: Homa Gongora DPM :1950 A ge:73 Y S ex:Female Date:02/05/2024 Address:[address] [place] [address] [address] [facility] Pcp:Dwayne Bolanos Subjective: * Chief Complaints: * [address] gongora. * Medical History: Objective: * Vitals: Assessment: Plan: * Treatment: * Images: * The named appointment provid er may or may not be the originator of this progress note, and it is not deemed complete until electronically signed by the appointment provider. Sign off status: Pending * Provider: Homa Gongora DPM Date: 0 02/05/2024 Generated for Gale hernandez/Jose Alejandro on: 11:08 AM EST
--- OUTSIDE RECORDS SUMMARY | 2024-09-30 03:00 | XMS_ITS ---
Author Organization [facility] Address [address] [place] [address] Care Team Providers Care Heater Operator Name Role Phone Sheldon WASHINGTON, Faustina Corrigan Primary Care Provider Un available Selam Barragan Unavailable [phone] Medications Medication SIG (Take, Route, Frequency, Duration) Notes Start Date End Date Status LamISIL AT 1 % 1 application to affected area Externally Twice a day to affected areas on feet; Duration: 30 days 09/04/2023 Not-Taking vitamin Active Aleve Not-Taking Tylenol Active Cephalexin 500 MG 1 capsule Orally twi ce a day; Duration: 10 days 04/25/2023 Not-Takin g Toprol XL Active LORazepam Active Zetia 10 MG 1 tablet Orally Once a day Active Ciclopirox Olamine 0.77 % 1 application Externally Twice a day; Duration: 30 days Not-Taking Cephalexin 500 MG 1 capsule Orally twi ce a day; Duration: 10 days 01/22/2024 Not-Takin g Fish Oil Active Aspirin Active Lisinopril Active Encounters [facility] [place] [address] [place] [address] 09/30/2024 Selam Barragan Plan Of Treatment Next Appt Details Provider Name:Selam Barragan , 07/08/2025 08:15:00 AM, [address] [place], [address], Provider Name:Selam Barragan , 09/09/2025 08:00:00 AM, [address] [place], [address], Progress Notes * Elsy ADAMSON LDOB: [birth year] (75 yo F)Acc No.[id number]:09/30/2024 Progress Note Patient: Elsy HARDY Provider: Homa Barragan DPM :1950 A ge:74 Y S ex:Female Date:09/30/2024 Address:[address] [place], [place] [id number] Pcp:Dwayne Bolanos Subjective: * Chief Complaints: * * Medical History: * Medications: T aking Tylenol , Taking vitamin , Taking Aspirin , Taking Fish Oil , Taking Lisinopril , Taking Toprol XL , Taking Zetia 10 MG Tablet 1 tablet Orally Once a day , Taking LORazepam , Not-Taking/PRN Cephalexin 500 MG Capsule 1 capsule Orally twice a day , Not-Taking/PRN Ciclopirox Olamine 0.77 % Cream 1 application Externally Twice a day , Not-Taking/PRN LamISIL AT 1 % Cream 1 application to affected area Externally Twice a day to affected areas on feet , Not-Taking/PRN Cephalexin 500 MG Capsule 1 capsule Orally twice a day , Not-Taking/PRN Aleve Objective: * Vitals: Assessment: Plan: * Treatment: * Images: * The named appointment provid er may or may not be the originator of this progress note, and it is not deemed complete until electronically signed by the appointment provider. Sign off status: Pending * Provider: Homa Barragan DPM Date: 0 09/30/2024 Generated for Gale hernandez/Laly/Arianaitting on: 11:08 AM EST
[2025-06-30 10:43] LABS: Microalbum/Creatinine Ratio Ur 4.2 ug/mg cr (<30)
--- OUTSIDE RECORDS SUMMARY | 2025-06-30 11:08 | XMS_ITS | Patient Health Record ---
[facility] lawrence Gordon Address [address] [place] [address] Care Team Providers Care Drama Critic Name Role Phone Sheldon W[place], Faustina Corrigan Primary Care Provider Un available Black, Selam Unavailable [phone] Allergies Allergen (clinical drug ingredient) Drug/Non Drug Allergy documented on EMR Reaction Allergy Type Onset Date Status Statins Support severe cramping Drug Allergy Active codeine Codeine Unknown Drug Allergy Active Reason For Referral No Information Medications Medication SIG (Take, Route, Frequency, Duration) Notes Start Date End Date Status LORazepam Active Zetia 10 MG 1 tablet Orally Once a day Active Ciclopirox Olamine 0.77 % 1 application Externally Twice a day; Duration: 30 days Not-Taking Cephalexin 500 MG 1 capsule Orally twi ce a day; Duration: 10 days 04/25/2023 Not-Takin g LamISIL AT 1 % 1 application to affected area Externally Twice a day to affected areas on feet; Duration: 30 days 09/04/2023 Not-Taking vitamin Active Tylenol Active Aleve Not-Taking Fish Oil Active Aspirin Active Toprol XL Active Lisinopril Active Immunizations Vaccine Route Administration Date Status Comme nts Influenza Unknown 02/10/2025 Refused COVID-19 Moderna Vaccine Unknown 09/28/2020 Administered Moderna 1st shot 08/31/2020 Social History Tobacco Use: Social History Observation Description Date Details (start date - stop date) Never Smoker NA - NA Tobacco use other than smoking: Question Answer Notes Are you an other tobacco user? No Tobacco Control (Standard) Question Answer Notes Tobacco use: Nonsmoker Additional Findings: Tobacco non-user Current no nsmoker AUDIT-C (Standard) Question Answer Notes Did you have a drink containing alcohol in the p ast year? No Points 0 Interpretation Negative Vital Signs Blood pressure diastolic 65` mm Hg 04/15/2025 Height 5ft in 04/15/2025 Blood pressure systolic 112 mm Hg 04/15/2025 Weight 210 lbs 04/15/2025 BMI 41.01 kg/m2 04/15/2025 Procedures Procedure Date Ordered Date Performed Result Body Sit e 30148-FXOKHQE NAIL, 6 OR MORE 07/29/2024 N/A 55923-AIYLYXT NAIL, 6 OR MORE 12/03/2024 N/A 14122-Begijvyb Plate 12/03/2024 N/A 26513-Xfcdudoi Plate Each Additional 12/03/2024 N/A 93924-QNLBENT NAIL, 6 OR MORE 02/10/2025 N/A 97230-Keawlfdq Plate 02/10/2025 N/A 67807-FWAPXNO NAIL, 6 OR MORE 04/15/2025 N/A Encounters Encounter Location Date Provider Diagnosis [address] [address] 07/29/2024 Selam Black Tinea unguium B35.1 ; Pain in right toe(s) M79.674 and Pain in left toe(s) M79.[address] [address] 12/03/2024 Selam Black Tinea unguium B35.1 ; Ingrown nail L60.0 ; Pain in right toe(s) M79.674 and Pain in left toe(s) M79.[address] [address] 02/10/2025 Selam Black Tinea unguium B35.1 ; Ingrown nail L60.0 ; Pain in right toe(s) M79.674 and Pain in left toe(s) M79.[address] [address] 04/15/2025 Selam Black Tinea unguium B35.1 ; Pain in right toe(s) M79.674 and Pain in left toe(s) M79.[address] [address] 09/30/2024 Selam Barragan Assessments Encounter Date Diagnosis (ICD Code) Assessment Notes Treatment Notes Treatment Clinical Notes Section Notes 07/29/2024 Tinea unguium (ICD-10 - B35.1) 07/29/2024 Pain in right toe(s) (ICD-10 - M79.674) 12/03/2024 Tinea unguium (ICD-10 - B35.1) 12/03/2024 Ingrown nail (ICD-10 - L60.0) 02/10/2025 Tinea unguium (ICD-10 - B35.1) 02/10/2025 Ingrown nail (ICD-10 - L60.0) 04/15/2025 Tinea unguium (ICD-10 - B35.1) 04/15/2025 Pain in right toe(s) (ICD-10 - M79.674) 04/15/2025 Pain in left toe(s) (ICD-10 - M79.675) 12/03/2024 Pain in right toe(s) (ICD-10 - M79.674) 02/10/2025 Pain in right toe(s) (ICD-10 - M79.674) 07/29/2024 Pain in left toe(s) (ICD-10 - M79.675) 12/03/2024 Pain in left toe(s) (ICD-10 - M79.675) 02/10/2025 Pain in left toe(s) (ICD-10 - M79.675) Plan Of Treatment Pending Test Test Name Order Date 13322-MJNPJTX NAIL, 6 OR MORE 05/05/2011 72399-ZLBGZCX NAIL, 6 OR MORE 12/15/2011 90187-NVYKYAL NAIL, 6 OR MORE 04/20/2015 37418-NGFEZXF NAIL, 6 OR MORE 07/09/2015 18159-NKGSFIC NAIL, 6 OR MORE 09/14/2015 80346-IDZGSVR NAIL, 6 OR MORE 12/14/2015 92135-UEQVYRJ NAIL, 6 OR MORE 03/14/2016 35293-AWNLLLI NAIL, 6 OR MORE 06/13/2016 77981-JCPFSYI NAIL, 6 OR MORE 10/03/2016 20785-UNVXZPQ NAIL, 6 OR MORE 12/12/2016 89764-FCFOZBZ NAIL, 6 OR MORE 02/13/2017 13432-BQSLUQG NAIL, 6 OR MORE 04/17/2017 75439-UPTIUTN NAIL, 6 OR MORE 06/19/2017 10010-YRPFHUK NAIL, 6 OR MORE 08/29/2017 66176-WAZPCLV NAIL, 6 OR MORE 10/31/2017 26511-JJAOETE NAIL, 6 OR MORE 01/08/2018 78058-UNWSTLN NAIL, 6 OR MORE 03/12/2018 23477-FBFERHI NAIL, 6 OR MORE 05/14/2018 49529-GWTMFOF NAIL, 6 OR MORE 07/16/2018 34915-NCJWNJM NAIL, 6 OR MORE 09/17/2018 16777-FCQRXLK NAIL, 6 OR MORE 11/19/2018 90959-XPVJJXA NAIL, 6 OR MORE 02/04/2019 37248-BHQSSQV NAIL, 6 OR MORE 04/08/2019 68186-JTYBAHX NAIL, 6 OR MORE 06/10/2019 31285-XGXJJPP NAIL, 6 OR MORE 08/12/2019 52436-YDHPVUW NAIL, 6 OR MORE 10/28/2019 03886-KSEOVPV NAIL, 6 OR MORE 12/30/2019 12394-ZEFEMQW NAIL, 6 OR MORE 02/17/2020 15587-LAFYCIO NAIL, 6 OR MORE 04/20/2020 79826-BHYEHFH NAIL, 6 OR MORE 06/22/2020 04249-DXEGZJI NAIL, 6 OR MORE 08/24/2020 86457-XSOMGWY NAIL, 6 OR MORE 10/27/2020 74170-ETDQRLU NAIL, 6 OR MORE 12/29/2020 88058-DGCJCMP NAIL, 6 OR MORE 07/12/2021 44729-PIGOCXL NAIL, 6 OR MORE 09/13/2021 70829-CNRISZL NAIL, 6 OR MORE 11/15/2021 38037-DQEEWXE NAIL, 6 OR MORE 01/24/2022 07813-QNDOJTD NAIL, 6 OR MORE 03/28/2022 71445-GEUYKCZ NAIL, 6 OR MORE 06/07/2022 02775-QXRUNWC NAIL, 6 OR MORE 08/15/2022 14676-FBVAXVH NAIL, 6 OR MORE 03/02/2021 93449-NXYGCRL NAIL, 6 OR MORE 05/04/2021 67489-XAFYNYU NAIL, 6 OR MORE 10/18/2022 12974-BCDFHCP NAIL, 6 OR MORE 12/20/2022 77631-JGNPTLM NAIL, 6 OR MORE 02/21/2023 80177-BPMSAVU NAIL, 6 OR MORE 04/25/2023 33739-SEVINEE NAIL, 6 OR MORE 06/05/2023 65818-EBJSDAI NAIL, 6 OR MORE 09/04/2023 99075-MHQBKXD NAIL, 6 OR MORE 11/06/2023 92946-FPPRUDR NAIL, 6 OR MORE 01/22/2024 86554-ZTDHUYV NAIL, 6 OR MORE 03/25/2024 54799-AMQMBCH NAIL, 6 OR MORE 05/27/2024 64958-TQHPKEC NAIL, 6 OR MORE 07/29/2024 35899-WRQRQMO NAIL, 6 OR MORE 12/03/2024 79176-DNNSGHZ NAIL, 6 OR MORE 02/10/2025 63457-HKAMFBU NAIL, 6 OR MORE 04/15/2025 84355-Thia Destruction, 1-14 04/17/2017 31981-Pjkd Destruction, -14 02/13/2017 72896-Qvzd Destruction, -14 10/03/2016 36575-Hilh Destruction, -14 12/12/2016 06422-Wmmc Destruction, -14 06/13/2016 08284-Ldzt Destruction, -14 03/14/2016 98127-Gjtlujvr Plate 04/20/2015 64165-Ssmobuqz Plate 04/17/2017 89062-Hnbbeinw Plate 01/08/2018 46174-Cfjtvarj Plate 03/12/2018 90287-Lpdpyhnc Plate 08/29/2017 10019-Dxfbqaoq Plate 06/22/2020 93021-Sefulcbz Plate 10/28/2019 34878-Wamouiql Plate 04/08/2019 56292-Agxyaqkq Plate 02/10/2025 99090-Wbdqqppw Plate 12/03/2024 62357-Hcbmnmlz Plate 01/22/2024 23674-Wlxxtwdo Plate 02/21/2023 09779-Fzdlwltn Plate 07/12/2021 35608-Wewgvicp Plate 01/24/2022 66436-Oyxspipa Plate 10/18/2022 18914-Hqefntpb Plate 12/30/2019 44982-Ukumqphq Plate 03/02/2021 89135-Aqrwnmwe Plate 12/29/2020 27004-Flhtdjzk Plate Each Additional 07/2020 29482-Vngctaav Plate Each Additional 37816-Mtecxybf Plate Each Additional 09/2024 05283-Oljjakeg Plate Each Additional 57623-Kotbiqqi Plate Each Additional 04/2018 74407-ZPN 04/25/2023 11687- Debride <25 sq cm 06/05/2023 46179-WKXRXMS SKIN/TISSUE 05/08/2023 20565 I&D ABSCESS- SIMPLE,SINGLE 019 03468, J0702- INJECT or DRAIN, JOINT/BUR SA 10/18/2022 43503-IMLY SKIN LESIONS, OVER 4 02/10/20 15 40319-LOSH SKIN LESIONS, OVER 4 12/17/19 14 63239-USMJ SKIN LESIONS, OVER 4 02/25/20 14 70154-CPYP SKIN LESIONS, OVER 4 08/07/19 15 65460-HQRS SKIN LESIONS, OVER 4 11/07/19 15 76923-KNJZ SKIN LESIONS, OVER 4 06/04/20 12 83578-TOLF SKIN LESIONS, OVER 4 12/15/19 12 59867-CIRB SKIN LESIONS, OVER 4 10/26/19 13 18361-GHEW SKIN LESIONS, OVER 4 12/28/19 13 66825-SZNW SKIN LESIONS, OVER 4 03/14/20 13 89177-YFNH SKIN LESIONS, OVER 4 05/27/20 13 76811-UXCO SKIN LESIONS, OVER 4 08/01/19 14 16423-LTJZ SKIN LESIONS, OVER 4 10/08/19 14 30122-BHAW SKIN LESIONS, 2 TO 4 11/07/19 15 05850-NPOA SKIN LESIONS, 2 TO 4 08/07/19 15 66414-WGII SKIN LESIONS, 2 TO 4 02/25/20 14 16270-LCIY SKIN LESIONS, 2 TO 4 02/10/20 15 00883-YVSJ SKIN LESIONS, 2 TO 4 12/17/19 14 30247, Z2150-TENFR/INJECT, JOINT/BURSA 1 92847, R1467-DCHFY/INJECT, JOINT/BURSA 0 12/20/2022 75490-JAYF NAIL(S) 05/27/2013 47025-MOKH NAIL(S) 03/14/2013 77849-ZHTO NAIL(S) 12/27/2012 64009-RTAC NAIL(S) 12/15/2011 25975-HJGA NAIL(S) 06/04/2012 G1705-ANRVZEKD DYSTROPHIC NAILS ANY # F9187-GYAAJHDR DYSTROPHIC NAILS ANY # U8001-RMFTTZTW DYSTROPHIC NAILS ANY # W9595-LJSKYYQX DYSTROPHIC NAILS ANY # E3581-QKKGZYFK DYSTROPHIC NAILS ANY # W2977-IAHGKTSZ DYSTROPHIC NAILS ANY # D8859-KXVDDLXB DYSTROPHIC NAILS ANY # Y9510-JHMMHYRZ DYSTROPHIC NAILS ANY # Next Appt Details Provider Name:Selam Hoyt Yung , 07/08/2025 08:15:00 AM, [address] [place], [address], Provider Name:Selam Barragan , 09/09/2025 08:00:00 AM, 1983 [facility] [place], [address], Insurance Providers Payer Name Payer Address Payer Phone Subscriber Number Group Number Insured Name Patient Relationship to Insured Coverage Start Date Coverage End Date Medicare National [employer] [address] [facility] 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 12 Osteoarthritis of right ankle and foot M 19.071 Skin ulcer of toe of left foot, limited to breakdown of skin L97.521 Surgical History Surgery Date(Month/Year) section stent insertion 08/2012 recunstive bowl surgery 06/19/2014 reverse illyostomy 09/15/2014 cataract surgery 12/2014 left knee replacement 08/09/2016 right knee replacement 10/2016 Hospitalization History Reason Date(Month/Year) [place] gall bladder [place] [facility] [place] K[place] Re[place] 7 [facility] for heart attack
--- OUTSIDE RECORDS SUMMARY | 2025-06-30 11:09 | XMS_ITS | Clinical Summary ---
Author Organization [facility] Address [address] [address] Phone Care Team Providers Care Cardiac Rehabilitation Specialist Name Role Phone Faustina Chung MD Primary Care Provider Medications metoprolol succinate (TOPROL XL) 100 MG 24 hr tablet Take 1.5 tablets by mouth daily. Active aspirin 81 MG EC tablet Take 1 tablet by mouth daily. Active lisinopril (PRINIVIL,ZESTR IL) 20 MG tablet Take 1 tablet by mouth daily. Active LORazepam (ATIVAN) 0.5 MG tablet Take 1 tablet by mouth nightly as needed. Active valACYclovir (VALTREX) 500 MG tablet Take 2 tablets by mouth as needed. Active Medication-Free Text Citalopram & Diet Manage Prod 10 MG Miscellaneous, Sig: Orally Active DOCOSAHEXANOIC ACID/EPA (FISH OIL ORAL) Active DOCUSATE SODIUM (STOOL SOFTENER ORAL) Active Medication-Free Text TraMADol HCl 50 MG Tablet Soluble, Sig: Orally Active ezetimibe (ZETIA) 10 mg tabletIndicatio ns:Prescription refill TAKE ONE TABLET BY MOUTH EVERY DAY 90 tablet 3 8 Active Family History Medical History Relation Comments CV disease Father 2 CV disease Mother 2 Relation Status Comments Father 1 Alive Father 2 Mother 1 Alive Mother 2 Social History Tobacco Use Types Packs/Day Years Used Date Smoking Tobacco: Never Assessed Education Answer Date Recorded Are you interested in more education? Not on flor e 10/27/2022 Are you concerned about learning? Not on file 10/27/2022 No 10/27/2022 No 10/27/2022 Digital Access Answer Date Recorded No 11/25/2022 No 11/25/2022 Reliable internet access at home? Not on file 11/25/2022 Device with a working camera? Not on file Comments Unknown Sex and Gender Information Value Date Recorded Sex Assigned at Not on file Legal Sex Female 10:36 PM EDT Gender Identity Not on file Sexual Orientation Not on file Last Filed Vital Signs Vital Sign Reading Time Taken Comments Blood Pressure 138/80 10/24/2016 10:13 AM EDT Pulse 70 10/24/2016 10:13 AM EDT Temperature - - Respiratory Rate - - Oxygen Saturation - - Inhaled Oxygen Concentration - - Weight 102.2 kg (225 lb 3.2 oz) 017 10:13 AM EDT Height 157.5 cm (5' 2 ) 10/24/2016 10:1 3 AM EDT Body Mass Index 41.19 10/24/2016 10:13 AM EDT Plan of Treatment Health Maintenance Due Date Last Done Comments Adult Td,Tdap Booster 1950 CREATININE LEVEL 1950 LIPID PANEL 1950 POTASSIUM LEVEL 1950 DEPRESSION SCREENING 1962 SMOKING Hx and SMOKELESS TOBACCO SCREENING 1963 HEPATITIS C SCREENING 1968 COLOGUARD 1995 COLONOSCOPY 1995 COLORECTAL CANCER SCREENING 1995 FIT TEST 1995 FOBT 1995 SIGMOIDOSCOPY 1995 VIRTUAL COLONOSCOPY 1995 ZOSTER VACCINES (1 of 2) 2000 OSTEOPOROSIS SCREENING INITIAL (ONE-TIME) 2015 INFLUENZA VACCINE (#1) 2025 , 07/30/2018, 03/08/2017, Additional history exists COVID-19 VACCINE ( season) 2025 09/28/2020, 08/31/2020 RSV VACCINE (1 - 1-dose 75+ series) 2025 PNEUMOCOCCAL VACCINES (50+ years) Completed 06/14/2020, 07/30/2018, 06/20/2014 HEPATITIS A VACCINES Aged Out No long er eligible based on patient's age to complete this topic HIB VACCINES Aged Out No longer eligi ble based on patient's age to complete this topic MENINGOCOCCAL VACCINES (ACWY) Aged Out No longer eligible based on patient's age to complete this topic MENINGOCOCCAL VACCINES (B) Aged Out N o longer eligible based on patient's age to complete this topic Medical Devices Not on file Insurance MEDICARE PART A & B [employer] MEDEX SUPPLEMENT MEDICARE PART A & B [employer] MEDEX SUPPLEMENT MEDICARE PART A & B [facility] MEDEX SUPPLEMENT MEDICARE PART A & B [employer] MEDEX SUPPLEMENT MEDICARE PART A & B [employer] MEDEX SUPPLEMENT Member Subscriber Plan / Payer [facility]Present) Name:Elsy Adamson Relation to Subscriber:Self Name:ELSY ADAMSON Payer ID:[id number] ([facility]) Type:Indemnity Address: [place] [address] MEDICARE PART A & B [employer] MEDEX SUPPLEMENT Member Subscriber Plan / Payer ([facility]-Present) Name:Elsy Adamson Relation to Subscriber:Self Name:ELSY ADAMSON Payer ID:[id number] ([employer]) Type:Indemnity Address: [place] [address] MEDICARE PART A & B Member Subscriber Plan / Payer ([facility]Present) Name:Elsy Adamson Member ID:[id number] Relation to Subscriber:Self Name:Elsy Adamson Subscriber ID:[id number] Payer ID:[id number] Group ID:Not on file Type:Medicare Address: [employer] [address] [place] [id number] [employer] MEDEX SUPPLEMENT Member Subscriber Plan / Payer ([facility]2015-Present) Name:Elsy Adamson Relation to Subscriber:Self Name:ELSY ADAMSON Payer ID:[id number] (NAIC) Type:Indemnity Address: [place] [address] MEDICARE PART A & B [employer] CROSS MEDEX SUPPLEMENT MEDICARE PART A & B [employer] MEDEX SUPPLEMENT Care Teams Cardiac Rehabilitation Specialist Relationship Specialty Start Date End Date Faustina Chung MD [address] [facility] [address] [place], [place] [address] PCP - General 04/19/17 Additional Source Comments The information contained in this document represents components of the legal health record. It is not the complete legal health record.[facility]
--- OUTSIDE RECORDS SUMMARY | 2025-06-30 11:09 | XMS_ITS | Patient Health Record ---
Author Organization [facility] Address [address] [place] [address] Care Team Providers Care Mine Car Repairer Name Role Phone Faustina Chung MD Primary Care Provider Emery Hodges Unavailable [phone] Allergies Allergen (clinical drug ingredient) Drug/Non Drug Allergy documented on EMR Reaction Allergy Type Onset Date Status Codeine Phosphate Unknown Drug Allergy Active Reason For Referral No Information Medications Medication SIG (Take, Route, Frequency, Duration) Notes Start Date End Date Status Hyoscyamine Sulfate 0.125 MG Tablet 1-2 tablets Orally Q 6 hours prn abdominal bloating/cramping; Duration: 30 days 01/23/2014 Active Plavix 75mg Active Aspir-81 81 MG QD Activ e Fish Oil 1200MG QD Acti ve Zetia 10mg Active Tylenol Active Fiber Therapy Active Stool Softener QD Activ e Metoprolol & Diet Manage Prod 150MG QD Active Lisinopril 20MG QD Acti ve Social History Social History Additional Details Category Social Info Options Details Miscellaneous: Marital status: Occupation: retired Section Notes: Nonsmoker; no sig. alcohol. Has alot of stress due to 's illness with a CVA and needs alot of care. Nonsmoker; no sig. alcohol. Has alot of stress due to 's illness with a CVA and needs alot of care. Problems Problem Type SNOMED Code ICD Code Onset Dates Problem Status W/U Status Risk Notes Problem Diarrhea (87323676) Diarrhea (787.91) Active confirmed Problem Right upper quadrant pain (074691488) Abdominal pain, right upper quadrant (789.01) Active confirmed Problem Constipation (94236378) Constipation (564.00) Active confirmed Problem Colon cancer screening (720523046) Colon cancer screening (V76.51) Active confirmed Problem Irritable bowel (00816363) Irritable bowel (564.1) Active confirmed Encounters Encounter Location Date Provider Diagnosis [facility] [address] [place] [address] 07/25/2024 Emery Monterroso Plan Of Treatment Future Test Test Name Order Date COLONOSCOPY 07/25/2013 Insurance Providers Payer Name Payer Address Payer Phone Subscriber Number Group Number Insured Name Patient Relationship to Insured Coverage Start Date Coverage End Date MEDICARE OF [place] [address] [place] [address] [id number] JUAN DIEGO MARY ANN Self - patient is the insured [employer] ATT[employer] CLAIMS [address] [place] [address] [id number] JAQUELIN ADAMSONRA Self - patient is the insured Medical (General) History Medical History History ICD Code colonoscopy 01/05/2003--neg. 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 Renay vernon--fine since negative abdominal ultrasoun d and celiac disease serologies in June of 2013 Surgical History Surgery Date(Month/Year) X2 KAROL for uterine cancer tonsillectomy
[2025-06-30 11:13] LABS: Alanine Aminotransferase 11 U/L (0-31); Anion Gap 11 (12-20); Aspartate Amino Transferase 20 U/L (5-31); Blood Urea Nitrogen 19 mg/dL (9-16); Calcium 8.9 mg/dL (8.4-10.2); Carbon Dioxide 30 mmol/L (22-29); Chloride 103 mmol/L (96-108); Cholesterol 177 mg/dL (<200); Estimated Glomerular Filt Rate 60; HDL Cholesterol 52 mg/dL (>40); Potassium 5.0 mmol/L (3.3-5.1); Sodium 139 mmol/L (135-145); Triglycerides 93 mg/dL (<150)
== END 2025-06-30 08:59 | disposition home or self-care (01) ==
LOC: HO.HMGCLDS 08:58
PROVIDERS: PCP Internal Medicine; Visit Provider Internal Medicine
DX: I25.10 Atherosclerotic heart disease of native coronary artery without angina pectoris (principal); E55.9 Vitamin D deficiency, unspecified; Z78.0 Asymptomatic menopausal state; F41.1 Generalized anxiety disorder; I10 Essential (primary) hypertension; E78.5 Hyperlipidemia, unspecified; Z13.1 Encounter for screening for diabetes mellitus
CPT/HCPCS: 36415; 80048; 80061; 82043; 82306; 82570; 83036; 84450; 84460